=== PATIENT | female | born 1945 | race Caucasian/White ===

== ENCOUNTER 2017-02-18 10:33 | Day surgery (SDC) | payer BC ==
[~2017-02-18 10:33] MED LIST: Acetaminophen TAB* 325 MG PO PRN; Buffered Lidocaine 1% SYR 3ML* 3 ML/SYR SYRINGE INTRADERM ONE
[2017-02-18] MEDS ORDERED: Midazolam* 1 MG/ML 2 ML VIAL (2 MG) ONE (11:15)
[2017-02-18] MEDS ORDERED: fentaNYL* 50 MCG/ML 2 ML VIAL (100 MCG VIAL) ONE (11:15)
[2017-02-18] MEDS ORDERED: Cyclopentolate 1% OPTH.SOL* 2 ML BTL ONE (11:27)
[2017-02-18] MEDS ORDERED: Flurbiprofen 0.03% OPTH.SOL* 2.5 ML BTL ONE (11:27)
[2017-02-18] MEDS ORDERED: Tetracaine 0.5% OPTH.SOL 4 ML* 1 DROP BTL ONE (11:27)
[2017-02-18] MEDS ORDERED: Phenylephrine 2.5% OPTH.SOL* 2 ML BTL ONE (11:27)
[2017-02-18] MEDS ORDERED: Neomycin/Polymy/Dex OPHTH.OIN* 3.5 GM ONE (11:27)
[2017-02-18] MEDS ORDERED: Lidocaine 1% MPF* 2 ML VIAL ONE (11:27)
[2017-02-18] MEDS ORDERED: Tropicamide 1% OPTH.SOL* BTL ONE (11:27)
[2017-02-18 12:27] VITALS: BP 147/85
--- NOTE | 2017-02-18 15:42 | OP ---
DATE OF OPERATION/DATE OF DICTATION: 02/18/2017. DATE OF : 1945. SURGEON: Dr. Orlin Barragan. ACID TESTER: None. ANESTHESIA: Topical with intravenous sedation. PRE-OP DIAGNOSIS: Cataract, left eye. POST-OP DIAGNOSIS: Cataract, left eye. OPERATIVE PROCEDURE: Phacoemulsification and cataract extraction with posterior chamber intraocular lens implant, left eye. COMPLICATIONS: None. BLOOD LOSS: None. OPERATIVE FINDINGS: The patient was brought to the operating room and received a small amount of in travenous sedation. A drop of Tetracaine was placed in her left eye. She was prepped and draped in the usual sterile fashion for ophthalmic surgery and attention was directed to the left eye where a speculum was placed. A paracentesis was created at the 5 o'clock position and 0.1 cc of 1 percent preservative-free Lidocaine was injected into the anterior chamber followed by DisCoVisc. The eye w as digitally stabilized while a 2.75 mm keratome was used to create a triplanar clear corneal incisi on at the 3 o'clock position. A continuous curvilinear capsulorrhexis was created with a cystotome and Utrata forceps. BSS on a cannula was used to hydrodissect the lens from the capsule. Phacoemul sification was performed in a [id number] technique to create four fragments which were remov ed. Residual cortical material was removed with irrigation and aspiration. DisCoVisc was used to in flate the capsular bag and an AUOOTO 18.5 diopter lens was folded and inserted into the capsular bag . DisCoVisc was removed using irrigation and aspiration. BSS on a cannula was used to hydrate the corneal stroma and seal the wound. At the end of the case the pupil was round and the lens was cent ered. The eye was of normal pressure and the wound was water tight. The speculum was removed and to pical Maxitrol ointment was placed on the surface of the eye. The eye was closed, patched and shiel ded and the patient was sent to the recovery room in stable condition with post operative instructio ns and follow-up appointment given. [id number]/[facility] #: [id number]
== END 2017-02-18 12:20 | disposition home or self-care (01) ==
LOC: OREAST 10:33
PROVIDERS: ATTEND Ophthalmology
DX: H25.12 Age-related nuclear cataract, left eye (principal); I10 Essential (primary) hypertension; I25.10 Atherosclerotic heart disease of native coronary artery without angina pectoris; Z87.891 Personal history of nicotine dependence
CPT/HCPCS: A9270-GY; J2250; J3010; V2632

== ENCOUNTER 2017-02-25 07:49 | Day surgery (SDC) | payer BC ==
[~2017-02-25 07:49] MED LIST changes: -Buffered Lidocaine 1% SYR 3ML* 3 ML/SYR SYRINGE INTRADERM ONE; +Buffered Lidocaine 1% SYRIN* 5 ML/SYR SYRINGE INTRADERM ONE
[2017-02-25] MEDS ORDERED: Midazolam* 1 MG/ML 5 ML VIAL (5 MG) ONE (08:55)
[2017-02-25] MEDS ORDERED: fentaNYL* 50 MCG/ML 2 ML VIAL (100 MCG VIAL) ONE (08:55)
[2017-02-25 10:23] VITALS: BP 146/86
--- NOTE | 2017-02-25 10:33 | OP ---
DATE OF OPERATION/DATE OF DICTATION: 02/25/2017 - [facility] DATE OF : 1945. SURGEON: Dr. Orlin Barragan. SANDWICH ARTIST: None. ANESTHESIA: Topical with intravenous sedation. PRE-OP DIAGNOSIS: Cataract, right eye. POST-OP DIAGNOSIS: Cataract, right eye. OPERATIVE PROCEDURE: Phacoemulsification and cataract extraction with posterior chamber intraocular lens implant, right eye. COMPLICATIONS: None. BLOOD LOSS: None. DESCRIPTION OF PROCEDURE: The patient was brought to the operating room and received a small amount of intra-venous sedation. A drop of Tetracaine was placed in her right eye. She was prepped and draped in the usual sterile fashion for ophthalmic surgery and attention was directed to the right eye where a speculum was placed. A paracentesis was created at the 11 o'clock position and 0.1 cc of 1 percent preservative-free Lidocaine was injected into the anterior chamber followed by DisCoVisc. The eye was digitally stabilized while a 2.75 mm keratome was used to create a triplanar clear corneal incision at the 9 o'clock position. A continuous curvilinear capsulorrhexis was created with a cystotome and Utrata forceps. BSS on a cannula was used to hydrodissect the lens from the capsule. Phacoemulsification was performed in a divide-and- conquer technique to create four fragments which were removed. Residual cortical material was removed with irrigation and aspiration. DisCoVisc was used to inflate the capsular bag and an AUOOTO 18.5 diopter lens was folded and inserted into the capsular bag. DisCoVisc was removed using irrigation and aspiration. BSS on a cannula was used to hydrate the corneal stroma and seal the wound. At the end of the case the pupil was round and the lens was centered. The eye was of normal pressure and the wound was water tight. The speculum was removed and topical Maxitrol ointment was placed on the surface of the eye. The eye was closed, patched and shielded and the patient was sent to the recovery room in stable condition with post operative instructions and follow-up appointment given. [id number]/[facility] #: [id number] MTDD
[2017-02-25] MEDS ORDERED: Cyclopentolate 1% OPTH.SOL* 2 ML BTL ONE (13:22)
[2017-02-25] MEDS ORDERED: Lidocaine 1% MPF* 2 ML VIAL ONE (13:22)
[2017-02-25] MEDS ORDERED: Flurbiprofen 0.03% OPTH.SOL* 2.5 ML BTL ONE (13:22)
[2017-02-25] MEDS ORDERED: Tetracaine 0.5% OPTH.SOL 4 ML* 1 DROP BTL ONE (13:22)
[2017-02-25] MEDS ORDERED: Phenylephrine 2.5% OPTH.SOL* 2 ML BTL ONE (13:22)
[2017-02-25] MEDS ORDERED: Tropicamide 1% OPTH.SOL* BTL ONE (13:22)
[2017-02-25] MEDS ORDERED: Neomycin/Polymy/Dex OPHTH.OIN* 3.5 GM ONE (13:22)
== END 2017-02-25 10:12 | disposition home or self-care (01) ==
LOC: OREAST 07:49
PROVIDERS: ATTEND Ophthalmology
DX: H25.11 Age-related nuclear cataract, right eye (principal); I10 Essential (primary) hypertension
CPT/HCPCS: A9270-GY; J2250; J3010; V2632

== ENCOUNTER 2017-06-02 07:36 | Inpatient (IN) | payer BC, MEDICARE ==
[~2017-06-02 07:36] MED LIST changes: -Acetaminophen TAB* 325 MG PO PRN; +Buffered Lidocaine 0.9% SYRIN* 5 ML/SYR SYRINGE INTRADERM ONE; -Buffered Lidocaine 1% SYRIN* 5 ML/SYR SYRINGE INTRADERM ONE; +Dexamethasone IV* 4 MG/ML 1 ML (4 MG) IV SLOW PU ONE; +Famotidine IV* 10 MG/ML 2 ML (20 mg) IV ONE
[2017-06-02] MEDS ORDERED: ceFAZolin 2 GM PREMIX (*) 50 ML IVPB ONE (07:58)
[2017-06-02] MEDS ORDERED: Buffered Lidocaine 0.9% SYRIN* 5 ML/SYR SYRINGE ONE (07:58)
[2017-06-02] MEDS ORDERED: Famotidine IV* 10 MG/ML 2 ML (20 mg) ONE (07:58)
[2017-06-02] MEDS ORDERED: Dexamethasone IV* 4 MG/ML 1 ML (4 MG) ONE ×2 (07:58→08:33)
[2017-06-02] MEDS ORDERED: Ondansetron INJ* 2 MG/ML VIAL ONE (08:33)
[2017-06-02] MEDS ORDERED: Lidocaine 2% PF * 5 ML VIAL ONE (08:33)
[2017-06-02] MEDS ORDERED: Propofol* 10 MG/ML 20 ML BTL IV PUSH ONE (08:33)
[2017-06-02] MEDS ORDERED: Ketorolac INJ* 30 MG/ML 1 ML VIAL ONE (08:33)
[2017-06-02] MEDS ORDERED: fentaNYL* 50 MCG/ML 2 ML VIAL (100 MCG VIAL) ONE ×2 (08:33→11:05)
[2017-06-02] MEDS ORDERED: Midazolam* 1 MG/ML 5 ML VIAL (5 MG) ONE (08:34)
[2017-06-02] MEDS ORDERED: KETAMINE HCL* 50 MG/ML 10 ML VIAL ONE (08:34)
[2017-06-02] MEDS ORDERED: Bupivacaine 0.5% SDV PF* 30 ML VIAL ONE (09:04)
[2017-06-02] MEDS ORDERED: Lidocaine 2% PF* 10 ML AMP ONE ×2 (09:04→12:15)
[2017-06-02] MEDS ORDERED: Cisatracurium* 2 MG/ML MDV 5 ML ONE (09:22)
[2017-06-02] MEDS ORDERED: DiMENhydriNATE IV* 50 MG/ML VIAL IV PUSH PRN (09:59)
[2017-06-02] MEDS ORDERED: HYDROmorphone* 1 MG/ML 1 ML SYR IV PRN (09:59)
[2017-06-02] MEDS ORDERED: Morphine INJ* 2 MG/ML 1 ML SYRINGE IV PRN (10:51)
[2017-06-02] MEDS ORDERED: Acetaminophen TAB* 325 MG PO PRN (10:51)
[2017-06-02] MEDS ORDERED: oxyCODONE TAB* 5 MG TAB PO PRN (10:51)
[2017-06-02] MEDS ORDERED: Temazepam CAP* 15 MG PO PRN (10:57)
[2017-06-02] MEDS ORDERED: diPHENhydraMINE IV* 50 MG/ML 1 ml VIAL (BENADRYL) IV PRN (10:57)
[2017-06-02] MEDS ORDERED: ALPRAZolam TAB* 0.5 MG PO PRN (10:59)
[2017-06-02] MEDS: fentaNYL* 50 MCG/ML 2 ML VIAL (100 MCG VIAL) IV PRN ×4 (11:05→12:01)
[2017-06-02] MEDS ORDERED: HYDROmorphone* 1 MG/ML 1 ML SYR ONE (11:31)
[2017-06-02] MEDS ORDERED: oxyCODONE/Acetamin 5/325 MG* TAB ONE (12:09)
[2017-06-02] MEDS: oxyCODONE/Acetamin 5/325 MG* TAB PO PRN ×3 (12:10→20:36)
[2017-06-02 12:40] LABS: Hematocrit 42 % (35-47); Hemoglobin 13.8 g/dl (12.0-16.0)
[2017-06-02] MEDS: Enoxaparin(*) 30 MG/0.3 ML SYR SUBCUT SCH (16:32)
[2017-06-02] MEDS: ceFAZolin 1 GM VIAL(*) 1 GM in NS 0.9% 50 ML* 50 ML IVPB SCH (17:17)
[2017-06-02] MEDS: Docusate CAP* 100 MG PO SCH (20:36)
[2017-06-03] MEDS: oxyCODONE/Acetamin 5/325 MG* TAB PO PRN ×5 (01:28→23:31)
[2017-06-03] MEDS: ceFAZolin 1 GM VIAL(*) 1 GM in NS 0.9% 50 ML* 50 ML IVPB SCH ×2 (01:28→10:00)
--- NOTE | 2017-06-03 05:06 | OP ---
DATE OF OPERATION: 06/02/17 - ROOM #332 DATE OF : [birth year] SURGEON: Dagoberto Mcgregor MD BOAT GARNISHER: Linda Li PA-C ANESTHESIOLOGIST: Chago Bernardo MD ANESTHESIA: General PRE-OP DIAGNOSIS: Chronic Achilles tendinosis. POST-OP DIAGNOSIS: Chronic Achilles tendinosis. OPERATIVE PROCEDURE: Right Achilles advancement with posterior calcanectomy. DESCRIPTION OF PROCEDURE: The patient was taken to the operating room, prone positioning used. We made a 12-cm longitudinal incision medial to the Achilles tendon. Full-thickness flap was raised off of the tendon and circum-ferentially at the insertion point. We reflected the tendon proximally. There was a large central bone body within the distal tendon, which was debrided and then we performed a posterior calcanectomy with a microsagittal saw. Proximally, a V-Y lengthening was performed with approximately 6-cm limbs, gaining about 2 cm of length. Medial and lateral closure of the V was performed with 2-0 Vicryl sutures. The Achilles was then advanced down to the bed of the calcaneus using through bone sutures of #1 Vicryl. The sutures were tied over the plantar heel, paired sutures were used. We then closed the subcutaneous tissue with 2-0 Vicryl, jeffy for the skin, and a compression dressing plaster splint applied. [id number]/[facility] #: [id number] MTDD
[2017-06-03 06:42] LABS: Mean Platelet Volume 9 um3 (7.4-10.4)
[2017-06-03 06:55] LABS: BUN/Creatinine Ratio 19.8 (8-20); EGFR African American 69.3 (>60); EGFR Non-African American 53.9 (>60); Potassium 4.1 mmol/L (3.5-5.0)
--- NOTE | 2017-06-03 09:26 | PN ---
Progress Note - Progress Note Date of Service: 06/03/17 SOAP: Subjective: []Patient seen at bedside. Admits to putting weight on her splint overnight trying to get to the commode urgently. She understands her NWB status and will get help to use BR. Her pain is managed, she requests rehab here at [facility]. Denies SOB, CP or dizziness. Objective: [] Vital Signs Temp 97.9 F 06/03/17 07:22 Pulse 66 06/03/17 07:25 Resp 16 06/03/17 07:52 BP 107/53 06/03/17 07:25 Pulse Ox 96 06/03/17 07:22 Intake & Output 06/02/17 06/03/17 06/03/17 18:59 06:59 18:59 Intake Total 1350 1913 Output Total 200 1475 300 Balance 1150 438 -300 Weight 261 lb 3.2 oz Intake: IV Fluids 1350 1113 LR 1300 1113 NS 50ML, Cefazolin 2G 50 IVPB 100 ABX - CEFAZOLIN 100 Oral 700 Output: Urine 200 1475 300 Other: # Bowel Movements 0 Laboratory Results - last 24 hr 06/02/17 06/03/17 06/03/17 12:28 05:35 05:35 Hgb 13.8 Hct 42 Plt Count 222 MPV 9 Sodium 137 Potassium 4.1 Chloride 104 Carbon Dioxide 29 Anion Gap 4 BUN 20 Creatinine 1.01 H Est GFR ( Amer) 69.3 Est GFR (Non-Af Amer) 53.9 BUN/Creatinine Ratio 19.8 Glucose 116 H Calcium 9.0 Right ankle spint is dry and intact toes are pink and warm, full sensation with motion Assessment: []s/p Right ankle achillies advancement and calcanectomy, for chronic achillies calcific tendonitis, POD #1 Plan: []PT/OT NWB right LE Lovenox BID [facility] consult
[2017-06-03] MEDS: Gabapentin CAP(*) 300 MG PO SCH (10:03)
[2017-06-03] MEDS: Cholecalciferol TAB* 1000 UNITS PO SCH (10:05)
[2017-06-03] MEDS: Omeprazole CAP* 20 MG PO SCH (10:05)
[2017-06-03] MEDS: Docusate CAP* 100 MG PO SCH ×2 (10:06→20:29)
[2017-06-03] MEDS: Oxybutynin XL TAB* 5 MG PO SCH (10:06)
[2017-06-03] MEDS: Citalopram TAB* 20 MG PO SCH (10:06)
[2017-06-03] MEDS: Lisinopril TAB* 10 MG PO SCH (10:07)
[2017-06-03] MEDS: Lactobacillus Acidophilu (GG)* 1 CAP CAP PO SCH (10:07)
[2017-06-03] MEDS: Enoxaparin(*) 30 MG/0.3 ML SYR SUBCUT SCH (14:53)
[2017-06-03] MEDS: Calcium Carbonate CHEW TAB* 500 MG (TUMS) PO PRN (19:09)
[2017-06-04] MEDS: Calcium Carbonate CHEW TAB* 500 MG (TUMS) PO PRN ×2 (00:46→14:17)
[2017-06-04] MEDS ORDERED: HYDROmorphone* 1 MG/ML 1 ML SYR IV SLOW PU ONE (02:00)
--- NOTE | 2017-06-04 02:00 | PN ---
Progress Note - Progress Note Date of Service: 06/04/17 Note: Called to see patient because of chest pain. She says it started in the back of her neck on the right side. Then migrated down to her right chest to her abdomen. Pain is reproducible on palpation. No SOB. Got percocet without relief. VSS Chest CTA, CV S1S2 isamar RRR, Abd+BS soft NT/ ND EKG NSR no acute st- t wave changes. Unlikely cardiac or PE. Dilaudid 0.5 IV x 1. Cycle trops. Reassured patient
[2017-06-04] MEDS ORDERED: HYDROmorphone* 1 MG/ML 1 ML SYR ONE (02:03)
[2017-06-04] MEDS: Cholecalciferol TAB* 1000 UNITS PO SCH (09:18)
[2017-06-04] MEDS: Gabapentin CAP(*) 300 MG PO SCH (09:18)
[2017-06-04] MEDS: Citalopram TAB* 20 MG PO SCH (09:19)
[2017-06-04] MEDS: Omeprazole CAP* 20 MG PO SCH (09:19)
[2017-06-04] MEDS: Docusate CAP* 100 MG PO SCH ×2 (09:19→21:45)
[2017-06-04] MEDS: Lactobacillus Acidophilu (GG)* 1 CAP CAP PO SCH (09:19)
[2017-06-04] MEDS: Oxybutynin XL TAB* 5 MG PO SCH (09:19)
[2017-06-04] MEDS: Lisinopril TAB* 10 MG PO SCH (09:19)
--- NOTE | 2017-06-04 09:38 | PN ---
Progress Note - Progress Note Date of Service: 06/04/17 SOAP: Subjective: []Patient seen at bedside, sleepy but arouses to voice. She had an episode of posterior right sided neck pain that radiated to her chest. Dr. Sawyer evaluated last night, EKG/labs normal. The patient thinks it was indigestion as she did not have her Nexium medication yesterday. Her pain is currently resolved. Ankle pain is also tolerable. She was denied at [facility]. Objective: [] Vital Signs Temp 99.2 F 06/04/17 07:17 Pulse 85 06/04/17 07:17 Resp 18 06/04/17 09:18 BP 144/62 06/04/17 07:17 Pulse Ox 95 06/04/17 08:00 Intake & Output 06/03/17 06/04/17 06/04/17 18:59 06:59 18:59 Intake Total 930 1442 683 Output Total 1175 700 400 Balance -245 742 283 Intake: IV Fluids 302 683 LR 302 683 Oral 930 1140 Output: Urine 1175 700 400 Other: # Bowel Movements 0 Laboratory Results - last 24 hr 06/04/17 06/04/17 02:24 05:42 Troponin I 0.01 0.02 Right ankle splint remains clean and dry moves toes well full sensation and circulation Assessment: []s/p achillies advancement/ calcanectomy POD #2 Plan: []PT/OT NWB RLE Await SNF bed availability
[2017-06-04] MEDS: oxyCODONE/Acetamin 5/325 MG* TAB PO PRN (13:20)
[2017-06-04] MEDS: Enoxaparin(*) 30 MG/0.3 ML SYR SUBCUT SCH (15:15)
[2017-06-05] MEDS: Calcium Carbonate CHEW TAB* 500 MG (TUMS) PO PRN (06:22)
--- NOTE | 2017-06-05 08:03 | PN ---
PROGRESS NOTE: DATE OF SERVICE: 06/05/17 - ROOM #332 HISTORY: Radha is now 3 days post right Achilles advancement. The splint is clean and dry and intact. She has had some issues with her immobility including incontinence in the bed and recently she was evaluated for some upper gastric pain which did not appear to be cardiac related. She states that she has been missing her Nexium. Radha is in the bed and comfortable, although somewhat anxious about her immobility and the incontinence in the bed. I assured her that this will get better as she gets stronger and is able to use the walker more independently. It sounds like a good plan that she is going to [facility] for rehab. I think she needs to be supervised for at least couple of weeks while she becomes more independent. She does not really have any significant help at home. She needs to be nonweight-bearing for 6 weeks. We will follow her in my office at [facility] which is close to [facility]. [id number]/[facility] #: [id number] MTDD
[2017-06-05] MEDS: Oxybutynin XL TAB* 5 MG PO SCH (09:11)
[2017-06-05] MEDS: Citalopram TAB* 20 MG PO SCH (09:11)
[2017-06-05] MEDS: Lisinopril TAB* 10 MG PO SCH (09:11)
[2017-06-05] MEDS: Docusate CAP* 100 MG PO SCH ×2 (09:11→20:03)
[2017-06-05] MEDS: Cholecalciferol TAB* 1000 UNITS PO SCH (09:12)
[2017-06-05] MEDS: Lactobacillus Acidophilu (GG)* 1 CAP CAP PO SCH (09:12)
[2017-06-05] MEDS: Gabapentin CAP(*) 300 MG PO SCH (09:12)
[2017-06-05] MEDS: Omeprazole CAP* 20 MG PO SCH (09:12)
[2017-06-05] MEDS: oxyCODONE/Acetamin 5/325 MG* TAB PO PRN ×2 (11:01→20:02)
[2017-06-05] MEDS: Enoxaparin(*) 30 MG/0.3 ML SYR SUBCUT SCH (15:04)
--- NOTE | 2017-06-06 08:52 | PN ---
Progress Note - Progress Note Date of Service: 06/06/17 SOAP: Subjective: 72 y/o female s/p achillies advancement/ calcanectomy POD #3. Patient is unsure about returning to home, has 4 steps to get into home/ out of home and would like ambulance to transport her to office appts due to immobility. VSS, afebrile overnight. Objective: General- Well appearing, resting in chair, NAD, comfortable MSK- surgical splint in place, no drainage. + movement of 1-3 toes L side, non -tender, cap refill <2, warm/ pink. no pain L knee, full ROM. Vital Signs Temp 98.1 F 06/06/17 03:25 Pulse 76 06/06/17 03:25 Resp 20 06/06/17 03:25 BP 143/51 06/06/17 03:25 Pulse Ox 90 06/06/17 03:25 Intake & Output 06/05/17 06/06/17 06/06/17 18:59 06:59 18:59 Intake Total 1600 500 0 Output Total 250 300 400 Balance 1350 200 -400 Intake: Oral 1600 500 0 Output: Urine 250 300 400 Other: Estimated Void Large Large # Voids 2 1 Assessment: 72 y/o female s/p achillies advancement/ calcanectomy POD #3. Plan: - D/C to rehab today to continue PT prior to d/c home - Follow up with Dr Carpenter, appt made - Continue current pain regimen - U/A today Active Medications Generic Name Dose Route Start Last Admin Trade Name Freq PRN Reason Stop Dose Admin Acetaminophen 650 mg 06/02/17 10:51 Tylenol Tab* PO Q4H PRN PAIN OR TEMPERATURE Alprazolam 0.5 mg 06/02/17 10:59 06/04/17 00:16 Xanax Tab* PO 0.5 mg BID PRN Administration ANXIETY Calcium Carbonate 1,000 mg 06/03/17 18:42 06/05/17 06:22 Tums* PO 1,000 mg QID PRN Administration INDIGESTION Cholecalciferol 5,000 units 06/03/17 09:00 06/05/17 09:12 Vitamin D Tab* PO 5,000 units QAM JIM Administration Citalopram Hydrobromide 20 mg 06/03/17 09:00 06/05/17 09:11 Celexa Tab* PO 20 mg QAM JIM Administration Diphenhydramine HCl 25 mg 06/02/17 10:57 Benadryl Iv* IV Q6H PRN itching Docusate Sodium 100 mg 06/02/17 21:00 06/05/17 20:03 Colace Cap* PO 100 mg BID JIM Administration Enoxaparin Sodium 30 mg 06/02/17 15:00 06/05/17 15:04 Lovenox(*) SUBCUT 30 mg Q24H JIM Administration Gabapentin 900 mg 06/03/17 09:00 06/05/17 09:12 Neurontin Cap(*) PO 900 mg QAM JIM Administration Lactated Ringer's 1,000 mls @ 75 mls/hr 06/02/17 11:00 06/04/17 07:46 Lactated Ringers 1000 Ml Bag* IV 75 mls/hr PER RATE JIM Administration Lactobacillus Rhamnosus 1 cap 06/03/17 09:00 06/05/17 09:12 Culturelle* PO 1 cap QAM JIM Administration Lisinopril 10 mg 06/03/17 09:00 06/05/17 09:11 Prinivil Tab* PO 10 mg QAM JIM Administration Morphine Sulfate 2 mg 06/02/17 10:51 Morphine Inj (Syringe)* IV Q2H PRN PAIN Omeprazole 20 mg 06/03/17 09:00 06/05/17 09:12 Prilosec Cap* PO 20 mg QAM JIM Administration Protocol Oxybutynin Chloride 15 mg 06/03/17 09:00 06/05/17 09:11 Ditropan Xl Tab* PO 15 mg QAM JIM Administration Oxycodone HCl 10 mg 06/02/17 10:51 06/03/17 12:19 Roxycodone Tab* PO 10 mg Q4H PRN Administration PAIN Oxycodone/Acetaminophen 1 tab 06/02/17 10:51 06/05/17 20:02 Percocet 5/325 Tab* PO 1 tab Q4H PRN Administration PAIN Oxycodone/Acetaminophen 2 tab 06/02/17 10:51 06/04/17 13:20 Percocet 5/325 Tab* PO 2 tab Q4H PRN Administration PAIN Temazepam 15 mg 06/02/17 10:57 Restoril Cap* PO BEDTIME PRN INSOMNIA
[2017-06-06] MEDS: Lactobacillus Acidophilu (GG)* 1 CAP CAP PO SCH (10:30)
[2017-06-06] MEDS: oxyCODONE/Acetamin 5/325 MG* TAB PO PRN (10:30)
[2017-06-06] MEDS: Docusate CAP* 100 MG PO SCH (10:30)
[2017-06-06] MEDS: Oxybutynin XL TAB* 5 MG PO SCH (10:30)
[2017-06-06] MEDS: Omeprazole CAP* 20 MG PO SCH (10:31)
[2017-06-06] MEDS: Cholecalciferol TAB* 1000 UNITS PO SCH (10:31)
[2017-06-06] MEDS: Gabapentin CAP(*) 300 MG PO SCH (10:31)
[2017-06-06] MEDS: Citalopram TAB* 20 MG PO SCH (10:31)
[2017-06-06] MEDS: Lisinopril TAB* 10 MG PO SCH (10:31)
--- NOTE | 2017-06-06 10:37 | DS ---
DISCHARGE SUMMARY: DATE OF ADMISSION: 06/02/17. DATE OF DISCHARGE: 06/06/17. ATTENDING PHYSICIAN: Dr. Mcgregor * (DICTATED BY ART AZEVEDO) CHIEF COMPLAINT: 1. Chronic Achilles tendinosis. 2. GERD. 3. Hypertension. 4. Emphysema. 5. History of gastrointestinal bleed. 6. Depression. 7. Anxiety. DISCHARGE DIAGNOSES: 1. Status post right Achilles advancement with posterior calcanectomy. 2. Gastroesophageal reflux disease. 3. Hypertension. 4. Emphysema. 5. History of gastrointestinal bleed. 6. Depression. 7. Anxiety. PROCEDURE: Right Achilles advancement with posterior calcanectomy, 06/02/17. CONSULTATIONS: 1. Physical therapy. 2. Occupational therapy. 3. Medicine. BRIEF HISTORY: The patient is a pleasant 73-year-old female with a longstanding history of right ankle pain due to chronic Achilles tendinosis, who has elected to undergo a right Achilles advancement with posterior calcanectomy by Dr. Mcgregor on 06/02/17. HOSPITAL COURSE: Ms. Hardwick was admitted to the [facility] on where she underwent a right Achilles advancement posterior calcanectomy by Dr. Mcgregor with general anesthesia. Postoperatively, she recovered on the surgical short stay unit. She was advanced to a regular diet without difficulty and her pain was controlled with p.o. Percocet. Her labs and vital signs remained stable throughout her stay. On postoperative day#2, the patient noted having radiating chest pain which was evaluated by the hospitalist service. She had a normal EKG and serial troponins were negative and the pain was felt to be gastric in nature due to missing a dose of Nexium. She worked with physical therapy and occupational therapy. Her DVT prophylaxis was managed in-house with Lovenox and will be managed at an outpatient with aspirin 325 mg p.o. daily. By postoperative day#4, she was orthopedically and medically stable for discharge to a rehabilitation facility. PHYSICAL EXAMINATION: General: The patient is calm, cooperative, and in no acute distress. Alert and oriented, resting in a chair comfortably. Vital signs: Temperature of 98.1, pulse of 76, respirations 20, blood pressure 143/51 , pulse ox 90 on room air. Examination of the right lower extremity shows that the surgical splint was in place without drainage, positive movement of all toes , both left and right side, nontender. Cap refill less than 2 on right lower extremity with toes being warm and pink. No pain in right or left knee with full range of motion. Sensation to light touch was intact bilaterally. DIAGNOSTIC STUDIES/LAB DATA: None on the date of discharge. DISCHARGE MEDICATIONS: 1. Xanax 0.5 mg p.o. b.i.d. p.r.n. for anxiety. 2. Tylenol 650 mg p.o. q. 4 hours p.r.n. for pain or fever. Not to exceed 4000 mg daily. 3. Tums 100 mg p.o. q.i.d. p.r.n. for indigestion. 4. Vitamin D3 supplementation 5000 international units p.o. q.a.m. 5. Lexapro 10 mg p.o. q.a.m. 6. Colace 100 mg p.o. b.i.d. 7. Gabapentin 900 mg p.o. q.a.m. 8. Lactobacillus probiotic capsule one tablet p.o. q.a.m. 9. Lisinopril 10 mg one tablet p.o. q.a.m. 10. Nexium 20 mg p.o. q.a.m. 11. Oxybutynin 15 mg p.o. q.a.m. 12. Percocet 5/325 one to two tablets every four to six hours as needed for pain. 13. Aspirin 325 mg one tablet daily. 14. Daily multivitamin 1 tablet p.o. q.a.m. CONDITION ON DISCHARGE: Stable. DISCHARGE INSTRUCTIONS: Ms. Hardwick is a very pleasant 72-year-old female, postoperative day #4, status post right Achilles advancement with calcanectomy, which was uncomplicated. She is orthopedically and medically stable for discharge to go a rehabilitation facility. Her vital signs are stable. She was restarted on her home medications. She will take aspirin 325 mg p.o. daily for DVT prophylaxis. She will follow up with Dr. Mcgregor's office for suture removal and splint change and has appointment standing. She will have rehabilitation at her discharge facility. She will continue to take Percocet for pain control and Colace up to 3 times a day for constipation. She was instructed to go immediately to ER should she develop chest pain or shortness of breath and to call the office with any questions or concerns that she may have. ART AZEVEDO [id number]/[facility] #: [id number] SARKIS
[2017-06-06 11:56] VITALS: BP 144/70
[2017-06-06 12:04] LABS: Urine Bilirubin Negative (Negative); Urine Glucose Negative (Negative); Urine Nitrite Negative (Negative)
== END 2017-06-06 11:40 | DRG 314 ==
LOC: AA 07:36 → SSU 12:59
PROVIDERS: ADMIT Orthopaedic Surgery; ATTEND Orthopaedic Surgery
PROC: 0LSQ0ZZ Reposition Right Knee Tendon, Open Approach (ICD-10-PCS; 2017-06-02)
PROC: 0QBL0ZZ Excision of Right Tarsal, Open Approach (ICD-10-PCS; principal; 2017-06-02 09:15)
DX: M76.61 Achilles tendinitis, right leg (principal); I10 Essential (primary) hypertension; K21.9 Gastro-esophageal reflux disease without esophagitis; F32.9 Major depressive disorder, single episode, unspecified; F41.9 Anxiety disorder, unspecified; J43.9 Emphysema, unspecified; R10.9 Unspecified abdominal pain; E78.2 Mixed hyperlipidemia; M19.90 Unspecified osteoarthritis, unspecified site; K22.70 Barrett's esophagus without dysplasia; K58.9 Irritable bowel syndrome, unspecified; Z96.643 Presence of artificial hip joint, bilateral; F34.1 Dysthymic disorder; R32 Unspecified urinary incontinence; T47.1X5A Adverse effect of other antacids and anti-gastric-secretion drugs, initial encounter; Z79.82 Long term (current) use of aspirin; Z88.6 Allergy status to analgesic agent; Z88.5 Allergy status to narcotic agent; Z88.8 Allergy status to other drugs, medicaments and biological substances; Z90.49 Acquired absence of other specified parts of digestive tract; Z98.42 Cataract extraction status, left eye; Z98.41 Cataract extraction status, right eye; Z82.49 Family history of ischemic heart disease and other diseases of the circulatory system; Z80.3 Family history of malignant neoplasm of breast; Z83.3 Family history of diabetes mellitus
CPT/HCPCS: 36415; 80048; 81003; 84484; 85014; 85018; 85049; 88304; 88311; 93005; 94760; A9270-GY; C1776; J0690; J1100; J1170; J1650; J1885; J2001; J2250; J2405; J2704; J3010

== ENCOUNTER 2017-07-18 18:25 | Emergency (ER) | payer BC, MEDICARE ==
--- NOTE | 2017-07-18 20:12 | RAD ---
INDICATION: RIGHT lower extremity pain and edema. Immobility postop. COMPARISON: No relevant prior exams available on the [facility] PACS for comparison. TECHNIQUE: Taylor scale, color Doppler, and spectral analysis of the deep veins of the RIGHT lower extremity. Vessel compression, phasicity, and augmentation assessed. REPORT: The RIGHT common femoral, great saphenous, profunda femoral, femoral, popliteal, and posterior tibial veins are patent. Assessment of the peroneal veins is limited as the patient would not allow compression assessment of the peroneal veins. The peroneal veins appear patent based on color flow and spectral waveforms with preserved augmentation. RIGHT popliteal fossa cyst measuring up to 3.6 x 1.7 x 5.3 cm. Patency of the LEFT common femoral vein documented. IMPRESSION: No evidence for RIGHT lower extremity deep venous thrombosis.
[2017-07-18 20:48] LABS: Hematocrit 40 % (35-47); Hemoglobin 13.3 g/dl (12.0-16.0); Mean Corpuscular HGB Conc 34 g/dl (31-36); Mean Corpuscular Hemoglobin 29 pg (27-31); Mean Corpuscular Volume 86 fL (80-97); Mean Platelet Volume 9 um3 (7.4-10.4); Red Blood Count 4.62 10^6/ul (4.0-5.4); Red Cell Distribution Width 15 % (10.5-15); White Blood Count 7.6 10^3/ul (3.5-10.8)
[2017-07-18 21:03] LABS: Albumin 4.1 g/dL (3.2-5.2); BUN/Creatinine Ratio 21.8 (8-20); Calcium 9.7 mg/dL (8.6-10.3); EGFR African American 69.3 (>60); EGFR Non-African American 53.9 (>60); Globulin 3.5 g/dL (2-4); Potassium 3.6 mmol/L (3.5-5.0); Total Bilirubin 0.8 mg/dL (0.2-1.0); Total Protein 7.6 g/dL (6.4-8.9)
[2017-07-18 22:08] VITALS: BP 138/98
--- NOTE | 2017-07-19 05:07 | ED ---
Larry Dietrich Rebecca, scribed for Saadia Renee MD on 07/18/17 at 1921 . Lower Extremity - HPI Summary HPI Summary: Pt is a 72 y/o F who presents to ED c/o RLE swelling and pain. Sx began two days ago after having a cast removed. Pt had surgery on her Achilles Tendon on with Dr. Mcgregor with the cast being removed two days ago. Reports that the swelling is predominantly in the calf and foot, without the thigh affected as much. Pain is currently moderate, ranked 5/10. Sx aggravated and alleviated by nothing. Additionally c/o posterior neck pain. Denies SOB, MIRANDA, blurred vision, diplopia, vomiting, diarrhea, dysuria, hematuria, blood in stool and recent rashes or ecchymosis. No recent extended travel. - History of Current Complaint Chief Complaint: EDExtremityLower Stated Complaint: POST OP/RT LEG SWOLLEN Time Seen by Provider: 07/18/17 19:10 Hx Obtained From: Patient Onset of Pain: Days - 2 days Onset/Duration: Still Present Severity Currently: Moderate Pain Intensity: 5 Pain Scale Used: 0-10 Numeric Location: Is Discrete @ - RLE - predominantly calf and foot Associated Signs And Symptoms: Positive: Swelling Aggravating Factor(s): Nothing Alleviating Factor(s): Nothing - Allergies/Home Medications Allergies/Adverse Reactions: Allergies Allergy/AdvReac Type Severity Reaction Status Date / Time Statins Allergy Severe BODY FEELS Verified 06/02/17 08:07 LIKE ITS IN A VISE Metoclopramide [From Reglan] Allergy Unknown Verified 06/02/17 08:07 Reaction Details NSAIDs Allergy CAN'T TAKE Verified 06/02/17 08:07 DUE TO GASTRIC SURGERY Codeine AdvReac Severe Hallucinati Verified 06/02/17 08:07 ons Meperidine [From Demerol HCl] AdvReac Severe Hallucinati Verified 06/02/17 08:07 ons Morphine AdvReac Severe Hallucinati Verified 06/02/17 08:07 ons Nitroglycerin AdvReac Intermediate SYNCOPAL Verified 06/02/17 08:07 PMH/Surg Hx/FS Hx/Imm Hx Endocrine/Hematology History: Denies: Hx Diabetes Cardiovascular History: Reports: Hx Coronary Artery Disease, Hx Hypercholesterolemia, Hx Hypertension, Other Cardiovascular Problems/Disorders - ATHEROSCLEROSIS DX 2013 Denies: Hx Pacemaker/ICD GI History: Reports: Hx Gastroesophageal Reflux Disease - controlled with medication, Hx Irritable Bowel - listed in H&P, Other GI Disorders - Hx ischemic colitis, (in chart) History: Reports: Other Problems/Disorders - stress incontinence/ wears pad Denies: Hx Renal Disease Musculoskeletal History: Reports: Hx Arthritis - possible in knees, Other Musculoskeletal History - right torn achilles tendon Sensory History: Reports: Hx Cataracts - February 2015, Hx Contacts or Glasses - reading Denies: Hx Hearing Aid Opthamlomology History: Reports: Hx Cataracts - February 2015, Hx Contacts or Glasses - reading Neurological History: Denies: Hx Headaches Psychiatric History: Reports: Hx Anxiety - controlled with medication, Hx Depression - controlled with medication Denies: Hx Panic Disorder - Cancer History Hx Chemotherapy: No Hx Radiation Therapy: No - Surgical History Surgery Procedure, Year, and Place: CHOLECYSTECTOMY 1987, BILATERAL HIP REPLACEMENTS, 2005, 2009. EXPLORATORY ABD 2003. CATARACT 2016. 1987 - GASTRIC BYPASS, PREVOUSLY - LAP BAND - THEN REVERSAL . 1996 - ABDOMINOPLASTY & PANNICULECTOMY; 1997 - COSMETIC -THIGHS ( REMOVAL OF SKIN) : 2002 OPEN WOUND - ABD AREA FROM PREV SURG -. 2010 LT KNEE. 2004 - CARDIAC CATH - NO STENTS. gastric bypass revision/reversal 2014 Hx Anesthesia Reactions: No Infectious Disease History: No Infectious Disease History: Denies: Traveled Outside the [place] in Last 30 Days - Family History Known Family History: Positive: Cardiac Disease - Social History Alcohol Use: Rare Alcohol Amount: 1-2 drinks, one-two x a year Substance Use Type: Reports: None Substance Use Comment - Amount & Last Used: 1-2 x a day Hx Tobacco Use: No Smoking Status (MU): Former Smoker Amount Used/How Often: smoked for approx 10 yrs, 1 ppd Review of Systems Negative: Blurred Vision, Diplopia Negative: Shortness Of Breath Negative: Vomiting, Diarrhea Positive: other - NEGATIVE: blood in stool. Negative: dysuria, hematuria Positive: Other - Posterior neck pain Positive: Other - RLE pain and swelling. Negative: Rash, Bruising Negative: Headache Positive: Other - NEGATIVE: SIs All Other Systems Reviewed And Are Negative: Yes Physical Exam - Summary Physical Exam Summary: Appearance: Alert, conversive, nontoxic appearing Skin: Warm, dry, no mottling, no rashes, no contusions HEENT: EOMI, PERRL, moist mucous membranes Neck: No masses on the neck, supple Respiratory: Clear to auscultation, breath sounds present, no rales, no rhonchi , no wheezes Cardiovascular: RRR, pulses are symmetrical in both lower and upper extremities Abdomen: Soft, non-tender Bowel Sounds: Present Musculoskeletal: Right calf is slightly swollen and tender, no CVA tenderness, no obvious deformity, moving all extremities in a grossly normal manner Neurological: A&Ox3, CN II-XII Intact, moving all extremities symmetrically Psychiatric: Normal affect and mood Triage Information Reviewed: Yes Vital Signs On Initial Exam: Initial Vitals Temp Pulse Resp BP Pulse Ox 98.1 F 82 20 144/109 94 07/18/17 18:36 07/18/17 18:36 07/18/17 18:36 07/18/17 18:36 07/18/17 18:36 Vital Signs Reviewed: Yes Diagnostics - Vital Signs Vital Signs Temp Pulse Resp BP Pulse Ox 07/18/17 18:36 98.1 F 82 20 144/109 94 - Laboratory Lab Results: Lab Results 07/18/17 07/18/17 07/18/17 Range/Units 20:15 20:15 20:15 WBC 7.6 (3.5-10.8) 10^3/ul RBC 4.62 (4.0-5.4) 10^6/ul Hgb 13.3 (12.0-16.0) g/dl Hct 40 (35-47) % MCV 86 (80-97) fL MCH 29 (27-31) pg MCHC 34 (31-36) g/dl RDW 15 (10.5-15) % Plt Count 254 (150-450) 10^3/ul MPV 9 (7.4-10.4) um3 Neut % (Auto) 65.4 (38-83) % Lymph % (Auto) 24.4 L (25-47) % Mcleod % (Auto) 7.3 (1-9) % Eos % (Auto) 2.1 (0-6) % Baso % (Auto) 0.8 (0-2) % Absolute Neuts (auto) 5.0 (1.5-7.7) 10^3/ul Absolute Lymphs (auto) 1.9 (1.0-4.8) 10^3/ul Absolute Monos (auto) 0.6 (0-0.8) 10^3/ul Absolute Eos (auto) 0.2 (0-0.6) 10^3/ul Absolute Basos (auto) 0.1 (0-0.2) 10^3/ul Absolute Nucleated RBC 0.01 10^3/ul Nucleated RBC % 0.1 INR (Anticoag Therapy) 0.90 (0.89-1.11) APTT 32.6 (26.0-36.3) seconds Sodium 138 (133-145) mmol/L Potassium 3.6 (3.5-5.0) mmol/L Chloride 103 (101-111) mmol/L Carbon Dioxide 28 (22-32) mmol/L Anion Gap 7 (2-11) mmol/L BUN 22 (6-24) mg/dL Creatinine 1.01 H (0.51-0.95) mg/dL Est GFR ( Amer) 69.3 (>60) Est GFR (Non-Af Amer) 53.9 (>60) BUN/Creatinine Ratio 21.8 H (8-20) Glucose 88 (70-100) mg/dL Calcium 9.7 (8.6-10.3) mg/dL Total Bilirubin 0.80 (0.2-1.0) mg/dL AST 14 (13-39) U/L ALT 16 (7-52) U/L Alkaline Phosphatase 66 (34-104) U/L Total Protein 7.6 (6.4-8.9) g/dL Albumin 4.1 (3.2-5.2) g/dL Globulin 3.5 (2-4) g/dL Albumin/Globulin Ratio 1.2 (1-3) Result Diagrams: 07/18/17 20:15 07/18/17 20:15 Lab Statement: Any lab studies that have been ordered have been reviewed, and results considered in the medical decision making process. - Ultrasound No standard instances Ultrasound Interpretation: No Acute Changes - Venous Doppler Study: No evidence for RIGHT lower extremity deep venous thrombosis. ED physician reviewed radiology report and agrees. Ultrasound Interpretation Completed By: Radiologist Re-Evaluation - Re-Evaluation First Eval Re-Evaluation Time: 21:04 Comment: Discussed US results with the pt and inspected the incision which is clean and does not appear infected. Lower Extremity Course/Dx - Course Assessment/Plan: Pt is a 72 y/o F who presents to ED c/o RLE swelling and pain for two days after having a cast removed. Pt had surgery on her Achilles Tendon on 06/[address] Mcgregor with the cast being removed two days ago. Reports that the swelling is predominantly in the calf and foot, without the thigh affected as much. Pain is currently moderate, ranked 5/10. Additionally c/o posterior neck pain. Denies SOB, MIRANDA, blurred vision, diplopia, vomiting, diarrhea, dysuria , hematuria, blood in stool and recent rashes or ecchymosis. No recent extended travel. Venous doppler study negative for DVT. Pt will be D/C to home with Dx of leg pain and advised to keep her scheduled follow up with her PCP. She understands and agrees. Allergies noted. Elevated BP noted. - Diagnoses Differential Diagnosis/HQI/PQRI: Positive: Cellulitis, DVT, Strain Provider Diagnoses: Leg pain Discharge - Discharge Plan Condition: Stable Disposition: HOME Patient Education Materials: Leg Pain (ED) Referrals: Dallas Cornelius MD [Primary Care Provider] - 1 Week Additional Instructions: Please follow up with your doctor. keep your follow up appt in 6 days. if you have persistent pain and swelling, you will need a repeat ultrasound in 1 week to reasses for a blood clot in your leg. today's ultrasound did not show a blood clot in your leg. take tylenol for pain. The documentation as recorded by the Larry colon Rebecca accurately reflects the service I personally performed and the decisions made by , Saadia Renee MD.
== END 2017-07-18 22:06 | disposition home or self-care (01) ==
LOC: ED 18:25
DX: M79.604 Pain in right leg (principal); M79.89 Other specified soft tissue disorders; Z88.8 Allergy status to other drugs, medicaments and biological substances; Z88.5 Allergy status to narcotic agent; I25.10 Atherosclerotic heart disease of native coronary artery without angina pectoris; I10 Essential (primary) hypertension; K21.9 Gastro-esophageal reflux disease without esophagitis; Z87.891 Personal history of nicotine dependence
CPT/HCPCS: 36415; 80053; 85025; 85610; 85730; 99282

== ENCOUNTER 2018-03-08 08:38 | Observation (INO) | payer BC, MEDICARE ==
[2018-03-08] MEDS ORDERED: NS 0.9% 1000 ML* 1,000 ML IV ONE (09:17)
[2018-03-08 10:07] LABS: Hematocrit 42 % (35-47); Hemoglobin 13.7 g/dl (12.0-16.0); Mean Corpuscular HGB Conc 33 g/dl (31-36); Mean Corpuscular Hemoglobin 29 pg (27-31); Mean Corpuscular Volume 87 fL (80-97); Mean Platelet Volume 9.3 um3 (7.4-10.4); Platelet Count 296 10^3/ul (150-450); Red Blood Count 4.79 10^6/ul (4.0-5.4); Red Cell Distribution Width 15 % (10.5-15)
[2018-03-08 10:16] LABS: INR 0.94 (0.77-1.02)
[2018-03-08 10:20] LABS: ABS Basophils 0.1 10^3/ul (0-0.2); ABS Eosinophils 0.1 10^3/ul (0-0.6); ABS Lymphocytes 1.5 10^3/ul (1.0-4.8); ABS Neutrophils 14.1 10^3/ul (1.5-7.7); ABS Nucleated RBC 0 10^3/ul; Eosinophil % 0.7 % (0-6); Lymphocyte % 8.8 % (25-47); Nucleated Red Blood Cells % 0.1
[2018-03-08 10:27] LABS: EGFR Non-African American 43.7 (>60)
[2018-03-08 10:30] LABS: Urine Appearance Clear; Urine Blood Negative (Negative); Urine Color Yellow; Urine Ketones Negative (Negative); Urine Protein Negative (Negative); Urine Specific Gravity 1.018 (1.010-1.030); Urine Urobilinogen Negative (Negative)
--- NOTE | 2018-03-08 12:05 | RAD ---
INDICATION: LEFT lower quadrant pain. Blood in stools. Previous bariatric surgery, cholecystectomy. COMPARISON: July 18, 2014 CT. TECHNIQUE: Multidetector CT images were obtained from the lung bases to the ischial tuberosities. Evaluation of the viscera is limited without IV contrast. Multiplanar reformation. REPORT: 0.9 cm nodule at the posterior basal segment of the LEFT lower lobe is unchanged from the 2014 exam without concern. Post cholecystectomy. No CT abnormality of the unenhanced liver. Negative for biliary dilatation. Mildly atrophic pancreas without suspicious finding. Unremarkable spleen. Small hiatal hernia with interval decrease in size. Surgical clips at the stomach corresponding with surgical history. Artifact from the bilateral hip prostheses significantly limits image quality at the pelvis. Negative for visualized CT abnormality of the small bowel or appendix. Mild perienteric inflammatory change at the level of the distal descending and proximal sigmoid colon. A few colonic diverticula are visualized however no specific inflamed diverticulum is visualized. The colon appears featureless from the distal transverse colon through the rectum. Only trace pelvic free fluid. Negative for free air or hernias. Normal adrenal glands. Small exophytic cortical cyst mid pole RIGHT kidney. 1.7 cm cortical cyst upper pole RIGHT kidney. Negative for suspicious focal renal lesions, nephrolithiasis, or hydronephrosis. No abnormality along the course of the visualized nondilated ureters or at the distal ureters and urinary bladder are obscured due to artifact from the bilateral hip joint orthopedic hardware. Unremarkable RIGHT adnexal region. 1.3 cm water density cyst of the atrophic LEFT ovary is decreased in size from the prior exam without concern. Negative for lymphadenopathy. Atherosclerotic calcification of normal diameter abdominal aorta and iliac arteries. Physiologic distention of the IVC. Polyarticular degenerative arthropathy. No fracture or suspicious focal osseous lesions evident. IMPRESSION: 1. Mild pericolonic inflammatory change at the distal descending and proximal sigmoid segment as well as featureless morphology of the colon most suspicious for potential ulcerative colitis. In the acute setting the differential would include infectious colitis as well as potential ischemic colitis. 2. Only trace free fluid at the pelvis. No perienteric abscess or free air evident. 3. Negative for obstructive uropathy. 4. Negative for lymphadenopathy.
[2018-03-08] MEDS ORDERED: Ciprofloxacin 400MG IVPREMIX(* 400 MG/200 ML BAG IVPB ONE (12:24)
[2018-03-08] MEDS ORDERED: metroNIDAZOLE IV 500 MG/100ML* 500 MG/100 ML BAG IVPB ONE (12:24)
[2018-03-08] MEDS ORDERED: NS 0.9% 1000 ML* 1,000 ML IV SCH (12:30)
[2018-03-08] MEDS ORDERED: oxyCODONE/Acetamin 5/325 MG* TAB PO PRN (14:31)
[2018-03-08] MEDS ORDERED: Ondansetron INJ* 2 MG/ML VIAL IV PRN (14:31)
[2018-03-08 15:00] LABS: Hematocrit 38 % (35-47); Hemoglobin 12.5 g/dl (12.0-16.0)
--- NOTE | 2018-03-08 15:48 | ED ---
Merlene Dietrich Emily, scribed for Paras Mccain MD on 03/08/18 at 0953 . GI/ HPI - HPI Summary HPI Summary: This patient is a 72 year old F presenting to [facility] with a chief complaint of rectal bleeding that began yesterday night. The patient rates the pain 8/10 in severity. Symptoms aggravated by nothing. Symptoms alleviated by nothing. Patient reports lower abd pain. Patient denies lightheadedness. Pt reports she has a history of a GI bleed that occurred 4 years ago. She denies a history of diverticulitis. - History of Current Complaint Chief Complaint: EDGIBleed Time Seen by Provider: 03/08/18 09:39 Stated Complaint: RECTAL BLEEDING Hx Obtained From: Patient Onset/Duration: Started Hours Ago, Still Present Timing: Constant, Lasting Hours Severity: Severe Current Severity: Severe Pain Intensity: 8 Location of Pain: Other - Lower abd pain Additional Signs & Symptoms: Positive: Other: - Positive lower abd pain. Negative lightheadedness. Aggravating Factor(s): Nothing Alleviating Factor(s): Nothing - Allergy/Home Medications Allergies/Adverse Reactions: Allergies Allergy/AdvReac Type Severity Reaction Status Date / Time codeine Allergy Hallucinati Verified 03/08/18 08:46 ons meperidine [From Demerol] Allergy Hallucinati Verified 03/08/18 08:42 ons metoclopramide [From Reglan] Allergy Hallucinati Verified 03/08/18 08:46 ons morphine Allergy Hallucinati Verified 03/08/18 08:42 ons nitroglycerin Allergy See Comment Verified 03/08/18 08:46 NSAIDS (Non-Steroidal Allergy See Comment Verified 03/08/18 08:46 Anti-Inflamma statins Allergy See Comment Uncoded 03/08/18 08:42 Home Medications: Home Medications Allopurinol TAB* [Zyloprim 300 MG TAB*] 300 mg PO DAILY 03/08/18 [History Confirmed 03/08/18] Calcium Citrate 500 mg PO BID 03/08/18 [History Confirmed 03/08/18] L.acidoph,Paracasei, B.lactis [Probiotic] 1 cap PO DAILY 03/08/18 [History Confirmed 03/08/18] Methylcobalamine (NF) [B-12] 5,000 mcg SL DAILY 03/08/18 [History Confirmed 12/21] Oxybutynin XL TAB* [Ditropan XL TAB*] 15 mg PO DAILY 03/08/18 [History Confirmed 03/08/18] PMH/Surg Hx/FS Hx/Imm Hx Previously Healthy: No Endocrine/Hematology History: Denies: Hx Diabetes Cardiovascular History: Reports: Hx Coronary Artery Disease, Hx Hypercholesterolemia, Hx Hypertension, Other Cardiovascular Problems/Disorders - ATHEROSCLEROSIS DX 2013 Denies: Hx Pacemaker/ICD GI History: Reports: Hx Gastroesophageal Reflux Disease - controlled with medication, Hx Irritable Bowel - listed in H&P, Other GI Disorders - Hx ischemic colitis, (in chart) History: Reports: Other Problems/Disorders - stress incontinence/ wears pad Denies: Hx Renal Disease Musculoskeletal History: Reports: Hx Arthritis - possible in knees, Other Musculoskeletal History - right torn achilles tendon Sensory History: Reports: Hx Cataracts - February 2015, Hx Contacts or Glasses - reading Denies: Hx Hearing Aid Opthamlomology History: Reports: Hx Cataracts - February 2015, Hx Contacts or Glasses - reading Neurological History: Denies: Hx Headaches Psychiatric History: Reports: Hx Anxiety - controlled with medication, Hx Depression - controlled with medication Denies: Hx Panic Disorder - Cancer History Hx Chemotherapy: No Hx Radiation Therapy: No - Surgical History Surgery Procedure, Year, and Place: CHOLECYSTECTOMY 1987, BILATERAL HIP REPLACEMENTS, 2005, 2009. EXPLORATORY ABD 2003. CATARACT 2017. 1987 - GASTRIC BYPASS, PREVOUSLY - LAP BAND - THEN REVERSAL . 1996 - ABDOMINOPLASTY & PANNICULECTOMY; 1997 - COSMETIC -THIGHS ( REMOVAL OF SKIN) : 2002 OPEN WOUND - ABD AREA FROM PREV SURG -. 2010 LT KNEE. 2004 - CARDIAC CATH - NO STENTS. gastric bypass revision/reversal 2014 Hx Anesthesia Reactions: No Infectious Disease History: No Infectious Disease History: Denies: Traveled Outside the [place] in Last 30 Days - Family History Known Family History: Positive: Cardiac Disease - Social History Occupation: Retired Lives: With Family Alcohol Use: Rare Alcohol Amount: 1-2 drinks, one-two x a year Hx Substance Use: No Substance Use Type: Reports: None Hx Tobacco Use: No Smoking Status (MU): Former Smoker Amount Used/How Often: smoked for approx 10 yrs, 1 ppd Review of Systems Positive: Abdominal Pain, Other - Positive rectal bleeding Neurological: Other - Negative lightheadedness All Other Systems Reviewed And Are Negative: Yes Physical Exam - Summary Physical Exam Summary: General: well-appearing, no pain distress Skin: warm, color reflects adequate perfusion, dry Head: normal Eyes: EOMI, ALLYSSA ENT: normal Neck: supple, nontender Respiratory: CTA, breath sounds present Cardiovascular: RRR Abdomen: soft, Generalized abd bloating. Mild tympani to percussion. Tender to palpation LLQ. Bowel: present Musculoskeletal: normal, strength/ROM intact Neurological: sensory/motor intact, A&O x3 Psychological: affect/mood appropriate Triage Information Reviewed: Yes Vital Signs On Initial Exam: Initial Vitals Temp Pulse Resp BP Pulse Ox 99.1 F 91 16 120/68 95 03/08/18 08:42 03/08/18 08:42 03/08/18 08:42 03/08/18 08:42 03/08/18 08:42 Vital Signs Reviewed: Yes Diagnostics - Vital Signs Vital Signs Temp Pulse Resp BP Pulse Ox 03/08/18 09:20 92 03/08/18 09:10 83 109/50 97 03/08/18 08:42 99.1 F 91 16 120/68 95 - Laboratory Lab Results: Lab Results 03/08/18 03/08/18 03/08/18 Range/Units 09:32 09:32 09:32 WBC 17.0 H (3.5-10.8) 10^3/ul RBC 4.79 (4.0-5.4) 10^6/ul Hgb 13.7 (12.0-16.0) g/dl Hct 42 (35-47) % MCV 87 (80-97) fL MCH 29 (27-31) pg MCHC 33 (31-36) g/dl RDW 15 (10.5-15) % Plt Count 296 (150-450) 10^3/ul MPV 9.3 (7.4-10.4) um3 Neut % (Auto) 84.0 H (38-83) % Lymph % (Auto) 8.8 L (25-47) % Gates % (Auto) 6.0 (0-7) % Eos % (Auto) 0.7 (0-6) % Baso % (Auto) 0.5 (0-2) % Absolute Neuts (auto) 14.1 H (1.5-7.7) 10^3/ul Absolute Lymphs (auto) 1.5 (1.0-4.8) 10^3/ul Absolute Monos (auto) 1.0 H (0-0.8) 10^3/ul Absolute Eos (auto) 0.1 (0-0.6) 10^3/ul Absolute Basos (auto) 0.1 (0-0.2) 10^3/ul Absolute Nucleated RBC 0 10^3/ul Nucleated RBC % 0.1 ESR 33 (0-40) mm/Hr INR (Anticoag Therapy) 0.94 (0.77-1.02) APTT 29.1 (26.0-36.3) seconds Sodium 137 L (139-145) mmol/L Potassium 3.8 (3.5-5.0) mmol/L Chloride 100 L (101-111) mmol/L Carbon Dioxide 27 (22-32) mmol/L Anion Gap 10 (2-11) mmol/L BUN 27 H (6-24) mg/dL Creatinine 1.21 H (0.51-0.95) mg/dL Est GFR ( Amer) 56.3 (>60) Est GFR (Non-Af Amer) 43.7 (>60) BUN/Creatinine Ratio 22.3 H (8-20) Glucose 113 H (70-100) mg/dL Lactic Acid (0.5-2.0) mmol/L Calcium 10.2 (8.6-10.3) mg/dL Total Bilirubin 0.80 (0.2-1.0) mg/dL AST 14 (13-39) U/L ALT 13 (7-52) U/L Alkaline Phosphatase 65 (34-104) U/L C-Reactive Protein 32.47 H (< 5.00) mg/L Total Protein 7.6 (6.4-8.9) g/dL Albumin 4.1 (3.2-5.2) g/dL Globulin 3.5 (2-4) g/dL Albumin/Globulin Ratio 1.2 (1-3) Lipase < 10 L (11.0-82.0) U/L Urine Color Urine Appearance Urine pH (5-9) Ur Specific Garrison (1.010-1.030) Urine Protein (Negative) Urine Ketones (Negative) Urine Blood (Negative) Urine Nitrate (Negative) Urine Bilirubin (Negative) Urine Urobilinogen (Negative) Ur Leukocyte Esterase (Negative) Urine Glucose (Negative) Blood Type Antibody Screen 03/08/18 03/08/18 03/08/18 Range/Units 09:32 09:32 10:19 WBC (3.5-10.8) 10^3/ul RBC (4.0-5.4) 10^6/ul Hgb (12.0-16.0) g/dl Hct (35-47) % MCV (80-97) fL MCH (27-31) pg MCHC (31-36) g/dl RDW (10.5-15) % Plt Count (150-450) 10^3/ul MPV (7.4-10.4) um3 Neut % (Auto) (38-83) % Lymph % (Auto) (25-47) % Gates % (Auto) (0-7) % Eos % (Auto) (0-6) % Baso % (Auto) (0-2) % Absolute Neuts (auto) (1.5-7.7) 10^3/ul Absolute Lymphs (auto) (1.0-4.8) 10^3/ul Absolute Monos (auto) (0-0.8) 10^3/ul Absolute Eos (auto) (0-0.6) 10^3/ul Absolute Basos (auto) (0-0.2) 10^3/ul Absolute Nucleated RBC 10^3/ul Nucleated RBC % ESR (0-40) mm/Hr INR (Anticoag Therapy) (0.77-1.02) APTT (26.0-36.3) seconds Sodium (139-145) mmol/L Potassium (3.5-5.0) mmol/L Chloride (101-111) mmol/L Carbon Dioxide (22-32) mmol/L Anion Gap (2-11) mmol/L BUN (6-24) mg/dL Creatinine (0.51-0.95) mg/dL Est GFR ( Amer) (>60) Est GFR (Non-Af Amer) (>60) BUN/Creatinine Ratio (8-20) Glucose (70-100) mg/dL Lactic Acid 1.3 (0.5-2.0) mmol/L Calcium (8.6-10.3) mg/dL Total Bilirubin (0.2-1.0) mg/dL AST (13-39) U/L ALT (7-52) U/L Alkaline Phosphatase (34-104) U/L C-Reactive Protein (< 5.00) mg/L Total Protein (6.4-8.9) g/dL Albumin (3.2-5.2) g/dL Globulin (2-4) g/dL Albumin/Globulin Ratio (1-3) Lipase (11.0-82.0) U/L Urine Color Yellow Urine Appearance Clear Urine pH 5.0 (5-9) Ur Specific Garrison 1.018 (1.010-1.030) Urine Protein Negative (Negative) Urine Ketones Negative (Negative) Urine Blood Negative (Negative) Urine Nitrate Negative (Negative) Urine Bilirubin Negative (Negative) Urine Urobilinogen Negative (Negative) Ur Leukocyte Esterase Negative (Negative) Urine Glucose Negative (Negative) Blood Type O Positive Antibody Screen Negative Result Diagrams: 03/08/18 14:50 03/08/18 09:32 Lab Statement: Any lab studies that have been ordered have been reviewed, and results considered in the medical decision making process. - CT CT Abdomen and Pelvis CT Interpretation Completed By: Radiologist GIGU Course/Dx - Course Course Of Treatment: ADMIT HOSPITALIST. CRITICAL CARE TIME LESS THAN 30 MINUTES. - Diagnoses Provider Diagnoses: Abdominal pain, Colitis, GI bleed - Physician Notifications Discussed Care Of Patient With: Emilee Rivas Time Discussed With Above Provider: 11:50 Instructed by Provider To: Other - Consult with Dr. Rivas (hospitalist) at 1201. She communicated that there is no GI front line leader, so patient may need to be transferred if there is a GI bleed. Consult with Dr. Rivas (hospitalist) at 1223. She agreed to admit pt for further evaluaiton. Discharge - Sign-Out/Discharge Documenting (check all that apply): Discharge/Admit/Transfer - [place] [facility] [place] Plan Condition: Stable Disposition: ADMITTED TO [facility] - Billing Disposition and Condition Condition: STABLE [place] [place] The documentation as recorded by the Merlene colon Emily accurately reflects the service I personally performed and the decisions made by , Paras Mccain MD.
--- NOTE | 2018-03-08 18:17 | HP ---
CC: Dallas Cornelius MD * HISTORY AND PHYSICAL: DATE OF ADMISSION: 03/08/18 TIME OF EVALUATION: 1400 PRIMARY CARE PHYSICIAN: Dallas Cornelius MD. CHIEF COMPLAINT: Abdominal pain and bright red blood per rectum. HISTORY OF PRESENT ILLNESS: This is a 72-year-old female with a past medical history of a GI bleed in 2013, who presents to the emergency room with acute onset of abdominal pain and diarrhea. The patient states she was in her usual state of health and about half an hour after she ate dinner at [employer], she began with abdominal pain, cramping, bloody stools with bright red blood, nausea, and dry retching. The patient states she was up all night in the bathroom with dry heaving and diarrhea and came to the emergency room for concern with no improvement and persistent bloody bowel movements. She states her abdominal discomfort and cramping have improved somewhat. Her dry heaving has improved. She is still having bright red blood per rectum. She denies any aspirin or NSAIDs use. She denies lightheadedness. No dizziness. No falls. No chest pain or shortness of breath. No urinary symptoms. Her did not get sick and she states they had similar food. She states she had a colonoscopy 2 months ago that was normal. She denies any changes in her weight. Otherwise, review of systems is negative. In the emergency room, the patient had labs and imaging. She was given a liter of normal saline, Cipro and Flagyl and referred to the hospitalist service for further evaluation. PAST MEDICAL HISTORY: 1. 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 2. Upper GI bleed with no source identified. 3. History of gastric stapling in the past. 4. Morbid obesity. 5. GERD. 6. Hypertension. 7. Hyperlipidemia. 8. History of bilateral hip replacements. 9. Arthritis. 10. History of gastric stenosis in the past, status post dilatation in the past. 11. History of gastric stapling in the past. 12. History of neuropathy. 13. Gout. MEDICATIONS: 1. Probiotic 1 cap daily. 2. Calcium citrate 500 mg p.o. b.i.d. 3. Allopurinol 200 mg p.o. daily. 4. Methylcobalamin 5000 mcg sublingual daily. 5. Oxybutynin 50 mg p.o. daily. 6. Mirabegron 50 mg p.o. daily. 7. Lisinopril 10 mg p.o. daily. 8. Gabapentin 300 mg p.o. t.i.d. 9. Nexium 20 mg p.o. in the morning. 10. Lexapro 10 mg q.a.m. ALLERGIES: CODEINE, DEMEROL, REGLAN, MORPHINE, NITRO, NSAIDS, and STATINS. FAMILY HISTORY: No history of GI disorders. SOCIAL HISTORY: The patient lives at home with her , Julian Hardwick, who is the healthcare proxy. She does admit to smoking marijuana for almost 40 years daily twice a day. No alcohol use, no illicit drug use. CODE STATUS: Full code. REVIEW OF SYSTEMS: A 14-point review of systems as mentioned in the HPI, otherwise negative. PHYSICAL EXAMINATION GENERAL: No acute distress, resting comfortably. VITAL SIGNS: Temperature 99.1, pulse rate 83, respiratory rate 20, oxygen saturation 95% on room air, blood pressure 117/58. HEENT: Head: Normocephalic. Pupils are equal and reactive, anicteric. Oropharynx: Mucous membranes are moist. NECK: Supple. No lymphadenopathy. RESPIRATORY: Diminished breath sounds. No wheezing, rhonchi, or rales. CARDIAC: Regular rate and rhythm. Soft systolic murmur heard throughout. ABDOMEN: Hyperactive bowel sounds. Nondistended. Diffusely tender. No rebound or guarding. EXTREMITIES: No clubbing, cyanosis, or edema. +1 DPs. NEUROLOGICAL: Alert and oriented x3. No focal neurologic deficits. LABORATORY DATA: White count 17, hemoglobin 13.7, hematocrit 42, platelets 296 ,000. INR is 0.94. Sodium 137, potassium 3.8, chloride 100, bicarb 27, BUN 27 , creatinine 1.21, glucose 113, CRP is 32. Urine is unremarkable. RADIOGRAPHIC DATA: Abdomen and pelvis CT shows mild pericolonic inflammatory change at the distal descending and proximal sigmoid segment as well as featureless morphology of the colon most suspicious for potential ulcerative colitis. In the acute setting, the differential included infectious colitis as well as potential ischemic colitis. Negative for obstructive uropathy. Negative for lymphedema. ASSESSMENT: This is a 72-year-old female with the past medical history of complications related to her gastric stapling, who presents to the emergency room with acute onset of nausea, vomiting, diarrhea, and bloody stools. 1. Nausea, vomiting, bloody stools, and abdominal pain. Assessment: The patient's history and physical are most consistent with infectious gastroenteritis, less likely ischemic colitis or ulcerative colitis. She does have a white count in the setting of acute onset after going out to dinner, eating at a buffet. Plan: We will admit her as an inpatient, continue her on IV fluids and antibiotics and repeat her blood work in the morning. Continue her on Flagyl and Cipro. 2. Acute on chronic kidney injury. Suspect this is hypovolemia and prerenal azotemia from her nausea, vomiting and diarrhea. Plan: We will continue her fluids, renally dose her meds and hold her lisinopril for now. 3. GI bleeding. Assessment: Likely related to infectious gastroenteritis and not a separate entity, could be a diverticular bleed as well. Plan: We will repeat an H and H now. She is asymptomatic currently and will follow up on a repeat H and H. CHRONIC MEDICAL PROBLEMS: 1. Gout. Continue allopurinol. 2. Urinary symptoms. Continue her Myrbetriq and her oxybutynin. 3. Neuropathy. Continue her gabapentin. 4. Depression: Continue her Lexapro. 5. Gastroesophageal reflux disease. Continue omeprazole and place her on Nexium. 6. FEN: Place the patient on clear liquid diet, advance as tolerated. 7. DVT prophylaxis: The patient with GI bleed. We will place her on SCDs. 8. Code status: Full code. TIME SPENT: Greater than 50 minutes was spent doing the history and physical, more than half the time spent in direct patient contact. [id number]/[facility] [place] #: [id number] SARKIS
[2018-03-08] MEDS: Calcium Citrate TAB* 200 MG PO SCH (20:43)
[2018-03-08] MEDS: Gabapentin CAP(*) 300 MG PO SCH (20:43)
[2018-03-08] MEDS ORDERED: Ondansetron 40 MG VIAL* 2 MG/ML 20 ML VIAL IV PRN (21:00)
[2018-03-08] MEDS: metroNIDAZOLE IV 500 MG/100ML* 500 MG/100 ML BAG IVPB SCH (22:19)
[2018-03-08] MEDS: Al Hydrox/Mg Hydrox/Simet LIQ* 30 ML UDC PO PRN (22:19)
[2018-03-09] MEDS: Ciprofloxacin 400MG IVPREMIX(* 400 MG/200 ML BAG IVPB SCH ×2 (00:56→13:00)
--- NOTE | 2018-03-09 04:47 | PN ---
Hospitalist Progress Note Date of Service: 03/09/18 Informed by RN that sats have been dropping while pt is asleep but goes up to > 90% with 2L O2 NC. Advise to keep O2 while asleep and to perform nocturnal O2 sat monitoring for suspicion of HIRAM. Consider formal sleep study as outpt. Defer with rounding team in AM.
[2018-03-09] MEDS: Omeprazole CAP* 20 MG PO SCH (06:11)
[2018-03-09] MEDS: metroNIDAZOLE IV 500 MG/100ML* 500 MG/100 ML BAG IVPB SCH ×2 (06:11→14:29)
[2018-03-09 08:32] LABS: ABS Basophils 0.1 10^3/ul (0-0.2); ABS Eosinophils 0.2 10^3/ul (0-0.6); ABS Lymphocytes 1.6 10^3/ul (1.0-4.8); ABS Monocytes 0.8 10^3/ul (0-0.8); ABS Neutrophils 10.5 10^3/ul (1.5-7.7); ABS Nucleated RBC 0 10^3/ul; Eosinophil % 1.2 % (0-6); Hematocrit 40 % (35-47); Lymphocyte % 12.4 % (25-47); Mean Corpuscular HGB Conc 33 g/dl (31-36); Mean Corpuscular Hemoglobin 29 pg (27-31); Mean Corpuscular Volume 89 fL (80-97); Mean Platelet Volume 8.7 um3 (7.4-10.4); Nucleated Red Blood Cells % 0; Platelet Count 238 10^3/ul (150-450); Red Blood Count 4.49 10^6/ul (4.0-5.4); Red Cell Distribution Width 16 % (10.5-15); White Blood Count 13.2 10^3/ul (3.5-10.8)
[2018-03-09 08:51] LABS: EGFR Non-African American 46.9 (>60)
[2018-03-09] MEDS: METHYLCOBALAMINE SL SCH (08:55)
[2018-03-09] MEDS: NF:Mirabegron (NF) 25 MG TAB PO SCH (08:55)
[2018-03-09] MEDS: Gabapentin CAP(*) 300 MG PO SCH ×3 (09:02→21:13)
[2018-03-09] MEDS: Calcium Citrate TAB* 200 MG PO SCH ×2 (09:02→21:14)
[2018-03-09] MEDS: Oxybutynin XL TAB* 5 MG PO SCH (09:02)
[2018-03-09] MEDS: CMC:Escitalopram (NF) 10 MG TAB PO SCH (09:03)
[2018-03-09] MEDS: Allopurinol TAB* 300 MG PO SCH (09:03)
[2018-03-09] MEDS: Al Hydrox/Mg Hydrox/Simet LIQ* 30 ML UDC PO PRN (10:09)
[2018-03-09] MEDS: Acetaminophen TAB* 325 MG PO PRN (13:53)
[2018-03-09] MEDS: metroNIDAZOLE TAB* 250 MG PO SCH ×2 (15:43→21:31)
--- NOTE | 2018-03-09 19:08 | PN ---
Subjective Date of Service: 03/09/18 Interval History: Pt without BM. abdominal cramps subsided. diet advanced. did start to get some cramping again hgb stable 13.0 walking halls. overall improved. Objective Active Medications: Acetaminophen (Tylenol Tab*) 650 mg PO Q4H PRN PRN Reason: FEVER/PAIN Last Admin: 03/09/18 13:53 Dose: 650 mg Al Hydrox/Mg Hydrox/Simethicone (Maalox Plus*) 30 ml PO Q6H PRN PRN Reason: INDIGESTION Last Admin: 03/09/18 10:09 Dose: 30 ml Allopurinol (Zyloprim Tab*) 300 mg PO DAILY [facility] Last Admin: 03/09/18 09:03 Dose: 300 mg Calcium Citrate (Citracal Tab*) 200 mg PO BID [facility] Last Admin: 03/09/18 09:02 Dose: 200 mg Ciprofloxacin (Cipro Tab*) 500 mg PO Q12H [facility] Escitalopram Oxalate (Lexapro (Nf)) 10 mg PO QAM [facility] Last Admin: 03/09/18 09:03 Dose: 10 mg Gabapentin (Neurontin Cap(*)) 300 mg PO TID [facility] Last Admin: 03/09/18 13:52 Dose: 300 mg Metronidazole (Flagyl Tab*) 500 mg PO TID [facility] Last Admin: 03/09/18 15:43 Dose: 500 mg Mirabegron (Myrbetriq (Nf)) 50 mg PO DAILY [facility] Last Admin: 03/09/18 08:55 Dose: Not Given Natural Dietary Supplement (B-12) 5,000 mcg SL DAILY [facility] Last Admin: 03/09/18 08:55 Dose: Not Given Omeprazole (Prilosec Cap*) 20 mg PO 0600 [facility] Last Admin: 03/09/18 06:11 Dose: 20 mg Ondansetron HCl (Zofran 40 Mg Vial*) 4 mg IV Q4H PRN PRN Reason: NAUSEA/VOMITING Last Admin: 03/08/18 20:37 Dose: 4 mg Oxybutynin Chloride (Ditropan Xl Tab*) 15 mg PO DAILY [facility] Last Admin: 03/09/18 09:02 Dose: 15 mg Oxycodone/Acetaminophen (Percocet 5/325 Tab*) 1 tab PO Q4H PRN PRN Reason: Pain Last Admin: 03/08/18 20:43 Dose: 1 tab Vital Signs - 8 hr 03/09/18 03/09/18 03/09/18 11:12 11:13 13:52 Temperature 97.9 F Pulse Rate 84 Respiratory 18 17 Rate Blood Pressure 81/61 108/63 (mmHg) O2 Sat by Pulse 90 Oximetry 03/09/18 03/09/18 15:50 15:52 Temperature 98.4 F Pulse Rate 92 Respiratory 20 18 Rate Blood Pressure 103/45 (mmHg) O2 Sat by Pulse 94 Oximetry Oxygen Devices in Use Now: None Appearance: NAD. Ears/Nose/Mouth/Throat: NL Teeth, Lips, Gums, Mucous Membranes Moist Neck: NL Appearance and Movements; NL JVP Respiratory: Symmetrical Chest Expansion and Respiratory Effort, Clear to Auscultation Cardiovascular: NL Sounds; No Murmurs; No JVD, RRR Abdominal: NL Sounds; No Tenderness; No Distention Extremities: No Edema Skin: No Rash or Ulcers, No Nodules or Sclerosis Neurological: Alert and Oriented x 3, NL Sensation Nutrition: Taking PO's Result Diagrams: 03/09/18 08:19 03/09/18 08:19 Additional Lab and Data: Laboratory Results - last 24 hr 03/09/18 03/09/18 08:19 08:19 WBC 13.2 H RBC 4.49 Hgb 13.0 Hct 40 MCV 89 MCH 29 MCHC 33 RDW 16 H Plt Count 238 MPV 8.7 Neut % (Auto) 79.3 Lymph % (Auto) 12.4 L Day % (Auto) 6.0 Eos % (Auto) 1.2 Baso % (Auto) 1.1 Absolute Neuts (auto) 10.5 H Absolute Lymphs (auto) 1.6 Absolute Monos (auto) 0.8 Absolute Eos (auto) 0.2 Absolute Basos (auto) 0.1 Absolute Nucleated RBC 0 Nucleated RBC % 0 Sodium 140 Potassium 4.5 Chloride 104 Carbon Dioxide 29 Anion Gap 7 BUN 14 Creatinine 1.14 H Est GFR ( Amer) 60.3 Est GFR (Non-Af Amer) 46.9 BUN/Creatinine Ratio 12.3 Glucose 119 H Calcium 9.6 Assess/Plan/Problems-Billing Assessment: 72 year old PMH morbid obesity, gout, GERD p/w Nausea, vomiting, bloody BMs almost immediately after eating out at a [employer] restaurant. Concerned for infectious colitis. - Patient Problems (1) GI bleed Current Visit: No Status: Acute Priority: High Onset Date: 07/18/14 Code (s): K92.2 - GASTROINTESTINAL HEMORRHAGE, UNSPECIFIED SNOMED Code(s): 15185404 Comment: no BMs since admission f/u shiga toxin, stool Cx and stool lactoferran. hgb stable. (2) Abdominal pain Current Visit: No Status: Acute Priority: High Onset Date: 07/18/14 Code (s): R10.9 - UNSPECIFIED ABDOMINAL PAIN SNOMED Code(s): 58845134 Comment: some cramping. advanced diet. f/u stool studies. not consistent with ischemic colitis. (3) Anxiety Current Visit: No Status: Chronic Code(s): F41.9 - ANXIETY DISORDER, UNSPECIFIED SNOMED Code(s): 66018637 (4) Depression Current Visit: No Status: Chronic Code(s): F32.9 - MAJOR DEPRESSIVE DISORDER , SINGLE EPISODE, UNSPECIFIED SNOMED Code(s): 17904394 Comment: continue lexapro. (5) GERD (gastroesophageal reflux disease) Current Visit: No Status: Chronic Code(s): K21.9 - GASTRO-ESOPHAGEAL REFLUX DISEASE WITHOUT ESOPHAGITIS SNOMED Code(s): 584672562 Comment: no no meds (6) Hypertension Current Visit: No Status: Chronic Code(s): I10 - ESSENTIAL (PRIMARY) HYPERTENSION SNOMED Code(s): 34600481 Comment: relative hypotension, holding lisinopril 10mg in setting of GIB.
--- NOTE | 2018-03-09 21:25 | PN ---
Hospitalist Progress Note Date of Service: 03/09/18 Called by GRACY sadler to inform me that pt is refusing to take her antibiotics because it will "kill off her gut bacteria." Reviewed meds and labs. Pt has colitis thought to be infectious and white count has improved although no definitive diagnosis at this time. Advised to inform pt to continue antibiotic regimen until more data precludes using them. However, pt's autonomy should also be respected and will defer if patient still refuses to take meds despite the risks of exacerbation of possible infectious colitis.
[2018-03-09] MEDS: Ciprofloxacin TAB* 500 MG PO SCH (23:24)
[2018-03-10] MEDS: Acetaminophen TAB* 325 MG PO PRN ×2 (04:19→11:29)
[2018-03-10] MEDS: Omeprazole CAP* 20 MG PO SCH (05:40)
[2018-03-10] MEDS: METHYLCOBALAMINE SL SCH (08:05)
[2018-03-10] MEDS: NF:Mirabegron (NF) 25 MG TAB PO SCH (08:06)
[2018-03-10] MEDS: Allopurinol TAB* 300 MG PO SCH (08:07)
[2018-03-10] MEDS: Gabapentin CAP(*) 300 MG PO SCH ×2 (08:07→14:30)
[2018-03-10] MEDS: Calcium Citrate TAB* 200 MG PO SCH (08:07)
[2018-03-10] MEDS: Oxybutynin XL TAB* 5 MG PO SCH (08:07)
[2018-03-10] MEDS: CMC:Escitalopram (NF) 10 MG TAB PO SCH (08:07)
[2018-03-10] MEDS: metroNIDAZOLE TAB* 250 MG PO SCH ×2 (08:07→14:31)
[2018-03-10] MEDS ORDERED: Docusate CAP* 100 MG PO SCH (09:00)
[2018-03-10 09:19] LABS: ABS Basophils 0.1 10^3/ul (0-0.2); ABS Eosinophils 0.2 10^3/ul (0-0.6); ABS Monocytes 0.7 10^3/ul (0-0.8); ABS Neutrophils 7.2 10^3/ul (1.5-7.7); ABS Nucleated RBC 0 10^3/ul; Hematocrit 38 % (35-47); Hemoglobin 12.4 g/dl (12.0-16.0); Lymphocyte % 19.8 % (25-47); Mean Corpuscular HGB Conc 33 g/dl (31-36); Mean Corpuscular Hemoglobin 29 pg (27-31); Mean Corpuscular Volume 88 fL (80-97); Mean Platelet Volume 9.2 um3 (7.4-10.4); Nucleated Red Blood Cells % 0.1; Platelet Count 245 10^3/ul (150-450); Red Blood Count 4.28 10^6/ul (4.0-5.4); Red Cell Distribution Width 16 % (10.5-15); White Blood Count 10.3 10^3/ul (3.5-10.8)
[2018-03-10 09:46] LABS: EGFR Non-African American 47.3 (>60)
[2018-03-10] MEDS: Ciprofloxacin TAB* 500 MG PO SCH (11:29)
[2018-03-10] MEDS ORDERED: Magnesium CITRATE* 300 ML BTL PO ONE (11:49)
[2018-03-10] MEDS ORDERED: Bisacodyl SUPP* 10 MG SUPP PR ONE (11:50)
[2018-03-10] MEDS ORDERED: Senna TAB PO PRN (11:51)
[2018-03-10 16:25] VITALS: BP 126/58
--- NOTE | 2018-03-11 13:18 | DS ---
DISCHARGE SUMMARY: DATE OF ADMISSION: 03/08/18 DATE OF DISCHARGE: 03/10/18 ADMITTING PROVIDER: Emilee Rivas MD PRIMARY CARE PROVIDER: Dallas Cornelius MD ATTENDING PHYSICIAN ON DISCHARGE: Ubaldo Shi MD CHIEF COMPLAINT: Abdominal pain, nausea, dry retching, bright red blood per rectum. PRINCIPAL DIAGNOSIS: Infectious colitis. HISTORY OF PRESENT ILLNESS: Radha Hardwick is a 72-year-old female with a past medical history of vertical gastric band stenosis, status post dilatation, upper GI bleed, gastric stapling, morbid obesity, GERD, hypertension, hyperlipidemia, gout. She was in her usual state of health when she went to a restaurant and had Russian food, a buffet and by the time she was walking out the door had abdominal pain, cramping, nausea. She would develop bloody stools with bright red blood, was up all night in the bathroom. Please see H and P of Dr. Emilee Rivas for full details. She denied any NSAID use. No lightheadedness. No chest pain or shortness of breath. She had had a colonoscopy 2 months prior to admission which was normal. In the emergency room , she was given normal saline, Cipro, Flagyl and referred to the hospitalist service for admission. She had a CT of abdomen and pelvis without contrast, which showed mild pericolonic inflammatory change at the distal descending and proximal sigmoid segment as well as featureless morphology of the colon, most suspicious for potential ulcerative colitis. In the acute setting, the differential would include infectious colitis as well as potential ischemic colitis. The patient was initially with white count of 17,000, hemoglobin of 13.7. She had no further bloody bowel movements while she was in the hospital. She would eventually have a bowel movement again on day of discharge, which was fecal occult negative. White count trended down to 10,000, hemoglobin stable in the 12 to 13 range. She was without any nausea or vomiting. She was initially on IV Cipro, Flagyl. Lost her IV access and was transitioned to p.o. antibiotics without complication. She had some abdominal cramping, which improved after bowel regimen, eventually resulted in bowel movement which was brown and semi-formed. The patient will be continued on Cipro, Flagyl p.o. and follow up on stool cultures as an outpatient with Dr. Cornelius. She notably did have evidence of desaturations at night and had overnight sleep oximetry study, which showed multiple desaturations. Did obtain referral to Dr. Phillip for further outpatient sleep study and likely will need CPAP initiation. Other lab work included lipase less than 10, lactic acid of 1.3, CRP of 32. DISCHARGE MEDICATIONS: Include: 1. Allopurinol 300 mg p.o. daily. 2. Lexapro 10 mg p.o. q.a.m. 3. Gabapentin 300 mg p.o. t.i.d. 4. Methylcobalamin 5000 mcg sublingual daily. 5. Myrbetriq 50 mg p.o. daily. 6. Oxybutynin 50 mg p.o. daily. 7. Calcium citrate 500 mg p.o. b.i.d. 8. Ciprofloxacin 500 mg p.o. q.12 hours for 10 days. 9. Docusate 100 mg p.o. b.i.d. 10. Nexium 20 mg p.o. q.a.m. 11. Probiotic 1 capsule p.o. daily. 12. Lisinopril 10 mg p.o. q.a.m. 13. Flagyl 500 mg p.o. t.i.d. for 10 days. ACTIVITY LEVEL: No restrictions. DIET: Heart healthy. FOLLOWUP: Please follow up with Dr. Dallas Cornelius within 3 to 5 days of discharge and Dr. Radha Phillip for outpatient CPAP initiation and titration and consideration for sleep study within 2 to 4 weeks of discharge. TIME SPENT: On discharge, 35 minutes. [id number]/[facility] #: [id number] [facility]
== END 2018-03-10 19:05 | disposition home or self-care (01) ==
LOC: ED 08:38 → INTOOBSV 14:31 → MED 14:31
PROVIDERS: ADMIT Pediatrics; ATTEND Internal Medicine
DX: A09 Infectious gastroenteritis and colitis, unspecified (principal); K62.5 Hemorrhage of anus and rectum; R10.9 Unspecified abdominal pain; R11.0 Nausea
CPT/HCPCS: 36415; 74176; 80048; 80053; 81003; 82270; 83605; 83630; 83690; 85014; 85018; 85025; 85610; 85652; 85730; 86140; 86850; 86900; 86901; 87045; 87046; 87899; 96365; 96366; 99284; A9270-GY; G0378; J0744; J3490

== ENCOUNTER → 2018-11-13 06:48 | Day surgery (SDC) | payer MEDICARE, OTHER ==
[~2018-11-13 06:48] MED LIST changes: -Buffered Lidocaine 0.9% SYRIN* 5 ML/SYR SYRINGE INTRADERM ONE; +Clopidogrel TAB* 300 MG ONE; -Dexamethasone IV* 4 MG/ML 1 ML (4 MG) IV SLOW PU ONE; -Famotidine IV* 10 MG/ML 2 ML (20 mg) IV ONE; +Heparin 2 UNITS/ML IVPREMIX* 2,000 ML IV ONE; +Heparin(*) 1000 UNIT/ML 10 ML VIAL CATH LAB IV ONE; +Iodixanol 320 (CONTRAST) 100 ML SDV ONE; +LORazepam TAB(*) 1 MG ONE; +Lidocaine 1% INJ* 10 MG/ML 30 ML SDV ONE; +Midazolam* 1 MG/ML 10 ML VIAL (10 MG) ONE; +Ondansetron INJ* 2 MG/ML VIAL ONE; +fentaNYL* 50 MCG/ML 2 ML VIAL (100 MCG VIAL) ONE; +nitroGLYCERIN DRIP* 25,000 MCG/250 ML BTL ONE
[2018-11-13 14:50] VITALS: BP 94/52
--- NOTE | 2018-11-13 15:05 | PN ---
Progress Note - Progress Note Date of Service: 11/13/18 SOAP: Subjective: Episdoe of nausea is now resovled following 4 mg IV Zofran. Patient denies any pain either at the right common femoral arteriotomy site or elsewhere. Objective: Selected Entries 11/13/18 11/13/18 11/13/18 13:05 13:20 13:35 Heart Rate 73 71 71 Respiratory 20 17 20 Rate Blood Pressure 102/71 108/55 132/65 (mmHg) Blood Pressure 82 73 78 Mean 11/13/18 11/13/18 13:50 14:05 Heart Rate 76 79 Respiratory 24 19 Rate Blood Pressure 123/74 94/52 (mmHg) Blood Pressure 92 61 Mean NAD, AAO x 3 Partially sitting up eating lunch No abdominal pelvic pain with compression Right common femoral arteriotomy site is soft and nontender to monitor. The dressing is clean, dry and intact. 2+ pulses are palpated the bilateral common femoral arteries. 1+ pulses palpated at the left popliteal artery and posterior tibial artery. Left dorsalis pedis pulse located by Doppler. The left foot is warm to touch. Motor function is grossly intact in the left lower extremity. Sensation to light touch in the left lower extremity and left foot is preserved. Assessment: 73-year-old woman status post pelvic and left lower extremity arteriography followed by catheter and wire revascularization and balloon angioplasty of the left superficial femoral artery. The right common femoral arteriotomy was successfully closed with a percutaneous Mynx closure device. Plan: 1. The patient received a 300 mg by mouth dose of Plavix and well continue to take Plavix 75 mg by mouth daily 3 months. The patient was advised to be vigilant for any signs of GI bleeding such as black tarry stools or new onset shortness of breath or dizziness. The patient experiences a the symptoms that she was advised to promptly call the interventional radiology clinic or her PCP ; or otherwise go to the emergency department. 2. Follow-up will include an interventional radiology clinic RN call Friday, November 16, 2018. 3. Routine 1 month follow-up will include [facility] and Interventional Radiology clinic visit.
== END | disposition home or self-care (01) ==
LOC: CHICATH 06:48
PROVIDERS: ATTEND Radiology Diagnostic Radiology
DX: I70.212 Atherosclerosis of native arteries of extremities with intermittent claudication, left leg (principal); Z68.41 Body mass index [BMI] 40.0-44.9, adult; G47.33 Obstructive sleep apnea (adult) (pediatric); R07.9 Chest pain, unspecified; E78.5 Hyperlipidemia, unspecified; R94.31 Abnormal electrocardiogram [ECG] [EKG]; I10 Essential (primary) hypertension; E78.00 Pure hypercholesterolemia, unspecified; K21.9 Gastro-esophageal reflux disease without esophagitis; I34.0 Nonrheumatic mitral (valve) insufficiency; Z87.891 Personal history of nicotine dependence
CPT/HCPCS: 76937; 85347; 99156; 99157; A9270-GY; C1725; C1760; C1769; C1887; C1894; J1644; J2250; J2405; J3010

== ENCOUNTER 2019-06-23 15:29 | Observation (INO) | payer MEDICARE, OTHER ==
--- OUTSIDE RECORDS SUMMARY | 2019-06-23 15:55 | XMS REPORT | Continuity of Care Document ---
:1945 External Reference #:[id number] Author Name Covert, Nisreen Care Team Providers Name Role Phone Dallas Cornelius MD Primary Care Physician Unavailable Payers Date Identification Numbers Payment Provider Subscriber Expires: 2018 Policy Number: [id number] [facility] Joshua Claudio PayID: [id number] [address] [address] [place] [address] Policy Number: [id number] Medicare Radha Hardwick PayID: [id number] [address] [place] [address] Effective: 2018 Policy Number: [id number] [facility] Radha Hardwick PayID: [id number] [address] [place] [address] Problems Active Problems Provider Date Electrocardiogram abnormal Ramesh Schwartz M.D. Onset: 07/01/2012 Benign essential hypertension Ramesh Schwartz M.D. Onset: 07/01/2012 Hyperlipidemia Ramesh Schwartz M.D. Onset: 07/01/2012 Chest pain Ramesh Schwartz M.D. Onset: 07/01/2012 Obstructive sleep apnea syndrome Kianna Ryan DNP, RN, Onset: 07/28/2018 [employer] Body mass index 40+ - severely obese Kianna Ryan DNP, RN, Onset: 2017 [employer] Hypersomnia Kianna Ryan DNP, RN, Onset: 07/28/2018 [employer] Varicose veins of lower extremity Aristeo Valles M.D. Onset: 12/02/2018 Intermittent claudication due to Aristeo Valles M.D. 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 Tobacco Use Start: Unknown End: Former Cigarette Smoker 10 years Unknown 1 Pack Daily Cigarette Use Quit - Age 30 Smoking Status Reviewed: 04/27/19 Former Cigarette Smoker 10 years 1 Pack Daily Smokeless Tobacco Never Used Smokeless Tobacco ETOH Use Denies alcohol use Tobacco Use Start: Unknown End: Patient is a former pt smoked 1 pack qd Unknown smoker for 10 years Recreational Drug Use Regularly uses Marijuana Exercise Type/Frequency Exercises sporadically Allergies, Adverse Reactions, Alerts Active Allergies Reaction Severity Comments Date Morphine hallucinations 02/06/2006 NSAIDs instructed to avoid/hx of 08/06/2016 ulcers Statins Severe joint stiffness Severe 10/28/2018 Medications Active Medications SIG Qnty Indications Ordering Provider Date Wrist Splint use nightly to 2units G56.03 Uziel Burnham, 04/23/2018 [facility] help with Hermelindo numbness and tingling in the right and left hand g560.03, carpal tunnel Multi For Her one tab daily Unknown Capsules Calcium Citrate 500mg Unknown 200mg Tablets Hyoscyamine Sulfate 1 tab by mouth 90tabs Asya Red NP ER every 12 hours as 0.375mg Tablets ER needed 12HR Vitamin B-12 (2500mg)once Unknown 3000mcg daily Tablets Sub Clopidogrel Bisulfate 1 by mouth every Unknown day 75mg Tablets Pantoprazole Sodium 1 by mouth every Unknown day 40mg Tablets DR Alprazolam one by mouth up Unknown 0.25mg to three times Tablets daily as needed for anxiety Oxybutynin Chloride 1 by mouth one Unknown ER time per day 15mg Tablets ER 24HR Allopurinol 1 by mouth every Unknown 300mg day Tablets Myrbetriq 1 by mouth every Unknown 50mg Tablets day ER 24HR D3 Maximum Strength take one Unknown capsule/tablet 5000Unit Capsules daily by mouth Lexapro 1 by mouth every Unknown 10mg Tablets day Probiotic 1 by mouth every Unknown Capsules day Gabapentin 1 by mouth three Unknown 300mg times a day Capsules Lisinopril 1 by mouth every Unknown 20mg Tablets day History Medications Gemfibrozil one po bid 180tabs E78.1 Ramesh STereza 04/27/2019 - 600mg eHrmelindo Schwartz 05/07/2019 Tablets Compression wear as directed 1Pair Dagoberto Mcgregor, 11/10/2017 - Stockings M.DTereza 07/27/2018 Misc Naproxen 1 by mouth twice 30tabs M10.041 Dagoberto Mcgregor, 09/25/2017 - 375mg a day M.DTereza 04/23/2018 Tablets Percocet take 1-2 tabs by 40tabs Dagoberto Mcgregor, 05/30/2017 - 5-325mg mouth q4-6 hours M.DTereza 07/06/2017 Tablets as needed pain Celexa one tablet qd po 30tabs Ramesh S. 02/05/2006 - 50mg Tablets Hermelindo Schwartz 05/22/2011 Zetia 1 PO qd 90tabs Ramesh S. 02/05/2006 - 10mg Tablets Hermelindo Schwartz 05/22/2011 Celebrex One Tablet bid 30caps Ramesh S. 02/05/2006 - 200mg PO Hermelindo Schwartz 05/22/2011 Capsules Nexium 1 PO bid- takes Retatanancy STereza 02/05/2006 - 40mg Capsules 20mg daily Hermelindo Schwartz 08/07/2016 Hair Skin Nails Unknown - Unknown Capsules Citracal +D3 take one Unknown - capsule/tablet Unknown [id number]-mg-Uni by mouth twice t Chewtabs daily Calcium 600 + Unknown - Minerals 04/23/2018 [id number] Tablets Nexium 1 by mouth every Unknown - 20mg Capsules day 11/28/2018 Acetaminophen Extra 2 tab by mouth Unknown - Strength prn 07/27/2018 500mg Tablets Methyl B-12 1 po daily Unknown - 500mg Unknown Subliqual Oxybutynin Chloride 1 by mouth every Unknown - ER day 07/15/2017 10mg Tablets ER 24HR Multi Vitamin Daily daily Unknown - Unknown Carafate 2 teaspoons (10 Unknown - 1GM/10ML ml) by mouth 08/05/2016 Suspension three times daily Gabapentin Three times Unknown - 100mg daily 07/28/2014 Capsules Gabapentin 1 po tid 90caps Unknown - 300mg 07/26/2014 Capsules Xanax 1/2 to 1 as 40tabs Unknown - 0.5mg Tablets needed up to Unknown 3x/d Gelnique as directed Unknown - 10% Gel 08/05/2016 Lisinopril 1 po qd 90tabs Unknown - 20mg 07/26/2014 Tablets Niaspan 1tab pm 30tabs Unknown - 500mg Tablets 07/26/2014 ER Mirtazapine 1 by mouth every 30tabs Unknown - 15mg night 08/05/2016 Tablets Vital Signs Date Vital Result Comment 04/28/2019 10:54am Height 61 inches 5'1" Weight 251.50 lb Heart Rate 90 /min left radial BP Systolic Sitting 130 mmHg ule lg cuff BP Diastolic Sitting 80 mmHg ule lg cuff BMI (Body Mass Index) 47.5 kg/m2 04/27/2019 1:12pm Height 61 inches 5'1" Weight 250.25 lb with shoes Heart Rate 88 /min left radial BP Systolic Sitting 130 mmHg ule, large cuff BP Diastolic Sitting 88 mmHg ule, large cuff BP Systolic Standing 138 mmHg ule, large cuff BP Diastolic Standing 88 mmHg ule, large cuff BMI (Body Mass Index) 47.3 kg/m2 Ejection Fraction 55-60% echo 05/24/2011 04/19/2019 3:15pm Height 61 inches 5'1" Weight 245.00 lb Heart Rate 90 /min BP Systolic Sitting 150 mmHg BP Diastolic Sitting 84 mmHg Respiratory Rate 16 /min Body Temperature 97.3 F BMI (Body Mass Index) 46.3 kg/m2 02/19/2019 3:39pm Height 61 inches 5'1" Heart Rate 104 /min BP Systolic 134 mmHg BP Diastolic 84 mmHg O2 % BldC Oximetry 96 % 12/02/2018 9:40am Height 61 inches 5'1" Heart Rate 94 /min BP Systolic Sitting 126 mmHg BP Diastolic Sitting 84 mmHg Respiratory Rate 16 /min 10/28/2018 10:52am Height 61 inches 5'1" Weight 253.00 lb Heart Rate 80 /min BP Systolic Sitting 122 mmHg BP Diastolic Sitting 84 mmHg Respiratory Rate 18 /min BMI (Body Mass Index) 47.8 kg/m2 10/14/2018 2:17pm Height 61 inches 5'1" Weight 240.00 lb Pt declined, reported wt Heart Rate 104 /min BP Systolic Sitting 134 mmHg Lue large cuff BP Diastolic Sitting 80 mmHg Lue large cuff Respiratory Rate 18 /min O2 % BldC Oximetry 95 % On Ra BMI (Body Mass Index) 45.3 kg/m2 07/28/2018 1:28pm Height 61 inches 5'1" Heart Rate 84 /min BP Systolic Sitting 144 mmHg Rue large cuff BP Diastolic Sitting 84 mmHg Rue large cuff Respiratory Rate 16 /min O2 % BldC Oximetry 95 % On Ra 05/13/2018 11:23am Height 61 inches 5'1" Weight 245.00 lb Heart Rate 86 /min BP Systolic 158 mmHg BP Diastolic 94 mmHg Respiratory Rate 18 /min Body Temperature 98.8 F BMI (Body Mass Index) 46.3 kg/m2 05/11/2018 2:53pm Height 61 inches 5'1" Heart Rate 100 /min BP Systolic 124 mmHg BP Diastolic 74 mmHg Respiratory Rate 14 /min Pain Level 0 04/23/2018 1:02pm Height 61 inches 5'1" Heart Rate 87 /min BP Systolic Sitting 125 mmHg BP Diastolic Sitting 77 mmHg Respiratory Rate 14 /min Pain Level 2 04/20/2018 10:47am Height 61 inches 5'1" Weight 240.00 lb Per pt, refused weight Heart Rate 96 /min BP Systolic Sitting 132 mmHg Lue large cuff BP Diastolic Sitting 82 mmHg Lue large cuff Respiratory Rate 16 /min O2 % BldC Oximetry 95 % On Ra BMI (Body Mass Index) 45.3 kg/m2 Neck Circumference in inches 16.25 03/19/2018 4:10pm Height 61 inches 5'1" Heart Rate 93 /min BP Systolic 118 mmHg BP Diastolic 84 mmHg O2 % BldC Oximetry 95 % 09/25/2017 10:21am Height 61 inches 5'1" Weight 249.00 lb BP Systolic 148 mmHg BP Diastolic 90 mmHg Respiratory Rate 18 /min Body Temperature 97.2 F Pain Level 6 BMI (Body Mass Index) 47.0 kg/m2 08/05/2017 10:16am Height 61 inches 5'1" Weight 249.00 lb Heart Rate 92 /min BP Systolic 132 mmHg BP Diastolic 82 mmHg Body Temperature 97.5 F Pain Level 0 BMI (Body Mass Index) 47.0 kg/m2 07/24/2017 9:58am Height 61 inches 5'1" Weight 249.00 lb BP Systolic 110 mmHg BP Diastolic 78 mmHg Body Temperature 97.0 F Pain Level 0 BMI (Body Mass Index) 47.0 kg/m2 07/15/2017 10:13am Height 61 inches 5'1" Weight 249.00 lb Respiratory Rate 16 /min Body Temperature 97.8 F Pain Level 4 BMI (Body Mass Index) 47.0 kg/m2 06/24/2017 11:31am Height 61 inches 5'1" Weight 249.00 lb BP Systolic 140 mmHg BP Diastolic 76 mmHg Respiratory Rate 20 /min Pain Level 7 BMI (Body Mass Index) 47.0 kg/m2 06/13/2017 10:21am Height 61 inches 5'1" Weight 249.00 lb Heart Rate 80 /min Respiratory Rate 17 /min Body Temperature 97.5 F Pain Level 5 BMI (Body Mass Index) 47.0 kg/m2 05/13/2017 11:50am Height 61 inches 5'1" Weight 249.00 lb Heart Rate 81 /min BP Systolic 157 mmHg BP Diastolic 82 mmHg Body Temperature 97.5 F BMI (Body Mass Index) 47.0 kg/m2 04/29/2017 11:11am Height 61 inches 5'1" Weight 249.00 lb BP Systolic 134 mmHg BP Diastolic 80 mmHg Respiratory Rate 20 /min Body Temperature 98.1 F Pain Level 7 BMI (Body Mass Index) 47.0 kg/m2 03/21/2017 1:08pm Height 61 inches 5'1" Weight 249.00 lb BP Systolic 115 mmHg BP Diastolic 79 mmHg Body Temperature 98.1 F Pain Level 0 BMI (Body Mass Index) 47.0 kg/m2 02/13/2017 11:13am Height 61 inches 5'1" Weight 249.00 lb Heart Rate 58 /min BP Systolic 125 mmHg BP Diastolic 80 mmHg Respiratory Rate 16 /min Body Temperature 98.0 F BMI (Body Mass Index) 47.0 kg/m2 12/27/2016 9:50am Height 61 inches 5'1" Weight 249.00 lb Heart Rate 100 /min BP Systolic 130 mmHg BP Diastolic 84 mmHg Respiratory Rate 24 /min Pain Level 0 BMI (Body Mass Index) 47.0 kg/m2 10/18/2016 12:07pm Height 61 inches 5'1" Weight 249.00 lb Pain Level 1 BMI (Body Mass Index) 47.0 kg/m2 09/06/2016 11:09am Height 61 inches 5'1" Weight 249.00 lb Respiratory Rate 17 /min Pain Level 8 BMI (Body Mass Index) 47.0 kg/m2 08/06/2016 1:12pm Height 60.50 inches 5'0.50" Weight 249.00 lb Heart Rate 97 /min BP Systolic Sitting 130 mmHg BP Diastolic Sitting 73 mmHg Pain Level 6 BMI (Body Mass Index) 47.8 kg/m2 08/16/2014 3:27pm Height 62 inches 5'2" Weight 222.00 lb Heart Rate 88 /min BP Systolic 177 mmHg BP Diastolic 98 mmHg BMI (Body Mass Index) 40.6 kg/m2 07/28/2014 1:36pm Height 62 inches 5'2" Weight 218.00 lb Heart Rate 90 /min BP Systolic 135 mmHg BP Diastolic 78 mmHg BMI (Body Mass Index) 39.9 kg/m2 07/01/2012 3:26pm Height 62 inches 5'2" Weight 228.00 lb Heart Rate 84 /min BP Systolic 124 mmHg BP Diastolic 82 mmHg BMI (Body Mass Index) 41.7 kg/m2 07/17/2011 1:01pm Height 62 inches 5'2" Weight 229.00 lb Heart Rate 80 /min BP Systolic 136 mmHg BP Diastolic 84 mmHg BMI (Body Mass Index) 41.9 kg/m2 05/22/2011 3:44pm Height 62 inches 5'2" Weight 223.00 lb Heart Rate 80 /min BP Systolic Sitting 124 mmHg L BP Diastolic Sitting 72 mmHg L BMI (Body Mass Index) 40.8 kg/m2 02/06/2006 2:14pm Height 62 inches 5'2" Weight 234.00 lb Heart Rate 78 /min BP Systolic Sitting 120 mmHg R BP Diastolic Sitting 60 mmHg R BP Systolic Standing 120 mmHg R BP Diastolic Standing 70 mmHg R BMI (Body Mass Index) 42.8 kg/m2 Results Test Date Facility Test Result H/L Range Note Laboratory test [facility] Cytology SEE RESULT 1 finding [address] Non-Intelligence Intern BELOW [place], [place] [id number] [phone] Laboratory test [facility] H Pylori C Negative Negative 2, 3 finding [address] [place] [address] Test [phone] Laboratory test [facility] Lipase 21 U/L Normal 11.0 -82.0 finding [address] [place] [address] [phone] Amylase 29 U/L Normal 29-103 Comp Metabolic 02/19/2019 [facility] Sodium 136 mmol/L Normal 135-[address] [place], [place] [id number] [phone] Potassium 4.8 mmol/L Normal 3.5-5.0 Chloride 100 mmol/L Low 101-111 Co2 Carbon Dioxide 27 mmol/L Normal 22-32 Anion Gap 9 mmol/L Normal 2-11 Glucose 107 mg/dL High 70-100 Blood Urea Nitrogen 26 mg/dL High 6-24 Creatinine 1.14 mg/dL High 0.51-0.95 BUN/Creatinine Ratio 22.8 High 8-20 Calcium 10.9 mg/dL High 8.6-10.3 Total Protein 7.9 g/dL Normal 6.4-8.9 Albumin 4.6 g/dL Normal 3.2-5.2 Globulin 3.3 g/dL Normal 2-4 Albumin/Globulin Ratio 1.4 Normal 1-3 Total Bilirubin 1.00 mg/dL Normal 0.2-1.0 Alkaline Phosphatase 72 U/L Normal 34-104 Alt 17 U/L Normal 7-52 Ast 17 U/L Normal 13-39 Egfr Non- 46.7 >60 Egfr 56.5 >60 4 CBC No Diff 02/19/2019 [facility] White Blood 9.6 10^3/uL Normal 3.5-10.[address] [place] [address] [phone] Red Blood Count 5.04 10^6/uL High 3.70-4.87 Hemoglobin 14.5 g/dL Normal 12.0-16.0 Hematocrit 45 % Normal 35-47 Mean Corpuscular Volume 88 fL Normal 80-97 Mean Corpuscular Hemoglobin 29 pg Normal 27-31 Mean Corpuscular HGB Conc 33 g/dL Normal 31-36 Red Cell Distribution Width 16 % High 10.5-15 Platelet Count 323 10^3/uL Normal 150-450 Mean Platelet Volume 9.5 fL Normal 7.4-10.4 Laboratory test 11/13/2018 [facility] Poc Activated 192 seconds [address] [place] [address] [phone] Laboratory test 11/13/2018 [facility] Poc Activated 140 seconds [address] [place] [address] [phone] Basic Metabolic 11/10/2018 [facility] Sodium 138 mmol/L Normal 135-[address] [place] [address] [phone] Potassium 4.3 mmol/L Normal 3.5-5.0 Chloride 103 mmol/L Normal 101-111 Co2 Carbon Dioxide 27 mmol/L Normal 22-32 Anion Gap 8 mmol/L Normal 2-11 Glucose 104 mg/dL High 70-100 Blood Urea Nitrogen 20 mg/dL Normal 6-24 Creatinine 1.18 mg/dL High 0.51-0.95 BUN/Creatinine Ratio 16.9 Normal 8-20 Calcium 10.2 mg/dL Normal 8.6-10.3 Egfr Non- 44.9 >60 Egfr 54.3 >60 7 Laboratory 04/23/2018 [facility] TSH (Thyroid 1.46 Normal 0.34 -5.60 [address] Stim Horm) mcIU/[place] [address] [phone] Vitamin B6 04/23/2018 [facility] Pyridoxal 5 g/L 5-[address] [place] 5[place] [address] [phone] Pyridoxic Acid 6 g/L 3-30 10 Hla B27 04/23/2018 [facility] Hla B27 Negative [address] [place] [address] [phone] Hla B27 Interp See Comment 12 Connective Tissue 04/23/2018 [facility] Anti-Nuclear 0.3 U [address] [place] [address] [phone] Cyclic Citrullinated Peptide <15.6 U 14 Interpretation See Comment 15 Laboratory test 04/23/2018 [facility] Rheumatoid < 10 IU/mL Normal <15 [address] [place] [address] [phone] C Reactive Protein 11.88 mg/L High <8.01 17 Erythrocyte Sed Rate 40 mm/Hr Normal 0-40 18 Vitamin B12 04/23/2018 [facility] Vitamin B12 > 1450 High 180- [address] pg/[place] [address] [phone] Folic Acid (Folate) 18.18 ng/mL >3.99 20 Laboratory test 09/25/2017 [facility] Erythrocyte Sed 25 mm/Hr Normal 0-[address] [place] [address] [phone] Miscellaneous Test See Comment 21 Inr/Protime 05/26/2017 [facility] Inr 0.91 Normal 0.89-1.[address] [place] [address] [phone] Basic Metabolic 05/26/2017 [facility] Sodium 137 mmol/L Normal 133-[address] [place] [address] [phone] Potassium 4.4 mmol/L Normal 3.5-5.0 Chloride 103 mmol/L Normal 101-111 Co2 Carbon Dioxide 26 mmol/L Normal 22-32 Anion Gap 8 mmol/L Normal 2-11 Glucose 104 mg/dL High 70-100 Blood Urea Nitrogen 17 mg/dL Normal 6-24 Creatinine 1.01 mg/dL High 0.51-0.95 BUN/Creatinine Ratio 16.8 Normal 8-20 Calcium 9.6 mg/dL Normal 8.6-10.3 Egfr Non- 53.9 Normal >60 Egfr 69.3 Normal >60 22 Laboratory test 05/26/2017 [facility] Partial 29.9 Normal 26.0 -36.[address] [place] [address] Time PTT [phone] 1 SEE RESULT BELOW Name: RADHA HARDWICK : [address]: Maricruz Valdes MD Acct: [id number] Unit: [id number] AGE: 73 Location: Re04/26/19 SEX: F Status: REG REF SPEC: [id number] ESTEFANI: 04/23/19-[address] [facility] DR: Maricruz Valdes MD REQ: [id number] RECD: 04/25/19-1258 STATUS: HOLLIE LEE DR: Aristeo Valles MD _ ORDERED: FNA-IMG GUID BX, CYTO ADEQ-1ST P FINAL DIAGNOSIS Thyroid, left, ultrasound guided fine needle aspiration: --Benign thyroid nodule, colloid/hyperplastic type ([place] Class II). The specimen demonstrates abundant watery colloid, an abundant amount of benign appearing follicular epithelium arranged in uniform sheets, medium sized follicles and only occasional small groups. No features of papillary carcinoma are seen. In this clinical setting the risk of malignancy is less than 3%. Clinical management of this thyroid nodule should be based on clinical and radiographic features as well as the above. THYROID LEFT - US GUIDED LEFT THYOID NODULE FIME NEEDLE ASPIRATION CLINICAL HISTORY 2.6 x 1.9 x 1.7 cm left thyroid nodule. IMMEDIATE INTERPRETATION Pass 1 2-adequate CONTINUED ON NEXT PAGE DEPARTMENT OF PATHOLOGY, [address] [place] [address] Andres Bañuelos M.D. Director [facility] # [id number] RUN DATE: 04/27/19 [facility] LAB LIVE PAGE 2 Patient: CIERARADHA [id number] (Continued) GROSS DESCRIPTION (Continued) GROSS DESCRIPTION Ultrasound guided, fine needle aspiration x 2 with 3 alcohol fixed slide(s) Signed by and Reported on: Lala Huff MD 04/27/19 0828 END OF REPORT DEPARTMENT OF PATHOLOGY, [address] [place] [address] Andres Bañuelos M.D. Director [facility] # [id number] 2 [id number] Result indicates the absence of current Helicobacter pylori infection. Test Performed by: [facility] [address] [place] [address] 4 Because ethnic data is not always readily available, this report includes an eGFR for both -Americans and non- Americans. The National Kidney Disease Education Program (NKDEP) does not endorse the use of the MDRD equation for patients that are not between the ages of 18 and 70, are , have extremes of body size, muscle mass, or nutritional status, or are non- or non-. According to the National Kidney Foundation, irrespective of diagnosis, the stage of the disease is based on the level of kidney function: Stage Description GFR(mL/min/1.73 m(2)) 1 Kidney damage with normal or decreased GFR 90 2 Kidney damage with mild decrease in GFR 60-89 3 Moderate decrease in GFR 30-59 4 Severe decrease in GFR 15-29 5 Kidney failure <15 (or dialysis) 5 Billposter: [id number] Reference Range: 74-125 seconds 6 Billposter: [id number] Reference Range: 74-125 seconds 7 Because ethnic data is not always readily available, this report includes an eGFR for both -Americans and non- Americans. The National Kidney Disease Education Program (NKDEP) does not endorse the use of the MDRD equation for patients that are not between the ages of 18 and 70, are , have extremes of body size, muscle mass, or nutritional status, or are non- or non-. According to the National Kidney Foundation, irrespective of diagnosis, the stage of the disease is based on the level of kidney function: Stage Description GFR(mL/min/1.73 m(2)) 1 Kidney damage with normal or decreased GFR 90 2 Kidney damage with mild decrease in GFR 60-89 3 Moderate decrease in GFR 30-59 4 Severe decrease in GFR 15-29 5 Kidney failure <15 (or dialysis) 8 PLEASE CHECK LABS THIS WEEK 9 ADDITIONAL INFORMATION This test was developed and its performance characteristics determined by [facility] in a manner consistent with CLIA requirements. This test has not been cleared or approved by the U.S. Food and Drug Administration. 10 ADDITIONAL INFORMATION This test was developed and its performance characteristics determined by [facility] in a manner consistent with CLIA requirements. This test has not been cleared or approved by the U.S. Food and Drug Administration. Test Performed by: [facility] [address] [place] [address] 11 REFERENCE VALUE Not Applicable 12 RESULT: HLA-B27 antigen was not detected. ADDITIONAL INFORMATION Method: Flow Cytometry Performing Laboratory CLIA# [id number] Test Performed by: [facility] - [address] [address] 13 REFERENCE VALUE <=1.0 (Negative) 14 REFERENCE VALUE <20.0 (Negative) 15 Tests for antibodies to dsDNA and NABILA antigens are not performed automatically unless the LUZ result is > or = 3.0 U. Studies performed at [facility] indicate that positive LUZ results <3.0 U are rarely accompanied by positive second order tests. Test Performed by: [facility] - [address] [address] 16 PLEASE CHECK LABS THIS WEEK 17 PLEASE CHECK LABS THIS WEEK 18 PLEASE CHECK LABS THIS WEEK 19 Normal Range 180 to 914 Indeterminate Range 145 to 180 Deficient Range <145 20 PLEASE CHECK LABS THIS WEEK 21 Test Result Flag Unit RefValue Uric Acid, Random, U 25 mg/dL Creatinine Concentration 131 mg/dL Uric Acid/Creatinine Ratio 0.19 mg/mg REFERENCE VALUE Interpret with other clinical data. Test Performed by: [facility] - [address] [address] 22 Because ethnic data is not always readily available, this report includes an eGFR for both -Americans and non- Americans. The National Kidney Disease Education Program (NKDEP) does not endorse the use of the MDRD equation for patients that are not between the ages of 18 and 70, are , have extremes of body size, muscle mass, or nutritional status, or are non- or non-. According to the National Kidney Foundation, irrespective of diagnosis, the stage of the disease is based on the level of kidney function: Stage Description GFR(mL/min/1.73 m(2)) 1 Kidney damage with normal or decreased GFR 90 2 Kidney damage with mild decrease in GFR 60-89 3 Moderate decrease in GFR 30-59 4 Severe decrease in GFR 15-29 5 Kidney failure <15 (or dialysis) Procedures Date Code Description Status 04/27/2019 21133 EKG Tracing & Interpretation Completed 11/13/2018 88202 Moderate Sedation Services; Same Phys Intl 15 Mins; PT Completed >= 5 Years 11/13/2018 96876 Ultrasound Guidance For Vascular Access Completed 11/13/2018 53397 [id number] Completed 11/13/2018 41329 Revascularization,Endovascular,Transluminal Angioplasty Completed 05/10/2018 58745 Sleep Study Unattended,HRT Rate,Oxygen Sat,Resp Completed Effort/Airflow 01/21/2018 [id number] Colonoscopy Completed 11/19/2017 [id number] Mammogram Completed 06/24/2017 74131 Short Leg Cast Completed 06/13/2017 13663 Walking Cast Completed 06/04/2017 43301 EKG, Interpretation Only Completed 06/02/2017 56312 Lengthening Or Shortening Tendon,Leg,Ankle Single Completed Tendon 06/02/2017 55021 Lengthening Or Shortening Tendon,Leg,Ankle Single Completed Tendon 03/25/2016 [id number] Mammogram Completed 08/16/2014 99084 Rad Exam; Foot Comp Completed 07/28/2014 19549 Rad Exam; Wrist, Comp, Min 3 Views Completed 07/19/2014 58315 EKG, Interpretation Only Completed 07/01/2012 28839 EKG Tracing & Interpretation Completed 07/04/2011 03602 Treadmill Interp/Report Only Completed 07/04/2011 93344 Stress Test Supervsn W/Out I/R Completed 06/11/2011 84809 Holter Monitoring 24 HR New Completed 05/23/2011 24964 ECHO Transthoracic, Real-Time 2D With Doppler And Color Completed Flow 05/22/2011 95942 EKG Tracing & Interpretation Completed 08/27/2010 52374879 Colonoscopy Completed 11/25/2006 70106 Color Flow Doppler/Interp & Reprt Completed 11/25/2006 64976 Pulse Wave/Continuous-Interp.RPT Completed 11/25/2006 45151 Pulse Wave/Continuous-Interp.RPT Completed 11/25/2006 44616 Echocardiogram Completed 02/06/2006 03388 EKG Tracing & Interpretation Completed 10/04/2005 34927 Inj Proc LFT Vent/LFT Atrl Angio Completed 10/04/2005 87184 Left Heart Catheterization Completed 10/04/2005 22833 Coronary Angiography Completed 10/04/2005 83111 S/I/R Inj Proc Vent &/Or Atrial Completed 10/04/2005 74307 Selective Coronary Angiography Completed 10/03/2005 23618 ECHO/Stress Completed 10/03/2005 06312 Treadmill Interp/Report Only Completed 10/03/2005 37073 Stress Test Supervsn W/Out I/R Completed 10/03/2005 72291 EKG, Interpretation Only Completed 10/02/2005 83345 Color Doppler Completed 10/02/2005 04329 Pulse Doppler & Continuous Wave Completed 10/02/2005 44268 Echocardiogram Completed 02/01/2003 91062659 Colonoscopy Completed Encounters Type Date Location Provider Dx Diagnosis Office Visit 04/28/2019 Daryl Valles, I70.213 [facility] [place] 11:00a [facility] arteries of nick w intrmt karin, bi legs Office Visit 04/27/2019 [facility] Qutanancy Rai G47.33 Obstructive sleep 1:30p Hermelindo Schwartz apnea (adult) (pediatric) I10 Essential (primary) hypertension E66.9 Obesity, unspecified E78.1 Pure hyperglyceridemia R06.02 Shortness of breath Office 04/19/2019 [facility] Mar[facility]ruz Valdes MD E04.1 Nontoxic Visit 3:00p [facility] single thyroid nodule Office 02/23/2019 [facility] Gastroenterology Nurse Visit R11.0 Nausea Visit 10:00a Gastroenterology Office 02/19/2019 [facility] Gastroenterology Asya Red NP R19.4 Change in Visit 3:30p bowel habit R11.0 Nausea R14.0 Abdominal distension (gaseous) R73.9 Hyperglycemia, unspecified K58.2 Mixed irritable bowel syndrome Office Visit 12/02/2018 10:00a Daryl Mccabe I70.212 [facility] [place] [facility] Valles M.D. arteries of nick w lion karin, left leg I83.813 Varicose veins of bilateral lower extremities with pain Office Visit 11/13/2018 Daryl Mccabe I70.212 [facility] [place] 3:19p [facility] Valles M.D. arteries of nick w intrzoraida karin, left leg Office Visit 10/28/2018 Daryl Mccabe I70.212 [facility] [place] 11:30a [facility] Valles M.D. arteries of nick w intrzoraida karin, left leg Office Visit 10/14/2018 [facility] G47.33 Obstructive sleep 2:15p Sleep [facility] VIJI Ryan, RN, apnea (adult) [facility] [employer] (pediatric) G47.14 Hypersomnia due to medical condition Z68.42 Body mass index (BMI) 45.0-49.9, adult Office Visit 07/28/2018 [facility] G47.33 Obstructive sleep 1:30p [facility] VI[facility]I Ryan, RN, apnea (adult) [facility] [employer] (pediatric) G47.14 Hypersomnia due to medical condition Z68.42 Body mass index (BMI) 45.0-49.9, adult Office Visit 05/13/2018 Surgical Enrico Barbour 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 syndrome, bilateral upper limbs R79.82 Elevated C-reactive protein (CRP) M10.9 Gout, unspecified Office Visit 04/23/2018 1:00p Rheumatology Uziel Burnham G56.03 Carpal tunnel [facility] Casarez syndrome, bilateral upper limbs M10.9 Gout, unspecified M06.4 Inflammatory polyarthropathy M76.61 Achilles tendinitis, right leg R20.8 Other disturbances of skin sensation Office Visit 04/20/2018 11:00a [facility]ology [facility] Sleep Radha Phillip, R40.0 Somnolence Services [facility] R06.83 Snoring R35.1 Nocturia Z72.821 Inadequate sleep hygiene E66.01 Morbid (severe) obesity due to excess calories Z68.42 Body mass index (BMI) 45.0-49.9, adult Office Visit 03/19/2018 [facility] N63.10 Unspecified lump in 4:00p [facility] MD Carina the right breast, unspecified quadrant Office Visit 03/10/2018 [facility] Ubaldo Shi, A09 Infectious 1:41p Assocmaxime MD gastroenteritis and Hospitalists colitis, unspecified I10 Essential (primary) hypertension E66.01 Morbid (severe) obesity due to excess calories G47.33 Obstructive sleep apnea (adult) (pediatric) Office Visit 03/09/2018 [facility] Ubaldo Shi K52.9 Noninfective 1:40p Assocmaxime MD gastroenteritis and Hospitalists colitis, unspecified A09 Infectious gastroenteritis and colitis, unspecified I10 Essential (primary) hypertension E66.01 Morbid (severe) obesity due to excess calories Office Visit 03/08/2018 [facility] Sonali Hebert K52.9 Noninfective 1:39p Assoc,maxime Rivas DO gastroenteritis and Hospitalists colitis, unspecified A09 Infectious gastroenteritis and colitis, unspecified I10 Essential (primary) hypertension E66.01 Morbid (severe) obesity due to excess calories Office Visit 09/25/2017 10:30a Orthopedic Dagoberto M10.041 Idiopathic gout, Services Of Hermelindo Mcgregor right hand C.M.A. Office Visit 05/13/2017 11:45a [facility]opedic Dagoberto Tsang76.61 Achilles [facility] Hermelindo Mcgregor tendinidavid, C.M.A. right leg Office Visit 04/29/2017 11:00a Orthopedic Dagoberto Tsang76.61 Achilles [facility] Hermelindo Mcgregor tendinidavid, C.M.A. right leg Office Visit 03/21/2017 1:00p Orthopedic Dagoberto Trinidad.61 Achilles [facility] Hermelindo Mcgregor tendinidavid, C.M.A. right leg M72.2 Plantar fascial fibromatosis Office Visit 02/13/2017 11:00a [facility]opedic Dagoberto Tsang72.2 Plantar fascial Services Of Hermelindo Mcgregor fibromatosis C.M.A. Office Visit 12/27/2016 10:45a Orthopedic Dagoberto Tsang76.61 Achilles Services Of Hermelindo Mcgregor tendinitis, right C.M.A. leg Office Visit 10/18/2016 11:30a Orthopedic Dagoberto Tsang76.61 Achilles Services Of Hermelindo Mcgregor tendinidavid, right C.M.A. leg Office Visit 09/06/2016 11:00a Orthopedic Dagoberto Tsang76.61 Achilles Services Of Hermelindo Mcgregor tendinitis, right C.M.A. leg Office Visit 08/06/2016 1:00p Orthopedic Js Lock M76.61 Achilles Services Of MD Eliane tendinitis, right C.M.A. leg S86.011A Strain of right Achilles tendon, initial encounter Office Visit 07/28/2014 1:30p Orthopedic Teresa Sorenson, 354.0 Carpal Tunnel Services Of Hermelindo Syndrome C.M.A. 727.41 [facility]lion Joint [facility] 3:33p Assoc,maxime Saez M.D. Gastrointestinal Hospitalists Tract Unspec 530.3 Esophageal Stricture & Stenosis 401.9 Hypertension Unspec 311 Depressive Disorder Not Elsewhere Spec [facility] Hem[facility]age 3:33p maxime Adames M.D. Gastrointestinal Hospitalists Tract Unspec 530.3 Esophageal Stricture & Stenosis 401.9 Hypertension Unspec 311 Depressive Disorder Not Elsewhere Spec Office Visit [facility]78[facility] Hemorrhage 3:32p maxime Adames M.D. Gastrointestinal Hospitalists Tract Unspec 530.81 Esophageal Reflux 401.9 Hypertension Unspec 311 Depressive Disorder Not Elsewhere Spec Office Visit 07/19/2014 [facility] 578.9 Hemorrhage 3:32p maxime Adames M.D. Gastrointestinal Hospitalists Tract Unspec 530.81 Esophageal Reflux 401.9 Hypertension Unspec 311 Depressive Disorder Not Elsewhere Spec Office 07/18/2014 [facility] 578.9 Hemorrhage Visit 3:31p maxime Adames Gastrointestinal Hospitalists Hermelindo Tract Unspec 530.81 Esophageal Reflux 401.9 Hypertension Unspec 311 Depressive Disorder Not Elsewhere Spec Office Visit 03/06/2014 [facility], 557.0 Vascular 9:48a maxime Adames M.D. Insufficiency Of Hospitalists Intestine Acute 401.9 Hypertension Unspec 272.2 Hyperlipidemia Mixed 530.81 Esophageal Reflux Office Visit 03/05/2014 [facility], 557.0 Vascular 9:47a maxime Adames M.D. Insufficiency Of Hospitalists Intestine Acute 401.9 Hypertension Unspec 272.2 Hyperlipidemia Mixed 530.81 Esophageal Reflux Office Visit 03/04/2014 [facility], 557.0 Vascular 9:47a maxime Adames M.D. Insufficiency Of Hospitalists Intestine Acute 401.9 Hypertension Unspec 272.2 Hyperlipidemia Mixed 530.81 Esophageal Reflux Office Visit 03/03/2014 [facility], 557.0 Vascular 9:45a maxime Adames M.D. Insufficiency Of Hospitalists Intestine Acute 401.9 Hypertension Unspec 272.2 Hyperlipidemia Mixed 530.81 Esophageal Reflux Office 07/01/2012 [facility] Ramesh S. 794.31 Electrocardiogram Visit 3:40p Cardiology Hermelindo Schwartz (ECG) (EKG) Abnormal 401.1 Hypertension Benign 272.4 Hyperlipidemia Other Unspec 786.50 Pain Chest Unspec Office 07/17/2011 [facility] Qutaybeh S. 794.31 Electrocardiogram Visit 1:20p Cardiology Hermelindo Schwartz (ECG) (EKG) Abnormal 401.1 Hypertension Benign 272.4 Hyperlipidemia Other Unspec 427.61 Premature Beats Supraventricular Office 07/04/2011 [facility] Qutaybeh S. 794.31 Electrocardiogram Visit 9:30a Cardiology Hermelindo Schwartz (ECG) (EKG) Abnormal 401.1 Hypertension Benign 786.50 Pain Chest Unspec 272.4 Hyperlipidemia Other Unspec Office Visit 05/22/2011 [facility] Qutaybeh S. 272.4 Hyperlipidemia 3:40p Cardiology Hermelindo Schwartz Other Unspec 401.1 Hypertension Benign 780.4 Dizziness & Giddiness 785.1 Palpitations 786.50 Pain Chest Unspec Office Visit 02/06/2006 [facility] Qusakinaybeh S. 272.4 Hyperlipidemia 2:20p Cardiology Hermelindo Schwartz Other Unspec V72.81 Examination Preoperative Cardiovascular Plan of Treatment Future Appointment(s):07/26/2019 1:20 pm - Ramesh Schwartz M.D. at [facility]06/16/2019 8:30 am - Ramesh Schwartz M.D. at [facility]06/14/2019 1:00 pm - [place] [facility] Schedule at [facility]
--- OUTSIDE RECORDS SUMMARY | 2019-06-23 15:55 | XMS REPORT | Continuity of Care Document ---
:1945 External Reference #:[id number] Author Name Orlin Barragan M.D. Address 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 Onset: 02/19/2017 Presbyopia Silvio Thomas O.D. Onset: 01/17/2016 Vitreous degeneration Silvio Thomas O.D. Onset: 01/17/2016 Epiretinal membrane Silvio Thomas O.D. Onset: 01/17/2016 Combined form of senile cataract Silvio Thomas O.D. Onset: 01/17/2016 Social History Type Date Description Comments Sex Unknown ETOH Use Denies alcohol use Tobacco Use Start: Unknown Patient is a current smoker, smokes some marijuana days Smoking Status Reviewed: 06/23/19 Patient is a current smoker, smokes some marijuana days Allergies, Adverse Reactions, Alerts Active Allergies Reaction Severity Comments Date Morphine 01/17/2017 Medications Active Medications SIG Qnty Indications Ordering Provider Date Gabapentin Unknown 300mg Capsules Lexapro 1 by mouth every Unknown 10mg Tablets day Oxybutynin Chloride ER Unknown 15mg Tablets ER 24HR Lisinopril Unknown 20mg Tablets Nexium 24HR Unknown 20mg Capsules Vitamin D3 Unknown 1000Unit Capsules Probiotic Unknown Capsules Vitamin B12 1 by mouth every Unknown 100mcg day Tablets Myrbetriq Take 1 Tablet By Unknown 50mg Tablets ER Mouth Once Daily 24HR In The Evening Esomeprazole Magnesium Take 1 Capsule By Unknown Mouth Once Daily 40mg Capsules DR Holden Unknown 600mg Tablets Immunizations Description No Information Available Vital Signs Date Vital Result Comment 06/23/2019 2:41pm Intraocular Pressure Right Eye 16 mmHg Intraocular Pressure Left Eye 16 mmHg 11/19/2017 1:41pm Intraocular Pressure Right Eye 15 mmHg Intraocular Pressure Left Eye 16 mmHg Results Description No Information Available Procedures Date Code Description Status 06/23/2019 49459 Visual Field Exam Extended, Unilateral Or Bilateral Completed 06/23/2019 97969 Eye Exam Est Intermediate Completed Medical Devices Description No Information Available Encounters Description No Information Available Assessments Date Code Description Provider 06/23/2019 I63.9 Cerebral infarction, unspecified Orlin Barragan M.D. Plan of Treatment No Information Available Functional Status Description No Information Available Mental Status Description No Information Available Referrals Description No Information Available
--- OUTSIDE RECORDS SUMMARY | 2019-06-23 15:55 | XMS REPORT | Continuity of Care Document ---
:1945 External Reference #:[id number] Author Name Celina Anguiano Care Team Providers Name Role Phone Dallas Cornelius MD Primary Care Physician Unavailable Payers Date Identification Numbers Payment Provider Subscriber Expires: 2018 Policy Number: [id number] [facility] Joshua Claudio PayID: [id number] [address] [address] [place] [address] Policy Number: [id number] Medicare Radha Vang PayID: [id number] [address] [place] [address] Effective: 2018 Policy Number: [id number] [facility] Radha Vang PayID: [id number] [address] [place] [address] Problems Active Problems Provider Date Electrocardiogram abnormal Ramesh Schwartz M.D. Onset: 07/01/2012 Benign essential hypertension Ramesh Shcwartz M.D. Onset: 07/01/2012 Hyperlipidemia Ramesh Schwartz M.D. Onset: 07/01/2012 Chest pain Ramesh Schwartz M.D. 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 Onset: 12/02/2018 Intermittent claudication due to Aristeo Valles M.D. 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 [...] Medications Active Medications SIG Qnty Indications Ordering Date Provider Gemfibrozil one po bid 180tabs E78.1 Qutaybjose carlos STereza 04/27/2019 600mg Hermelindo Schwartz Tablets Wrist Splint use nightly to 2units G56.03 Uziel Burnham, 04/23/2018 [facility] [place] numbness and tingling in the right and left hand g560.03, carpal tunnel Calcium Citrate 500mg Unknown 200mg Tablets Hyoscyamine [...] every Unknown 20mg Tablets day History Medications Compression Stockings wear as directed 1Pair Dagoberto Mcgregor, 11/10/2017 - M.DTereza 07/27/2018 Misc Naproxen 1 by mouth twice 30tabs M10.041 Dagoberto Mcgregor, 09/25/2017 - 375mg Tablets a day M.DTereza 04/23/2018 Percocet take 1-2 tabs by 40tabs Dagoberto Mcgregor, 05/30/2017 - 5-325mg mouth q4-6 hours M.DTereza 07/06/2017 Tablets as needed pain Celexa one tablet qd po 30tabs Retataybjose carlos STereza 02/05/2006 - 50mg Tablets Hermelindo Schwartz 05/22/2011 Zetia 1 PO qd 90tabs Qutaybeh S. 02/05/2006 - 10mg Tablets Hermelindo Schwartz 05/22/2011 Celebrex One Tablet bid PO 30caps Ramesh STereza 02/05/2006 - 200mg Capsules Hermelindo Schwartz 05/22/2011 Nexium 1 PO bid- takes Qutaybeh S. 02/05/2006 - 40mg Capsules 20mg daily Hermelindo Schwartz 08/07/2016 Hair Skin Nails Unknown - Unknown Capsules Citracal +D3 take one Unknown - capsule/tablet by Unknown [id number]-Unit mouth twice daily Chewtabs Calcium 600 + Unknown - Minerals 04/23/2018 [id number] Tablets Nexium 1 by mouth every Unknown - 20mg Capsules DR day 11/28/2018 Acetaminophen Extra 2 tab by [...] Suspension three times daily Gabapentin Three times daily Unknown - 100mg 07/28/2014 Capsules Gabapentin 1 po tid 90caps Unknown - 300mg 07/26/2014 Capsules Xanax 1/2 to 1 as 40tabs Unknown - 0.5mg Tablets needed up to 3x/d Unknown Gelnique as directed Unknown - 10% Gel 08/05/2016 Lisinopril 1 po qd 90tabs Unknown - 20mg Tablets 07/26/2014 Niaspan 1tab pm 30tabs Unknown - 500mg Tablets 07/26/2014 ER Mirtazapine 1 by mouth every 30tabs Unknown - 15mg night 08/05/2016 Tablets Vital Signs Date Vital Result Comment 04/27/2019 1:12pm Height 61 inches 5'1" Weight [...] Test Result H/L Range Note Laboratory test 04/23/2019 [facility] Cytology SEE RESULT [address] [place] [address] [phone] Surgical Pathology <pending> Laboratory test 02/23/2019 [facility] H Pylori C Negative Negative 2, [address] [place] [address] Test [phone] Laboratory test 02/19/2019 [facility] Lipase 21 U/L N 11.0- 82.[address] [place] [address] [phone] Amylase 29 U/L N 29-103 Comp Metabolic Panel 02/19/2019 [facility] Sodium 136 mmol/L N 135-[address] [place] [address] [phone] Potassium 4.8 mmol/L N 3.5-5.0 Chloride 100 mmol/L Low 101-111 Co2 Carbon Dioxide 27 mmol/L N 22-32 Anion Gap 9 mmol/L N 2-11 Glucose 107 mg/dL High 70-100 Blood Urea Nitrogen 26 mg/dL High 6-24 Creatinine 1.14 mg/dL High 0.51-0.95 BUN/Creatinine Ratio 22.8 High 8-20 Calcium 10.9 mg/dL High 8.6-10.3 Total Protein 7.9 g/dL N 6.4-8.9 Albumin 4.6 g/dL N 3.2-5.2 Globulin 3.3 g/dL N 2-4 Albumin/Globulin Ratio 1.4 N 1-3 Total Bilirubin 1.00 mg/dL N 0.2-1.0 Alkaline Phosphatase 72 U/L N 34-104 Alt 17 U/L N 7-52 Ast 17 U/L N 13-39 Egfr Non- 46.7 >60 Egfr 56.5 >60 4 CBC No Diff 02/19/2019 [facility] White Blood 9.6 10^3/uL N 3.5-10.[address] [place] [address] [phone] Red Blood Count 5.04 10^6/uL High 3.70-4.87 Hemoglobin 14.5 g/dL N 12.0-16.0 Hematocrit 45 % N 35-47 Mean Corpuscular Volume 88 fL N 80-97 Mean Corpuscular Hemoglobin 29 pg N 27-31 Mean Corpuscular HGB Conc 33 g/dL N 31-36 Red Cell Distribution Width 16 % High 10.5-15 Platelet Count 323 10^3/uL N 150-450 Mean Platelet Volume 9.5 fL N 7.4-10.4 Laboratory test 11/13/2018 [facility] Poc Activated 192 seconds [address] [place] [address] [phone] Laboratory test 11/13/2018 [facility] Poc Activated 140 seconds [address] [place] [address] [phone] Basic Metabolic 11/10/2018 [facility] Sodium 138 mmol/L N 135- [address] [place] [address] [phone] Potassium 4.3 mmol/L N 3.5-5.0 Chloride 103 mmol/L N 101-111 Co2 Carbon Dioxide 27 mmol/L N 22-32 Anion Gap 8 mmol/L N 2-11 Glucose 104 mg/dL High 70-100 Blood Urea Nitrogen 20 mg/dL N 6-24 Creatinine 1.18 mg/dL High 0.51-0.95 BUN/Creatinine Ratio 16.9 N 8-20 Calcium 10.2 mg/dL N 8.6-10.3 Egfr Non- 44.9 >60 Egfr 54.3 >60 7 Laboratory test 04/23/2018 [facility] TSH (Thyroid 1.46 mcIU/mL N 0.34-5.60 [address] [place]) [place] [address] [phone] Vitamin B6 04/23/2018 [facility] Pyridoxal 5 g/L 5-[address] [place] 5[place] [address] [phone] Pyridoxic Acid 6 g/L 3-30 10 Hla B27 04/23/2018 [facility] Hla B27 Negative [address] [place] [address] [phone] Hla B27 Interp See Comment 12 Connective Tissue 04/23/2018 [facility] Anti-Nuclear 0.3 U [address] [place] [address] [phone] Cyclic Citrullinated Peptide <15.6 U 14 Interpretation See Comment 15 Laboratory test 04/23/2018 [facility] Rheumatoid < 10 IU/mL N <[address] [place] [address] [phone] C Reactive Protein 11.88 mg/L High <8.01 17 Erythrocyte Sed Rate 40 mm/Hr N 0-40 18 Vitamin B12 04/23/2018 [facility] Vitamin B12 > 1450 High 180- 9[address] pg/[place] [address] [phone] Folic Acid (Folate) 18.18 ng/mL >3.99 20 Laboratory test 09/25/2017 [facility] Erythrocyte Sed 25 mm/Hr N 0-[address] [place] [address] [phone] Miscellaneous Test See Comment 21 Inr/Protime 05/26/2017 [facility] Inr 0.91 N 0.89-1.[address] [place] [address] [phone] Basic Metabolic 05/26/2017 [facility] Sodium 137 mmol/L N 133- [address] [place] [address] [phone] Potassium 4.4 mmol/L N 3.5-5.0 Chloride 103 mmol/L N 101-111 Co2 Carbon Dioxide 26 mmol/L N 22-32 Anion Gap 8 mmol/L N 2-11 Glucose 104 mg/dL High 70-100 Blood Urea Nitrogen 17 mg/dL N 6-24 Creatinine 1.01 mg/dL High 0.51-0.95 BUN/Creatinine Ratio 16.8 N 8-20 Calcium 9.6 mg/dL N 8.6-10.3 Egfr Non- 53.9 N >60 Egfr 69.3 N >60 22 Laboratory test 05/26/2017 [facility] Partial 29.9 seconds N 26.0-36.[address] [place] [address] PTT [phone] 1 SEE RESULT BELOW Name: RADHA VANG : [address]: Maricruz Valdes MD Acct: [id number] Unit: [id number] AGE: 73 Location: Re04/26/19 SEX: F Status: REG REF SPEC: [id number] ESTEFANI: 04/23/19-[address] [facility] [address]: Maricruz Valdes MD REQ: [id number] RECD: 04/25/19-1257 STATUS: HOLLIE LEE DR: Aristeo Valles MD _ ORDERED: FNA-IMG GUID BX, CYTO ADEQ-1ST P FINAL DIAGNOSIS Thyroid, left, ultrasound guided fine needle aspiration: --Benign thyroid nodule, colloid/hyperplastic type ([place] Class II). The specimen demonstrates abundant watery [...] CONTINUED ON NEXT PAGE DEPARTMENT OF PATHOLOGY, [facility] [employer] [place] [address] Andres Bañuelos M.D. Director TARUN # [id number] RUN DATE: 04/27/19 [facility] LAB LIVE PAGE 2 Patient: RADHA VANG [id number] (Continued) GROSS DESCRIPTION (Continued) GROSS DESCRIPTION Ultrasound guided, fine needle aspiration x 2 with 3 alcohol fixed slide(s) Signed by and Reported on: Lala Huff MD 04/27/19 0828 END OF REPORT DEPARTMENT OF PATHOLOGY, [facility] [employer] [place], [place] [address] Andres Bañuelos M.D. Director TARUN # [id number] 2 [id number] Result indicates the absence of current Helicobacter pylori infection. Test Performed by: [facility] [address], [place] [address] 4 Because ethnic data is not always [...] 5 Kidney failure <15 (or dialysis) 5 Medical Education Specialist: [id number] Reference Range: 74-125 seconds 6 Medical Education Specialist: [id number] Reference Range: 74-125 seconds 7 Because ethnic [...] developed and its performance characteristics determined by [facility] in a manner consistent with CLIA requirements. This test has not been cleared or approved by the U.S. Food and Drug Administration. 10 ADDITIONAL INFORMATION This test was developed and its performance characteristics determined by [facility] in a manner consistent with CLIA requirements. This test has not been cleared or approved by the U.S. Food and Drug Administration. Test Performed by: [facility] [address] [place] [address] 11 REFERENCE VALUE Not Applicable 12 RESULT: HLA-B27 antigen was not detected. ADDITIONAL INFORMATION Method: Flow Cytometry Performing Laboratory CLIA# [id number] Test Performed by: [facility] - [address] [address] 13 REFERENCE VALUE <=1.0 (Negative) 14 REFERENCE VALUE <20.0 (Negative) 15 Tests for antibodies to dsDNA and NABILA antigens are not performed automatically unless the LUZ result is > or = 3.0 U. Studies performed at [facility] indicate that positive LUZ results <3.0 U are rarely accompanied by positive second order tests. Test Performed by: [facility] - [address] [address] 16 PLEASE CHECK LABS THIS WEEK 17 [...] with other clinical data. Test Performed by: [address] [address] 22 Because ethnic data is not always [...] dialysis) Procedures Date Code Description Status 04/27/2019 43690 EKG Tracing & Interpretation Completed 11/13/2018 66778 Moderate Sedation Services; Same Phys Intl 15 Mins; PT Completed >= 5 Years 11/13/2018 20624 Ultrasound Guidance For Vascular Access Completed 11/13/2018 71132 Bjbsn-Gqobklpbm-Rheawmilbg Completed 11/13/2018 44915 Revascularization,Endovascular,Transluminal Angioplasty Completed 05/10/2018 71667 Sleep Study Unattended,HRT Rate,Oxygen Sat,Resp Completed Effort/Airflow 01/21/2018 [id number] Colonoscopy Completed 11/19/2017 [id number] Mammogram Completed 06/24/2017 97238 Short Leg Cast Completed 06/13/2017 70340 Walking Cast Completed 06/04/2017 51606 EKG, Interpretation Only Completed 06/02/2017 77242 Lengthening Or Shortening Tendon,Leg,Ankle Single Completed Tendon 06/02/2017 22641 Lengthening Or Shortening Tendon,Leg,Ankle Single Completed Tendon 03/25/2016 72174382 Mammogram Completed 08/16/2014 48846 Rad Exam; Foot Comp Completed 07/28/2014 19875 Rad Exam; Wrist, Comp, Min 3 Views Completed 07/19/2014 58341 EKG, Interpretation Only Completed 07/01/2012 38767 EKG Tracing & Interpretation Completed 07/04/2011 09377 Treadmill Interp/Report Only Completed 07/04/2011 20407 Stress Test Supervsn W/Out I/R Completed 06/11/2011 73441 Holter Monitoring 24 HR New Completed 05/23/2011 86442 ECHO Transthoracic, Real-Time 2D With Doppler And Color Completed Flow 05/22/2011 63581 EKG Tracing & Interpretation Completed 08/27/2010 18203009 Colonoscopy Completed 11/25/2006 52692 Color Flow Doppler/Interp & Reprt Completed 11/25/2006 98651 Pulse Wave/Continuous-Interp.RPT Completed 11/25/2006 08807 Pulse Wave/Continuous-Interp.RPT Completed 11/25/2006 98324 Echocardiogram Completed 02/06/2006 87466 EKG Tracing & Interpretation Completed 10/04/2005 46773 Inj Proc LFT Vent/LFT Atrl Angio Completed 10/04/2005 08253 Left Heart Catheterization Completed 10/04/2005 76701 Coronary Angiography Completed 10/04/2005 59631 S/I/R Inj Proc Vent &/Or Atrial Completed 10/04/2005 38503 Selective Coronary Angiography Completed 10/03/2005 15281 ECHO/Stress Completed 10/03/2005 93718 Treadmill Interp/Report Only Completed 10/03/2005 15614 Stress Test Supervsn W/Out I/R Completed 10/03/2005 51899 EKG, Interpretation Only Completed 10/02/2005 40908 Color Doppler Completed 10/02/2005 95424 Pulse Doppler & Continuous Wave Completed 10/02/2005 49860 Echocardiogram Completed 02/01/2003 47230065 Colonoscopy Completed Encounters Type Date Location Provider Dx Diagnosis Office Visit 04/19/2019 [facility] Valdes MD E04.1 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 arteries of extrm w intrmt karin, left leg I83.813 Varicose veins of bilateral lower extremities with pain Office Visit 11/13/2018 [facility] Chinyere Mccabe I70.212 Athscl [place] 3:19p Medicine Of Jazz Valles M.D. arteries of extrm w intrmt karin, left leg Office Visit 10/28/2018 [facility] Chinyere Mccabe I70.212 Athscl [place] 11:30a Medicine Of Jazz Valles M.D. arteries of extrm w intrmt karin, left leg Office Visit 10/14/2018 Pulmonology And Kianna G47.33 Obstructive sleep 2:15p Sleep Services [facility] VIJI Ryan RN, [facility] ([facility] G47.14 Hypersomnia due to medical condition Z68.42 Body mass index (BMI) 45.0-49.9, adult Office Visit 07/28/2018 Pulmonology And Kianna G47.33 Obstructive sleep 1:30p Sleep Services Of VIJI Ryan RN, apnea (adult) [facility] BUFFET MANAGER-BC (pediatric) G47.14 Hypersomnia due to medical condition [...] Sleep Radha Phillip, R40.0 Somnolence Services Of [facility] R06.83 Snoring R35.1 Nocturia Z72.821 Inadequate sleep hygiene E66.01 Morbid (severe) obesity due to excess calories Z68.42 Body mass index (BMI) 45.0-49.9, adult Office Visit 03/19/2018 [facility] N63.10 Unspecified lump in 4:00p Clinic of Jazz Lim MD the right breast, unspecified quadrant Office Visit 03/10/2018 [facility] Ubaldo Shi, A09 Infectious 1:41p maxime Adames MD gastroenteritis and Hospitalists colitis, unspecified I10 Essential (primary) hypertension E66.01 Morbid (severe) obesity due to excess calories G47.33 Obstructive sleep apnea (adult) (pediatric) Office Visit 03/09/2018 [facility] Ubaldo Shi, K52.9 Noninfective 1:40p maxime Adames MD gastroenteritis and Hospitalists colitis, unspecified A09 Infectious gastroenteritis and colitis, unspecified I10 Essential (primary) hypertension E66.01 Morbid (severe) obesity due to excess calories Office Visit 03/08/2018 [facility] Emilee K52.9 Noninfective 1:39p maxime Adames, DO gastroenteritis and Hospitalists colitis, unspecified A09 Infectious gastroenteritis and colitis, unspecified I10 Essential (primary) hypertension E66.01 Morbid (severe) obesity due to excess calories Office Visit 09/25/2017 10:30a Orthopedic Dagoberto M10.041 Idiopathic gout, Services Of Hermelindo Mcgregor right hand C.M.A. Office Visit 05/13/2017 11:45a Orthopedic Dagoberto Trinidad.61 [facility] Of Hermelindo Mcgregor C.MAmy right leg Office Visit 04/29/2017 11:00a Orthopedic Dagoberto Trinidad.61 [facility] Of Hermelindo Mcgregor CTerezaM.Km right leg Office Visit 03/21/2017 1:00p Maria Del Rosario Harrington61 [facility] Of Balbir, M.D. tendinitis, C.M.A. right leg M72.2 Plantar fascial fibromatosis Office Visit 02/13/2017 11:00a Orthopedic Dagoberto Tsang72.2 Plantar fascial Services Of Hermelindo Mcgregor fibromatosis C.M.A. Office Visit 12/27/2016 10:45a Orthopedic Dagoberto Tsang76.61 [facility] Of Hermelindo Mcgregor tendinitis, right C.M.A. leg Office Visit 10/18/2016 11:30a Orthopedic Dagoberto Trinidad.61 [facility] Of Hermelindo Mcgregor tendinitis, right C.M.A. leg Office Visit 09/06/2016 11:00a Orthopedic Dagoberto Tsang76.61 [facility] Of Hermelindo Mcgregor tendinitis, right C.M.A. leg Office Visit 08/06/2016 1:00p Orthopedic Js Lock M76.61 [facility] Services Of MD Eliane tendinitis, right C.M.A. leg S86.011A Strain of right Achilles tendon, initial encounter Office Visit 07/28/2014 1:30p Orthopedic Teresa Sorenson, 354.0 Carpal Tunnel Services Of M.D. Syndrome C.M.A. 727.41 Ganglion Joint Office Visit 07/22/2014 [facility] 578.9 Hemorrhage 3:33p maxime Adames M.D. Gastrointestinal Hospitalists Tract Unspec 530.3 Esophageal Stricture & Stenosis 401.9 Hypertension Unspec 311 Depressive Disorder Not Elsewhere Spec Office Visit 07/21/2014 [facility] 578.9 Hemorrhage 3:33p maxime Adames M.D. Gastrointestinal Hospitalists Tract Unspec 530.3 Esophageal Stricture & Stenosis 401.9 Hypertension Unspec 311 Depressive Disorder Not Elsewhere Spec [facility] Hem[facility]age 3:32p maxime Adames M.D. Gastrointestinal Hospitalists Tract Unspec 530.81 Esophageal Reflux 401.9 Hypertension Unspec 311 Depressive Disorder Not Elsewhere Spec Office Visit 07/19/2014 [facility] 578.9 Hemorrhage 3:32p maxime Adames M.D. Gastrointestinal Hospitalists Tract Unspec 530.81 Esophageal Reflux 401.9 Hypertension Unspec 311 Depressive Disorder Not Elsewhere Spec Office 07/18/2014 [facility] 578.9 Hemorrhage Visit 3:31p maxime Adames Gastrointestinal Hospitalists Hermelindo Tract Unspec 530.81 Esophageal Reflux 401.9 Hypertension Unspec 311 Depressive Disorder Not Elsewhere Spec Office Visit 03/06/2014 [facility], 557.0 Vascular 9:48a maxime Adames M.D. Insufficiency Of Hospitalists Intestine Acute 401.9 Hypertension Unspec 272.2 Hyperlipidemia Mixed 530.81 Esophageal Reflux Office Visit 03/05/2014 [facility], 557.0 Vascular 9:47a maxime Adames M.D. Insufficiency Of Hospitalists Intestine Acute 401.9 Hypertension Unspec 272.2 Hyperlipidemia Mixed 530.81 Esophageal Reflux Office Visit 03/04/2014 [facility], 557.0 Vascular 9:47a maxime Adamse M.D. Insufficiency Of Hospitalists Intestine Acute 401.9 Hypertension Unspec 272.2 Hyperlipidemia Mixed 530.81 Esophageal Reflux Office Visit 03/03/2014 [facility], 557.0 Vascular 9:45a maxime Adames M.D. Insufficiency Of Hospitalists Intestine Acute 401.9 Hypertension Unspec 272.2 Hyperlipidemia Mixed 530.81 Esophageal Reflux Office 07/01/2012 [place] Qutaybeh S. 794.31 Electrocardiogram Visit 3:40p Cardiology Hermelindo Schwartz (ECG) (EKG) Abnormal 401.1 Hypertension Benign 272.4 Hyperlipidemia Other Unspec 786.50 Pain Chest Unspec Office 07/17/2011 [place] Qutaybeh S. 794.31 Electrocardiogram Visit 1:20p Cardiology Hermelindo Schwartz (ECG) (EKG) Abnormal 401.1 Hypertension Benign 272.4 Hyperlipidemia Other Unspec 427.61 Premature Beats Supraventricular Office 07/04/2011 [place] Qutaybeh S. 794.31 Electrocardiogram Visit 9:30a Luna Schwartz M.D. (ECG) (EKG) Abnormal 401.1 Hypertension Benign 786.50 Pain Chest Unspec 272.4 Hyperlipidemia Other Unspec Office Visit 05/22/2011 [place] Qutaybeh S. 272.4 Hyperlipidemia 3:40p Luna Schwartz M.D. Other Unspec 401.1 Hypertension Benign 780.4 Dizziness & Giddiness 785.1 Palpitations 786.50 Pain Chest Unspec Office Visit 02/06/2006 [place] Qutaybeh S. 272.4 Hyperlipidemia 2:20p Cardiology Hermelindo Schwartz Other Unspec V72.81 Examination Preoperative Cardiovascular Plan of Treatment Future Appointment(s):07/26/2019 1:20 pm - Ramesh Schwartz M.D. at [facility]06/16/2019 8:30 am - Ramesh Schwartz M.D. at [facility]06/14/2019 1:00 pm - [place] E[facility] Schedule at [facility]2018 - Ramesh Schwartz M.D.G47.33 Obstructive sleep apnea (adult) ( pediatric)I10 Essential (primary) avtngnymbavvQ95.9 Obesity, esiaadnlebxD14.1 Pure hyperglyceridemiaNew Medication:Gemfibrozil 600 mg - one po bidFollow up:6- 9 wks ov to discuss xwahxC65.02 Shortness of breathNew Orders:Echocardiogram, Scheduled: 06/14/19Lexiscan Nuclear Myoview, Scheduled: 06/16/19
--- NOTE | 2019-06-23 16:31 | ED ---
Neurological HPI - HPI Summary HPI Summary: The patient is a 74 y/o F presenting to [facility] accompanied by with a chief complaint of visual changes in the left eye following a vertigo dizziness episode two days ago. She reports that shes had two vertigo attacks, one a few months ago where she fell, and a second one about 40 hours ago, where she also fell. She states that the peripheral vision in the left eye has gone away since she fell, and while she was in the car, she was unable to see him driving when she turned. She notes that her vision has improved since onset. She did visit Dr. Barragan from ophthalmology about 2 hours ago, and he diagnosed her with a stroke posterior to the left eye. She additionally c/o diaphoresis during the event. Currently, her symptoms are rated 0/10 in severity. There are no aggravating or alleviating factors. PMHx: cataracts, angina, HLD, HTN, atherosclerosis, GERD, IBS, anxiety, depression. Former smoker, rare EtOH, marijuana use. Medications reviewed. Allergies noted. - History of Current Complaint Chief Complaint: EDNeurologicalDeficit Stated Complaint: STROKE BEHIND HIGH PER DOC 40 HR AGO Time Seen by Provider: 06/23/19 16:21 Hx Obtained From: Patient Onset/Duration: Sudden Onset, Started days ago - two, Still Present - improved since onset Timing: Sudden Onset Onset Severity: Moderate Current Severity: Mild Pain Intensity: 0 Pain Scale Used: 0-10 Numeric Character: Dizzy, Visual Changes - decreased peripheral vision on left Aggravating: Nothing Alleviating: Nothing Associated Signs and Symptoms: Positive: Dizziness, Diaphoresis TPA Considered: No - patient's symptoms began more than 40 hours ago - Additional Pertinent History Primary Care Physician: [id number] - Allergy/Home Medications Allergies/Adverse Reactions: Allergies Allergy/AdvReac Type Severity Reaction Status Date / Time codeine Allergy Hallucinati Verified 06/23/19 15:41 ons meperidine [From Demerol] Allergy Hallucinati Verified 06/23/19 15:41 ons metoclopramide [From Reglan] Allergy Hallucinati Verified 06/23/19 15:41 ons NSAIDS (Non-Steroidal Allergy See Comment Verified 06/23/19 15:41 Anti-Inflamma morphine AdvReac Hallucinati Verified 06/23/19 15:41 ons nitroglycerin AdvReac See Comment Verified 06/23/19 15:41 statins Allergy See Comment Uncoded 06/23/19 15:41 Home Medications: Home Medications Allopurinol TAB* [Zyloprim 300 MG TAB*] 300 mg PO DAILY 06/23/19 [History Confirmed 06/23/19] Calcium Citrate TAB* [Citracal TAB*] 1,000 mg PO DAILY 06/23/19 [History Confirmed 06/23/19] Cyanocobalamin (Vitamin B-12) [Vitamin B12] 5,000 mcg PO DAILY 06/23/19 [ History Confirmed 06/23/19] Esomeprazole(NF) [NexIUM(NF)] 40 mg PO DAILY 06/23/19 [History Confirmed ] Methylcellulose [Fiber Therapy] 1,000 mg PO DAILY 06/23/19 [History Confirmed ] PMH/Surg Hx/FS Hx/Imm Hx Endocrine/Hematology History: Denies: Hx Diabetes Cardiovascular History: Reports: Hx Angina - No current chest pain, Hx Hypercholesterolemia, Hx Hypertension, Hx Valvular Heart Disease - MR, Other Cardiovascular Problems/Disorders - ATHEROSCLEROSIS DX 2013 Denies: Hx Coronary Artery Disease, Hx Myocardial Infarction, Hx Pacemaker/ ICD Respiratory History: Denies: Hx Asthma, Hx Chronic Obstructive Pulmonary Disease (COPD) GI History: Reports: Hx Gastroesophageal Reflux Disease - controlled with medication, Hx Irritable Bowel - listed in H&P, Other GI Disorders - Hx ischemic colitis, (in chart) History: Reports: Other Problems/Disorders - stress incontinence/ wears pad Denies: Hx Renal Disease Musculoskeletal History: Reports: Hx Arthritis - possible in knees, Other Musculoskeletal History - right torn achilles tendon Sensory History: Reports: Hx Cataracts - February 2015, Hx Hearing Aid - hearing aides at home with Denies: Hx Contacts or Glasses Opthamlomology History: Reports: Hx Cataracts - February 2015 Denies: Hx Contacts or Glasses Neurological History: Denies: Hx Headaches Psychiatric History: Reports: Hx Anxiety - controlled with medication, Hx Depression - controlled with medication Denies: Hx Panic Disorder - Cancer History Hx Chemotherapy: No Hx Radiation Therapy: No - Surgical History Surgical History: Yes Surgery Procedure, Year, and Place: CHOLECYSTECTOMY 1987, BILATERAL HIP REPLACEMENTS, 2005, 2009. EXPLORATORY ABD 2004. CATARACT 2017. 1987 - GASTRIC BYPASS, PREVOUSLY - LAP BAND - THEN REVERSAL . 1996 - ABDOMINOPLASTY & PANNICULECTOMY; 1997 - COSMETIC -THIGHS ( REMOVAL OF SKIN) : 2002 OPEN WOUND - ABD AREA FROM PREV SURG -. 2010 LT KNEE. 2004 - CARDIAC CATH - NO STENTS. gastric bypass revision/reversal 2014 Hx Anesthesia Reactions: No Infectious Disease History: No Infectious Disease History: Denies: Traveled Outside the [place] in Last 30 Days - Family History Known Family History: Positive: Cardiac Disease - Social History Alcohol Use: Rare Alcohol Amount: 1-2 drinks, one-two x a year Hx Substance Use: Yes Substance Use Type: Reports: Marijuana Substance Use Comment - Amount & Last Used: 1-2 x a day Hx Tobacco Use: No Smoking Status (MU): Former Smoker Amount Used/How Often: smoked for approx 10 yrs, 1 ppd Review of Systems Positive: Skin Diaphoresis Positive: Other - decreased vision in left eye Neurological: Other - dizziness All Other Systems Reviewed And Are Negative: Yes Physical Exam - Summary Physical Exam Summary: VITAL SIGNS: Reviewed. GENERAL: Patient is a well-developed and nourished female who is lying comfortable in the stretcher. Patient is not in any acute respiratory distress. HEAD AND FACE: No signs of trauma. No ecchymosis, hematomas or skull depressions. No sinus tenderness. EYES: PERRLA, EOMI x 2, No injected conjunctiva, no nystagmus. No photophobia. EARS: Hearing grossly intact. Ear canals and tympanic membranes are within normal limits. MOUTH: Oropharynx within normal limits. NECK: Supple, trachea is midline, no adenopathy, no JVD, no carotid bruit, no c- spine tenderness, neck with full ROM. No meningeal signs, no Kernig's or brudzinskis signs. CHEST: Symmetric, no tenderness at palpation. LUNGS: Clear to auscultation bilaterally. No wheezing or crackles. CVS: Regular rate and rhythm, S1 and S2 present, no murmurs or gallops appreciated. ABDOMEN: Soft, non-tender. No signs of distention. No rebound, no guarding, and no masses palpated. Bowel sounds are normal. EXTREMITIES: FROM in all major joints, no edema, no cyanosis or clubbing. NEURO: Alert and oriented x 3. Left eye has peripheral vision loss. Speech is normal and follows commands. NIH: 1 (see scale). SKIN: Dry and warm. GCS: 15. Triage Information Reviewed: Yes Vital Signs On Initial Exam: Initial Vitals Temp Pulse Resp BP Pulse Ox 98.2 F 79 16 153/79 95 06/23/19 15:35 06/23/19 15:35 06/23/19 15:35 06/23/19 15:35 06/23/19 15:35 Vital Signs Reviewed: Yes - John Coma Scale Best Eye Response: 4 - Spontaneous Best Motor Response: 6 - Obeys Commands Best Verbal Response: 5 - Oriented Coma Scale Total: 15 Diagnostics - Vital Signs Vital Signs Temp Pulse Resp BP Pulse Ox 06/23/19 15:35 98.2 F 79 16 153/79 95 - Laboratory Result Diagrams: 06/23/19 17:24 06/23/19 17:24 Lab Statement: Any lab studies that have been ordered have been reviewed, and results considered in the medical decision making process. - CT Brain CT CT Interpretation Completed By: Radiologist Summary of CT Findings: Impression: 1. Early subacute infarct of the right FLYING SHEAR OPERATOR territory with only mild local mass effect. There is no associated hemorrhage. 2. Mild chronic small vessel scanner disease is likely. ED physician has reviewed this imaging report. - EKG 1659 Cardiac Rate: NL - 74 bpm EKG Rhythm: Sinus Rhythm EKG Comparison: No Significant Change - Similar to previous EKG taken on . Summary of EKG Findings: NSR at [address] elevations. NIH Scale - NIH Scale Level of Consciousness: Alert/Keenly Responsive Ask Patient the Month and His/Her Age: Both Correct Ask Pt to Open/Close Eyes and Sinker Puller/Release Non-Paretic Hand: Both Correctly Best Gaze (Only Horizontal Eye Movement): Normal Visual Field Testing: Partial Hemianopia Facial Paresis-Pt to Smile & Close Eyes or Grimace Symmetry: Normal/Symmetrical Motor Function - Right Arm: No Drift-Holds 10 Seconds Motor Function - Left Arm: No Drift-Holds 10 Seconds Motor Function - Right Leg: No Drift-Holds 10 Seconds Motor Function - Left Leg: No Drift-Holds 10 Seconds Limb Ataxia-Must be out of Proportion to Weakness Present: Absent Sensory (Use Pinprick to Test Arms/Legs/Trunk/Face): Normal Best Language (Describe Picture, Name Items): No Aphasia Dysarthria (Read Several Words): Normal Extinction and Inattention: No Abnormality Total Score: 1 Re-Evaluation - Re-Evaluation First Eval Re-Evaluation Time: 17:35 Comment: We discussed plan for admission following CT results. Course/Dx - Course Assessment/Plan: Patient is a 74 y/o F with chief complaint of sudden onset impaired monocular vision on the left beginning approximately 40 hours prior to arrival following an episode of vertigo that caused her to fall. Dx of stroke behind left eye, per Dr. Barragan, ophthalmology, 2 hours prior to arrival. Blood test results without any significant abnormality, except for creatinine of 0.96, glucose of 104, and the urinalysis is negative for UTI. Head CT impression: Fairly subacute infarct of the right FLYING SHEAR OPERATOR territory with only mild local mass effect. There is no associated hemorrhage. Mild chronic small vessel ischemic disease is likely. I discussed my physical exam and findings with and Dr. Puga from neurology, and since the patients symptoms are more than 40 hours ago the patient is not a candidate for TPA. Therefore, he recommends for the patient to be giving Plavix since the patient has an allergy to NSAIDs. He also recommends a dysphagia screen and admission to the hospitalist. I discussed my physical exam and findings with Dr. Tate from the hospital services who accepted the patient for admission. The patient is hemodynamically stable alert and oriented 3. - Diagnoses Provider Diagnoses: Cerebral infarct - Physician Notifications Discussed Care Of Patient With: Faby Tate - hospitalist Time Discussed With Above Provider: 17:30 Instructed by Provider To: Admit As Observation - Dr. Tate accepts patient for admission concerning subacute stroke. I spoke with Dr. Puga, neurology, prior to admission, concerning the patient's case, and he agrees with admission. He recommended Plavix and no TPA since the patient's symptoms began more than 40 hours ago. - Critical Care Time Critical Care Time: 30-74 min Discharge ED - Sign-Out/Discharge Documenting (check all that apply): Patient Departure - Patient accepted for admission by Dr. Tate. Patient Received Moderate/Deep Sedation with Procedure: No - Discharge Plan Condition: Stable Disposition: ADMITTED TO [facility] Referrals: Dallas Cornelius MD [Primary Care Provider] - - Billing Disposition and Condition Condition: STABLE Disposition: Admitted to [facility] - Attestation Statements Document Initiated by Scribe: Yes Documenting Scribe: Nisreen Keen Provider For Whom Scribe is Documenting (Include Credential): Dr. Bradley Byrd MD Scribe Attestation: I, Nisreen Keen, scribed for Dr. Bradley Byrd MD on 06/23/19 at 1839. Scribe Documentation Reviewed: Yes Provider Attestation: The documentation as recorded by the scribe, Nisreen Keen accurately reflects the service I personally performed and the decisions made by me, Dr. Bradley Byrd MD Status of Scribe Document: Viewed
[2019-06-23 17:34] LABS: ABS Basophils 0.1 10^3/ul (0-0.2); ABS Eosinophils 0.2 10^3/ul (0-0.6); ABS Lymphocytes 2.1 10^3/ul (1.0-4.8); ABS Monocytes 0.7 10^3/ul (0-0.8); ABS Neutrophils 5.6 10^3/ul (1.5-7.7); Eosinophil % 2.3 %; Hematocrit 42 % (35-47); Hemoglobin 13.7 g/dL (12.0-16.0); Lymphocyte % 23.8 %; Mean Corpuscular HGB Conc 33 g/dL (31-36); Mean Corpuscular Hemoglobin 29 pg (27-31); Mean Corpuscular Volume 88 fL (80-97); Mean Platelet Volume 9.1 fL (7.4-10.4); Nucleated Red Blood Cells % 0.1; Platelet Count 259 10^3/uL (150-450); Red Blood Count 4.71 10^6 /uL (3.70-4.87); Red Cell Distribution Width 16 % (10-15); White Blood Count 8.6 10^3/uL (3.5-10.8)
[2019-06-23] MEDS ORDERED: Clopidogrel TAB* 75 MG PO ONE (17:35)
[2019-06-23 17:45] LABS: INR 1.04 (0.82-1.09); Urine Appearance Clear; Urine Bilirubin Negative (Negative); Urine Blood Negative (Negative); Urine Color Straw; Urine Glucose Negative (Negative); Urine Ketones Negative (Negative); Urine Nitrite Negative (Negative); Urine Protein Negative (Negative); Urine Specific Gravity 1.005 (1.010-1.030); Urine Urobilinogen Negative (Negative)
[2019-06-23 17:52] LABS: Albumin 4.1 g/dL (3.2-5.2); Albumin/Globulin Ratio 1.2 (1-3); BUN/Creatinine Ratio 14.6 (8-20); EGFR African American 68.7 (>60); EGFR Non-African American 56.8 (>60); Globulin 3.4 g/dL (2-4); HDL Cholesterol 36.7 mg/dL; Potassium 3.8 mmol/L (3.5-5.0); Total Bilirubin 0.7 mg/dL (0.2-1.0); Total Protein 7.5 g/dL (6.4-8.9); Troponin I 0.01 ng/mL (<0.04)
--- NOTE | 2019-06-23 22:04 | HP ---
CC: Dr. Dallas Cornelius * HISTORY AND PHYSICAL: DATE OF ADMISSION: 06/23/19 PRIMARY CARE PROVIDER: Dr. Dallas Cornelius. ATTENDING PHYSICIAN: Dr. Juliano Alvarado * (dictated by ART Brock). CHIEF COMPLAINT: 1. Left eye peripheral vision loss. 2. Vertigo. HISTORY OF PRESENT ILLNESS: Ms. Hardwick is a 74-year-old female with past medical history of hypertension, hyperlipidemia, atherosclerosis, obesity, who presented to the ER today with complaints of 40 hours of left eye peripheral vision loss. She notes that about 2 days ago, she was standing in a room that was very hot, she was feeling stressed. She suddenly developed sensation of vertigo that lasted 5 to 10 minutes. She then noticed that she had lost her peripheral vision in her left eye. She had associated dizziness and was falling due to loss of balance. She denied weakness at that time. She had associated diaphoresis and generally felt unwell. The vertigo lasted 5 to 10 minutes, but she noticed that the peripheral vision loss in the left eye continued. She went to the eye doctor today. He recommended she be seen in the ER as she was suspected to have had a stroke. She denies associated dysphagia, dysarthria, focal weakness, headache, lightheadedness, dizziness, blurred vision. She has no other complaints today. In the ER, NIH stroke scale score was 1. She received a full workup which included a blood work that revealed no gross abnormalities. EKG was within normal limits with a rate of 75. 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 No hemorrhage. The patient was given clopidogrel 75 mg p.o. in the ER. The hospitalist team was asked to evaluate the patient for admission. PAST MEDICAL HISTORY: 1. Hypertension. 2. Hyperlipidemia. 3. Atherosclerosis. 4. Obesity, BMI 48.8. 5. GERD. 6. IBS. 7. Stress incontinence. 8. Anxiety, depression. 9. Obstructive sleep apnea, on CPAP. PAST SURGICAL HISTORY: 1. Cholecystectomy. 2. Bilateral hip exploratory lap. 3. Cataracts. 4. Gastric bypass. 5. Lap band with reversal. 6. Abdominoplasty. 7. Panniculectomy. 8. Left knee. HOME MEDICATIONS: 1. Allopurinol 300 mg p.o. daily. 2. Calcium citrate 1000 mg p.o. daily. 3. Cholecalciferol 5000 units p.o. daily. 4. Cyanocobalamin 5000 mcg p.o. daily. 5. Escitalopram 10 mg p.o. daily. 6. Esomeprazole 40 mg p.o. daily. 7. Gabapentin 300 mg p.o. t.i.d. 8. Hyoscyamine sulfate 0.375 mg p.o. daily p.r.n. diarrhea. 9. Lisinopril 10 mg p.o. daily. 10. Methylcellulose 1000 mg p.o. daily. 11. Mirabegron 50 mg p.o. daily. DRUG ALLERGIES: CODEINE, hallucinations; MEPERIDINE, hallucinations; METOCLOPRAMIDE, hallucinations; NSAIDs. The patient has gastric bypass. MORPHINE, hallucinations; NITROGLYCERIN, leads to syncope; STATINS, whole body feels like it is a vise. FAMILY HISTORY: Paternal grandmother with diabetes mellitus. Mother at the age of 40 with ovarian versus uterine cancer, [place]. Father had 3 MIs, at the age of 85 from [place]. No family history of CVA. SOCIAL HISTORY: The patient denies current or former use of tobacco. She does not use alcohol. She uses marijuana daily. 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 She is , lives with her spouse. She has 2 children who are out of the house. In the event that she is unable to make her own medical decisions , she has appointed her , Dennis Hardwick, to be her surrogate decision maker. REVIEW OF SYSTEMS: A 10-point of review of systems has been performed and all the pertinent positives and negatives are in the HPI. All other systems are negative. PHYSICAL EXAMINATION GENERAL: Ms. Hardwick is a well-developed, well-nourished, obese 74-year-old female who is sitting up in bed. She is asleep upon entering, but wakes easily. She is in no acute distress. VITAL SIGNS: Temperature 98.2 temporal, heart rate 79, respiratory rate 16, oxygen saturation 95% on room air, blood pressure 153/79. HEENT: Left eye hemianopia. Right eye with visual barrera grossly intact. PERRL. EOMI. Nonicteric sclerae. Hearing grossly intact. Oral mucous membranes are moist. There are no lesions. Tongue is at midline. The pharynx is clear. Palate elevates symmetrically. There is no facial asymmetry. NECK: RESPIRATORY: Symmetrical chest expansion without use of accessory muscles. Lungs are clear to auscultation bilaterally without rhonchi, wheezes or rubs. There is no digital clubbing or cyanosis. CARDIOVASCULAR: Regular rate and rhythm with S1, S2 present without murmurs, rubs, clicks, or gallops. There is no JVD. There is no peripheral edema. Radial and pedal pulses are palpable. ABDOMEN: Obese. Bowels sounds noted in all quadrants. The abdomen is soft. There is no tenderness to palpation. MUSCULOSKELETAL: Full range of motion without pain or deformities. NEUROLOGIC: The patient is awake. She is alert and oriented x3. Cranial nerves are grossly intact. She is able to move all of her extremities with a motor strength of 5/5 in bilateral upper and lower extremities. Boat Carpenter Mechanic strength is equal. Peripheral sensation intact. She has a steady gait. There are no impairments. DIAGNOSTIC STUDIES/LAB DATA: Labs without gross abnormality. EKG: Rate 75. Normal sinus rhythm. CT brain: Impression: Early subacute infarct of the right SEWER PIPE SORTER territory with only mild local mass effect. There is no associated hemorrhage. Mild chronic small vessel scanner disease is likely. ASSESSMENT AND PLAN: Ms. aHrdwick is a 74-year-old female with past medical history of hypertension, hyperlipidemia, atherosclerosis, obesity, who presented to the ER with complaints of a transient episode of vertigo that lasted 5 to 10 minutes followed by left eye hemianopia times approximately 40 hours. She was found to have a subacute infarct of the right posterior cerebral artery on CT. She will be admitted on observation for: 1. Cerebrovascular accident: CT brain reveals early subacute infarct in right posterior cerebral artery territory. The patient was given Plavix in the ER. This medication will be continued. She will be admitted to the telemetry floor. Neuro checks will be ordered q.4 hours. Echo with bubble study has been ordered. Neuro consult has been ordered and Dr. Puga has been notified. He requests MRI of the brain, MRA of the head and neck, which have been ordered. Dysphagia screening, physical therapy, occupational therapy and speech therapy have all been ordered. Hemoglobin A1c and lipid panel are pending. 2. Hypertension: Continue lisinopril. 3. Hyperlipidemia: The patient has history of extreme illness on statin medication and is currently refusing statins. Lipid panel is pending. 4. Gastroesophageal reflux disease. Continue esomeprazole. 5. Irritable bowel syndrome: Continue hyoscyamine, methylcellulose. 6. Stress incontinence. Continue Myrbetriq. 7. Gout: Continue allopurinol. 8. Anxiety, depression: Continue Lexapro. 9. Obstructive sleep apnea: Continue CPAP. 10. DVT prophylaxis: According to the DVT Risk Assessment, the patient scores 3 placing her at high risk. She will be started on heparin. 11. Code status: Full code. TIME SPENT: Approximately 60 minutes was spent on this admission, greater than half that time was spent [id number] with the patient obtaining history and performing physical and reviewing the plan of care. The case has been reviewed with my attending, Dr. Alvarado, who is in agreement with the plan of care. ART BROCK [id number]/CPS #: [id number] SARKIS
[2019-06-23] MEDS: Heparin VIAL(*) 5000 UNITS/ML VIAL (FIVE THOUSAND) SUBCUT SCH (22:44)
[2019-06-24] MEDS: Heparin VIAL(*) 5000 UNITS/ML VIAL (FIVE THOUSAND) SUBCUT SCH ×3 (07:28→22:26)
[2019-06-24] MEDS ORDERED: METHYLCELLULOSE 1000 MG PO SCH (09:00)
[2019-06-24] MEDS ORDERED: Mirabegron (NF) 25 MG TAB PO SCH (09:00)
[2019-06-24] MEDS: Pantoprazole TAB * 40 MG TAB PO SCH (10:56)
[2019-06-24] MEDS: Allopurinol TAB* 300 MG PO SCH (10:56)
[2019-06-24] MEDS: Lisinopril TAB* 10 MG PO SCH (10:56)
[2019-06-24] MEDS: Gabapentin CAP(*) 300 MG PO SCH ×3 (10:56→22:26)
[2019-06-24] MEDS: Clopidogrel TAB* 75 MG PO SCH (10:57)
[2019-06-24] MEDS: Escitalopram * 10 MG TAB PO SCH (10:57)
--- NOTE | 2019-06-24 11:02 | ECHO ---
*[facility]* [place] [address] Fax #: [phone] Limited Transthoracic Echocardiogram Patient: Radha Hardwick : 1945 Study Date: 06/24/2019 Age: 74 Gender: F HR: 73 bpm Height: 59.8 in /152 cm BSA: 2.28 m^2 Weight: 253 lb /115 kg BMI: 49.8 kg/m^2 *Clinical Trials Manager: * Yi Chamorro [facility] *Referring Physician: * Asya ReganReading Physician: * Tariq Noriega MD Indications: TIA. History: Functional status: Following treatment plan for sleep apnea. Risk factors: Hypertension. Obese. Hyperlipidemia. Daily marijuana use. Conclusions Summary: Atrial septum: A PFO is not demonstrated by color Doppler or agitated saline contrast. Negative Bubble Study. Images 3-5. Recommendations: Limited study only, full echocardiogram completed 06/14/2019. Study data: Transthoracic echocardiogram, limited study. Procedure: Transthoracic echocardiography was performed. Image quality was fair. A bubble study was performed. Location: Bedside. Patient status: Inpatient. Patient room number: 434. Rhythm: Normal sinus rhythm. Findings Atrial septum: A PFO is not demonstrated by color Doppler or agitated saline contrast. Negative Bubble Study. Images 3-5. Prepared and electronically signed by Tariq Noriega MD 06/24/2019 11:02
--- NOTE | 2019-06-24 13:57 | CONS ---
NEUROLOGY CONSULTATION REPORT: DATE OF CONSULT: 06/24/19 CONSULTING PROVIDER: ART Brock REASON FOR CONSULT: Stroke. CHIEF COMPLAINT: "Can't see on the left side and episode of vertigo." HISTORY OF PRESENT ILLNESS: Ms. Hardwick is a 74-year-old right-handed female who has history of obstructive sleep apnea, dyslipidemia, obesity, hypertension, who presented to [facility] on 06/23/19 with symptoms of left-sided visual loss. The patient had an attack of vertigo in April 2019. She described symptoms of dizziness and had a fall. The symptoms lasted a few days and completely abated. She had a second attack of vertigo on Friday evening when she was in [place] visiting her sister. The symptoms started at 8 p.m. that night. She was completely normal at 7:45 p.m. The vertigo resolved, but as a result of this event she developed left-sided visual loss. It was extremely stressful for her that she had her drive all the way back home because she could not see out of the left side. She went and saw Dr. Barragan yesterday and she was informed that she had a stroke. She came immediately to the ER for further evaluation. The patient's NIH stroke scale is 2 for complete homonymous hemianopsia on the left side. She had a CT of the head completed on 06/23/19 that showed early subacute infarct of the right NURSING HOME SOCIAL WORKER territory with mild local mass-effect. There is no associated hemorrhage. She had an MRI of the brain completed on 06/23/19 that showed an 5.7 x 2.1 cm of increased diffusion-weighted signal in the right occipital and posterior parietal lobe corresponding to subacute- appearing infarct with no evidence of hemorrhage. An MRA of the head and neck completed on 06/23/19 showed nonvisualization of the P2 and P3 branches of the right posterior cerebral artery consistent with occlusion, very slow flow. No dissection or aneurysms were noted. There is no evidence of atherosclerotic disease in the neck. The patient had a transthoracic echo completed on 06/23/19 that reported negative bubble study; the echo study was limited. PAST MEDICAL HISTORY: Cataract surgery, obesity, dyslipidemia, gout, obstructive sleep apnea, carpal tunnel syndrome, irritable bowel syndrome. The patient has peripheral vascular disease and history of gastric bypass surgery. MEDICATIONS: 1. Gabapentin 300 mg p.o. t.i.d. 2. Lisinopril 10 mg p.o. in the morning. 3. Escitalopram 10 mg p.o. in the morning. 4. Mirabegron 50 mg p.o. daily. 5. Hyoscyamine 0.375 mg p.o. daily. 6. Vitamin D3. 7. Esomeprazole. 8. Calcium. 9. Allopurinol 300 mg daily. 10. Cyanocobalamin 5000 mcg p.o. daily. 11. Methylcellulose 1000 mg p.o. daily. Please note that the patient was taking Plavix 75 mg daily, but stopped 1 month ago. She stopped due to rectal bleeding from a hemorrhoid. She described the bleeding as bright red blood. ALLERGIES: Her allergy list include CODEINE, MEPERIDINE, METOCLOPRAMIDE, MORPHINE, NITROGLYCERIN, and STATINS. FAMILY HISTORY: Her father at age 85 due to a myocardial infarction. Mother at age 40 unfortunately due to cancer and heart attack. SOCIAL HISTORY: The patient is retired. She smokes marijuana daily. She denied any tobacco use. She quit smoking 4 years ago. REVIEW OF SYSTEMS: A 14-point review of systems was obtained and otherwise negative except for what is mentioned in the HPI. PHYSICAL EXAM: Vitals: Temperature of 97.3, pulse of 71, respiratory rate of 16, oxygen saturation 97, heart rate of 146/90. General: Well-nourished, well - developed obese female in no acute distress. Head: Atraumatic and normo- cephalic without any obvious abnormality. Neck: Supple and symmetrical with no carotid bruit. Eyes: Conjunctiva/corneas are clear with no laceration. Cardiovascular: Regular rate and rhythm with normal S1, S2. Respiratory: Clear to auscultation bilaterally with no wheezing or rhonchi. Extremities: Normal range of motion with no cyanosis or edema. Skin: No skin lesions or laceration. Psych: Affect is broad, normal mood. Easy to establish rapport. Neurological Examination: Mental status: Awake, alert, oriented to person, place, time, general circumstances. Speech and language including expression, repetition, and comprehension were assessed and found to be normal. Cranial Nerves: Pupils equal, round, reactive to light; extraocular muscles are intact ; she has complete left homonymous hemianopsia. Normal sensation to the face, no facial asymmetry. Tongue is symmetrical midline with no atrophy or fasciculation. Motor examination: 5/5 strength in the upper and lower extremities symmetrically bilaterally. No pronator drift. Sensation is intact to light touch throughout. Normal vibration at the medial malleolus bilaterally. Coordination: Normal auhoef-ic-ioxk and [id number]-pv-[id number] testing. Reflexes 2+ in the upper extremities and trace in the ankles bilaterally. Gait: Wide-based, normal stance, no ataxia. ASSESSMENT: Ms. Radha Hardwick is a 74-year-old female with history of hypertension, dyslipidemia, obstructive sleep apnea, peripheral arterial disease , who stopped taking Plavix 1 month ago due to suspected hemorrhoid related bleeding, who presented to [facility] for a 2-day history of visual disturbance. The patient was found to have a right posterior cerebral artery vascular territory ischemic infarction. 1. Acute right posterior cerebral artery vascular territory ischemic infarction - etiology is unclear. Could be cryptogenic. However, the patient has significant risk factors for stroke which include: age, obstructive sleep apnea , obesity, hypertension, dyslipidemia, and family history of cardiovascular disease. Other etiology include thrombotic disease. She may have had symptoms approximately 2 months ago that are suggestive of a TIA. This would suggest again there is a thrombus at the distal P2 and P3 vascular distribution on the right, hence causing the stroke at this time after she stopped the Plavix therapy. NIH stroke scale is 2. The patient is not a candidate for IV TPA or mechanical thrombectomy given that she would not meet the timeframe as she presented outside the window for any interventions. 2. History of suspected hemorrhoid-related bleeding while on Plavix. 3. Obstructive sleep apnea. 4. Dyslipidemia, intolerant to statin therapy. The patient was never placed on low intensity statin therapy in the past. Given her elevated LDL, I recommend trialing pravastatin 40 mg nightly. The patient was amenable to this. 5. Hypertension. Allow permissive hypertension. RECOMMENDATION: Neuro checks every 4 hours, allow permissive hypertension, consult PT/OT/COMPLIANCE VICE PRESIDENT to evaluate and treat, pending a complete transthoracic echo. If unable to be done, we may need a EJ. She will also may need a loop recorder to be placed as an outpatient if we cannot find any possible source for her stroke. DVT prophylaxis, early ambulation and PCDs. We discussed fall precautions. We discussed driving restriction; she cannot drive at this time until cleared by her compliance administrator. I will continue to follow. [id number]/[facility] #: [id number] SARKIS
[2019-06-24] MEDS ORDERED: Acetaminophen TAB* 325 MG PO PRN (14:08)
[2019-06-24] MEDS ORDERED: Calcium Polycarbophil TAB* 625 MG PO SCH (15:27)
--- NOTE | 2019-06-24 16:57 | PN ---
Subjective Date of Service: 06/24/19 Interval History: Pt is feeling well today, and states she is regaining some peripheral vision in the left eye. She continues to deny weakness. She had a headache earlier, but this was relieved with Tylenol. She has no other complaints today. Pt notes extensive allergies to statins, stating that they cause muscle aches. Talked with PCP, Ashli, who notes patient has tried atorvastatin, zetia, niaspan, lovaza, all with adverse effects. She is on nexium, but has switched to protonix while on plavix. She will transition to protonix again. Objective Active Medications: Acetaminophen (Tylenol Tab*) 650 mg PO Q6H PRN Allopurinol (Zyloprim Tab*) 300 mg PO DAILY JIM Calcium Polycarbophil (Fibercon Tab*) 1,000 mg PO DAILY JIM Clopidogrel Bisulfate (Plavix Tab*) 75 mg PO DAILY JIM Escitalopram Oxalate (Lexapro *) 10 mg PO QAM JIM Gabapentin (Neurontin Cap(*)) 300 mg PO TID JIM Heparin Sodium (Porcine) (Heparin Vial(*)) 5,000 units SUBCUT Q8HR JIM Lisinopril (Prinivil Tab*) 10 mg PO QAM JIM Mirabegron (Myrbetriq (Nf)) 50 mg PO DAILY JIM Pantoprazole Sodium (Protonix Tab*) 40 mg PO DAILY JIM; Protocol Vital Signs: Temp Pulse Resp BP Pulse Ox 98.4 F 73 16 146/61 95 06/24/19 15:35 06/24/19 15:35 06/24/19 17:28 06/24/19 15:35 06/24/19 15:35 Oxygen Devices in Use Now: None Appearance: Pt sitting up in bed. No acute distress. Resting comfortably. Eyes: No Scleral Icterus, PERRLA, - - Some increase in peripheral vision of L eye. Ears/Nose/Mouth/Throat: NL Teeth, Lips, Gums, Clear Oropharnyx, Mucous Membranes Moist Neck: NL Appearance and Movements; NL JVP, Trachea Midline Respiratory: Symmetrical Chest Expansion and Respiratory Effort, Clear to Auscultation Cardiovascular: RRR, No Edema Abdominal: NL Sounds; No Tenderness; No Distention, No Hepatosplenomegaly Extremities: No Edema, No Clubbing, Cyanosis Neurological: Alert and Oriented x 3, NL Sensation, NL Muscle Strength and Tone Result Diagrams: 06/23/19 17:24 06/23/19 17:24 Assess/Plan/Problems-Billing Assessment: 74 PMHx HTn, HLD, atherosclerosis, HIRAM presents with L eye hemianopia and found to have R BUSINESS CONTINUITY STRATEGY DIRECTOR infarct. - Patient Problems (1) CVA (cerebral vascular accident) Comment: -Pt presents with transient episode of vertigo followed by continued L eye hemianopia -Imaging reveals R BUSINESS CONTINUITY STRATEGY DIRECTOR infarct -Neurology consulting -Continue neuro checks, tele -Echo bubble study negative -Continue PT/OT/ST -LDL elevated 122; pt cannot tolerate statins, zetia; see HLD below for further details -HA1c 6.2 -Continue Plavix (2) Hyperlipidemia Comment: -Talked with PCP, Ashli, who notes patient has tried atorvastatin, zetia, niaspan, lovaza, all with adverse effects -We will order repatha outpatient, as she has failed other treatments -Work with PCP, Cardiology for approval (3) GERD (gastroesophageal reflux disease) Comment: -Pt on nexium, which has interaction with plavix -Switch to pantoprazole and continue in outpatient setting (4) Hypertension Comment: -Continue lisinopril (5) IBS (irritable bowel syndrome) Comment: -Hyoscyamine, methylcellulose (6) Stress incontinence Comment: -Myrebetriq (7) HIRAM (obstructive sleep apnea) Comment: -CPAP (8) Anxiety and depression Comment: -Lexapro (9) DVT prophylaxis Comment: -Heparin (10) Full code status Status and Disposition: Observation. Discharge when stable.
[2019-06-25] MEDS: Heparin VIAL(*) 5000 UNITS/ML VIAL (FIVE THOUSAND) SUBCUT SCH (06:09)
[2019-06-25] MEDS ORDERED: PTO:Mirabegron (NF) 50 MG TAB PO SCH (09:00)
[2019-06-25] MEDS: Allopurinol TAB* 300 MG PO SCH (09:50)
[2019-06-25] MEDS: Escitalopram * 10 MG TAB PO SCH (09:50)
[2019-06-25] MEDS: Gabapentin CAP(*) 300 MG PO SCH (09:51)
[2019-06-25] MEDS: Pantoprazole TAB * 40 MG TAB PO SCH (09:51)
[2019-06-25] MEDS: Lisinopril TAB* 10 MG PO SCH (09:51)
[2019-06-25] MEDS: Clopidogrel TAB* 75 MG PO SCH (09:51)
[2019-06-25 12:43] VITALS: BP 137/62
--- NOTE | 2019-06-25 13:16 | PN ---
Subjective Date of Service: 06/25/19 Length of Stay: 2 Days Neurology is following for stroke. Interval History: She is worried about her stroke and obesity. She is eager to find some help. She still has visual deficits on the left. She knows not to be driving after this. I reviewed her 2D Echo with Asya. There is a finding of "severe NCC" which I will defer to her track inspector, Dr. Schwartz. She denied any headache or visual disturbance. She denied any dizziness or palpitation. She is refusing statin therapy due to the concerning feeling of "trapped." Labs, Imaging, and other diagnostic testing: LDL 122 Cholesterol: 213 Hemoglobin A1c: 6.2 CT head without contrast 06/23/2019: early subacute infarct of the right CARDIOLOGY FELLOW territory with only mild local mass effect. MRI brain/ MRA head/ MRA neck on 06/23/2019: 5.7 x 2.1 cm of abnormal increased signal on diffusion weighted imaging in the right occipital and posterior parietal lobe corresponding to the subacute appearing infarction. Nonvisualization of the P2 and P3 branches of the right CARDIOLOGY FELLOW. No dissection, aneurysm, or flow limiting stenosis. Review of Systems: Denied CP, SOB, or palpitations. Objective Active Medications: Acetaminophen (Tylenol Tab*) 650 mg PO Q6H PRN PRN Reason: PAIN HEADACHE W/ PAIN 1-3 Last Admin: 06/24/19 15:07 Dose: 650 mg Allopurinol (Zyloprim Tab*) 300 mg PO DAILY [facility] Last Admin: 06/25/19 09:50 Dose: 300 mg Calcium Polycarbophil (Fibercon Tab*) 1,000 mg PO DAILY [facility] Last Admin: 06/25/19 09:52 Dose: 1,000 mg Clopidogrel Bisulfate (Plavix Tab*) 75 mg PO DAILY [facility] Last Admin: 06/25/19 09:51 Dose: 75 mg Escitalopram Oxalate (Lexapro *) 10 mg PO QAM [facility] Last Admin: 06/25/19 09:50 Dose: 10 mg Gabapentin (Neurontin Cap(*)) 300 mg PO TID [facility] Last Admin: 06/25/19 09:51 Dose: 300 mg Heparin Sodium (Porcine) (Heparin Vial(*)) 5,000 units SUBCUT Q8HR [facility] Last Admin: 06/25/19 06:09 Dose: 5,000 units Lisinopril (Prinivil Tab*) 10 mg PO QAM [facility] Last Admin: 06/25/19 09:51 Dose: 10 mg Mirabegron (Myrbetriq (Nf)) 50 mg PO DAILY [facility] Last Admin: 06/25/19 09:53 Dose: 50 mg Pantoprazole Sodium (Protonix Tab*) 40 mg PO DAILY [facility]; Protocol Last Admin: 06/25/19 09:51 Dose: 40 mg Vital Signs 06/25/19 06/25/19 06/25/19 08:00 09:51 11:50 Temperature 97.4 F Pulse Rate 70 Respiratory 20 18 20 Rate Blood Pressure 137/62 (mmHg) O2 Sat by Pulse 96 Oximetry 06/25/19 12:40 Temperature Pulse Rate Respiratory 18 Rate Blood Pressure (mmHg) O2 Sat by Pulse Oximetry Intake and Output Last 24 Hours 06/23/19 06/24/19 06/25/19 06/26/19 06:59 06:59 06:59 06:59 Intake Total 0 840 360 Output Total 0 Balance 0 840 360 Weight 253 lb 12.8 oz Intake: Oral 0 840 360 Output: Urine 0 Other: # Bowel Movements 0 # Voids 0 Oxygen Devices in Use Now: None Neurology Exam: General: Well nourished, well developed, and in no acute distress. Obese female. HEENT: Normocephelic/atraumatic, sclera anicteric, mucous membranes moist Neck: Supple Chest: Clear to auscultation bilaterally Cardiovascular: Regular rate and rhythm without murmurs, rubs, gallops Extremities: No clubbing, cyanosis, or edema Neurological Findings: Awake, alert, and oriented to person, place, and time. Speech: fluent without dysarthria, repetition intact Cranial Nerve: left homonomous hemianopsia. PERRL, EOM-I. No facial asymmetry. Motor: s/s throughout, proximal and distal extremities x4 tone/bulk normal Sensation: intact to LT/PP bilaterally upper and lower extremities Deep Tendon Reflex: 1+ symmetric in the upper/lower extremities, Babinski - down going Finger to nose, rapid alternating movements intact without tremor, no dysdiadochokinesia Gait: intact with good arm swing and stride Result Diagrams: 06/23/19 17:24 06/23/19 17:24 Assessment/Plan 1. Acute right CARDIOLOGY FELLOW vascular territory ischemic stroke- most likely due to P2-P3 thrombosis due to her risk factors of: HTN, DMII, Dysl, obesity, and HIRAM. Need to rule out A.fib. Recommendations: - We will follow-up with the patient in 6 [address] [facility] Neurology - She was counseled regarding driving restriction until cleared by her family assessment worker - Discuss placing a loop recording as an outpatient. She follows up with Dr. Schwartz. - Plavix 75 mg daily (did not do DAPT due to the size of the stroke and increase risk of ICH) - Declined statin or Zetia therapy due to her risk of myalgias and other complications. She would be a good candidate for Repatha. - Discussed fall precautions - Discussed the importance in exercising and dieting. I will sign off. Please contact us for any questions or concerns.
--- NOTE | 2019-06-25 14:55 | DS ---
CC: Dallas Cornelius MD; Enrico Tran MD * DISCHARGE SUMMARY: DATE OF ADMISSION: 06/23/19 DATE OF DISCHARGE: 06/25/19 PRIMARY CARE PROVIDER: Dallas Cornelius MD NEUROLOGIST: Enrico rTan MD ATTENDING PHYSICIAN: Carmina Ayers MD * (dictated by ART Cui ). PRIMARY DIAGNOSES: 1. Posterior cerebral artery cerebrovascular accident. 2. Hyperlipidemia. SECONDARY DIAGNOSES: 1. Hypertension. 2. Hyperlipidemia. 3. Obesity, body mass index 48.8. 4. Atherosclerosis. 5. Obstructive sleep apnea, CPAP compliant. 6. Gastroesophageal reflux disease. 7. Irritable bowel syndrome. 8. Stress incontinence. 9. Anxiety, depression. CONSULTATIONS WHILE IN THE HOSPITAL: Neurology. Assessment and recommendations : The patient was found to have a right posterior cerebral artery vascular territory ischemic infarction. Neuro checks q.4 hours, allow permissive hypertension, consult PT/OT/HUMAN [employer]OURCES TEAM MEMBER to evaluate and treat pending TTE. Discussed driving restrictions. She cannot drive at this time until cleared by pack worker. STUDIES WHILE IN THE HOSPITAL: 1. Brain CT. Impression: Early subacute infarct of the right LAB SUPPORT TECH territory with only mild local mass effect. There is no associated hemorrhage. Mild chronic small vessel scanner disease is likely. 2. Brain MRI. Impression: 5.7 x 2.1 cm area of abnormal increased signal on diffusion weighted imaging in the right occipital and posterior parietal lobe corresponding to the subacute appearing infarction diagnosed on earlier noncontrast head CT. No hemorrhage, mass, or mass effect. Some of this appearance is T2 shine- through. Currently, there is still some decreased signal on ADC imaging here consistent with late acute to early subacute ischemic event. 3. Head MRA. Impression: Subacute appearing infarction noted in right LAB SUPPORT TECH distribution on earlier noncontrast head CT, nonvisualization of the P2 and P3 branches of the right posterior cerebral artery consistent with occlusion or very slow flow. No dissection, aneurysm, or flow-limiting stenosis seen elsewhere. 4. MRA neck. Impression: As above. 5. Transthoracic echocardiogram. Conclusion: A PFO not demonstrated by color Doppler or agitated saline contrast, negative bubble study. DISCHARGE MEDICATIONS: Home medications: 1. Allopurinol 300 mg p.o. daily. 2. Calcium citrate 1000 mg p.o. daily. 3. Cholecalciferol 5000 units p.o. daily. 4. Cyanocobalamin 5000 mcg p.o. daily. 5. Escitalopram 10 mg p.o. daily. 6. Gabapentin 300 mg p.o. t.i.d. 7. Hyoscyamine sulfate 0.375 mg p.o. daily p.r.n. diarrhea. 8. Lisinopril 10 mg p.o. daily. 9. Methylcellulose 1000 mg p.o. daily. 10. Mirabegron 50 mg p.o. daily. New home medications: 1. Pantoprazole 40 mg p.o. daily. 2. Evolocumab 140 mg subcu q.14 days. 3. Clopidogrel 75 mg p.o. daily. Discontinued home medications: Nexium. HISTORY OF PRESENT ILLNESS/HOSPITAL COURSE: Ms. Hardwick is a 74-year-old female with past medical history of hypertension, hyperlipidemia, obesity, atherosclerosis, obstructive sleep apnea who presented to the ER on 06/23/19 after experiencing an episode of vertigo followed by left eye hemianopia times approximately 40 hours. She presented due to this left eye peripheral vision loss. For full and complete details, please see the history and physical dictated by ART Cui, but in short, the patient presents with the above symptoms and is found to have a subacute infarct of the right LAB SUPPORT TECH on CT as well as MRI and MRA imaging. The patient was admitted to the hospital. Neurology was consulted and recommended continuation of Plavix. They recommended statin therapy, although the patient is noted to have intolerance to multiple statins. She has tried atorvastatin, Zetia, Niaspan, and Lovaza in the past, all of which she has been unable to tolerate. It is recommended that she start Repatha as outpatient. She may need referral for this from Cardiology or primary care provider, but the medication has been ordered. The patient worked with Physical Therapy, Occupational Therapy, Speech Language Pathology. She had no deficits beyond the left eye hemianopia which slowly improved throughout her stay. She is still experiencing some loss of peripheral vision in the left eye at the time of discharge. Transthoracic echocardiogram was ordered. The patient was noted to have had an echo at the beginning of this month which was within normal limits. A limited study was performed and revealed negative bubble study. The patient's LDL was noted to be 122. Hemoglobin A1c was 6.2. We discussed dietary changes for lowering LDL and managing elevated hemoglobin A1c. The patient will be continued on Plavix as outpatient. She will change from Nexium to Protonix in the outpatient setting due to continuation of Plavix. She is agreeable to this. Discussion was had with primary care provider about statin use. He notes that she has had multiple trials of statins as well as Zetia, Niaspan, and Lovaza, all of which she failed. Recommendation is for Repatha as outpatient for management of elevated LDL cholesterol. Dr. Puga, Neurology, recommends loop recorder in the outpatient setting. The patient will follow with Dr. Schwartz for this. Driving has been restricted at this time. She will follow with her pack worker. At the time of discharge, the patient has no complaints. She continues to experience some left peripheral vision loss, although she has some improvement in peripheral vision of the left eye. She was experiencing visual symptoms yesterday such as flashes of light, but she notes that she has not experienced this today. She denies dizziness, lightheadedness, vertigo, headache, dysphagia, dysarthria, chest pain, shortness of breath, cough, fever, abdominal pain, nausea, vomiting, diarrhea. She does note that she has some mild constipation right now. She has no myalgias, arthralgias, or weakness in the joints. Ms. Hardwick is stable for discharge to home. REVIEW OF SYSTEMS: A 10-point of review of systems has been performed and all the pertinent positives and negatives are in the HPI. All other systems are negative. PHYSICAL EXAMINATION: Vital signs are temperature 97.4 oral, heart rate 70, respiratory rate 18, oxygen saturation 96% on room air, blood pressure 137/62. General: Ms. Hardwick is a well-developed, well-nourished, obese 74-year-old female who is lying on her side in bed. She appears to be in no acute distress. She is resting comfortably. HEENT: Right eye visual field grossly intact. The patient has some left eye peripheral vision loss noted. EOMI. Nonicteric sclerae. Hearing grossly intact. Oral mucous membranes are moist. There are no lesions. Face is symmetrical. Tongue is at midline. Pharynx is clear. Palate elevates symmetrically. Cardiovascular: Regular rate and rhythm with S1 and S2 present without murmurs, rubs, clicks, or gallops. There is no JVD. There is no peripheral edema. Radial and pedal pulses are palpable. Pulmonary: Symmetrical chest expansion without use of accessory muscles. Lungs are clear to auscultation bilaterally without rhonchi, wheezes, or rubs. No digital clubbing or cyanosis. Abdomen: Obese bowel sounds in all quadrants. The abdomen is soft. There is no tenderness to palpation. Musculoskeletal: Full range of motion without pain or deformities. Neuro: The patient is awake. She is alert and oriented x3. Cranial nerves grossly intact. There is some left eye hemianopia still present residually. The patient is able to move all of her extremities with motor strength 4/4 bilaterally that is equal. Communication Spec strength is equal. Sensation is intact. DISCHARGE PLAN: Ms. Hardwick is stable for discharge to home. CONDITION: Good. DIET: Heart healthy. ACTIVITY: As tolerated. NEW HOME MEDICATIONS: 1. Repatha injection q. 2 weeks ordered. May need prior authorization from insurance. Please work with PCP, Cardiology for approval. 2. Plavix 75 mg p.o. daily. 3. Discontinue Nexium and start pantoprazole 40 mg p.o. daily. EDUCATION: 1. Follow up with primary care provider in 4 to 7 days. Discussed medication changes, Repatha. 2. Follow up with Cardiology in 1 to 2 weeks for a loop recorder placement. Also discuss Repatha. 3. Follow up with Neurology in 4 to 6 weeks. 4. Follow up with pack worker. 5. Return to the ER or nearest hospital if you experience shortness of breath, chest discomfort or pain, high fevers, chills, night sweats, dizziness, lightheadedness, loss of consciousness, vision changes, worsening of peripheral vision loss, vertigo, or any other worrisome signs or symptoms. This is a summarized report of a complex medical history and hospital stay. For further details, please see the entire medical record. TIME SPENT: Approximately 35 minutes was spent on this discharge, greater than half that time was spent [id number] with the patient discussing discharging plans and instructions. ART ALEMAN [id number]/[facility] #: [id number] SARKIS
== END 2019-06-25 14:08 | disposition home or self-care (01) ==
LOC: ED 15:29 → MEDTELE 18:43
PROVIDERS: ADMIT Internal Medicine; ATTEND Internal Medicine
DX: I63.9 Cerebral infarction, unspecified (principal); E78.5 Hyperlipidemia, unspecified; I10 Essential (primary) hypertension; E66.9 Obesity, unspecified; Z68.42 Body mass index [BMI] 45.0-49.9, adult; I70.90 Unspecified atherosclerosis; G47.33 Obstructive sleep apnea (adult) (pediatric); K21.9 Gastro-esophageal reflux disease without esophagitis; K58.9 Irritable bowel syndrome, unspecified; N39.3 Stress incontinence (female) (male); F41.9 Anxiety disorder, unspecified; F32.9 Major depressive disorder, single episode, unspecified; Z79.899 Other long term (current) drug therapy; R42 Dizziness and giddiness
CPT/HCPCS: 36415; 70450; 70544; 70547; 70551; 80053; 80061; 81003; 83036; 83605; 84484; 85025; 85610; 93005; 93308; 94660; 96372; 97530; 99283; A9270-GY; G0378; G8978-GP-CH; G8979-GP-CH; G8980-GP-CH; G8987-GO-CI; G8988-GO-CI; J1644

== ENCOUNTER 2021-05-10 11:47 | Observation (INO) ==
[2021-05-10] MEDS ORDERED: Diltiazem IV push/loading dose 5 MG/ML 5 ML vial (25 mg) IV SLOW PU ONE (12:47)
[2021-05-10 13:24] LABS: ABS Basophils 0.1 10^3/ul (0-0.2); ABS Eosinophils 0.1 10^3/ul (0-0.6); ABS Lymphocytes 1.8 10^3/ul (1.0-4.8); ABS Monocytes 1.2 10^3/ul (0-0.8); ABS Neutrophils 6.4 10^3/ul (1.5-7.7); Eosinophil % 0.5 %; Hematocrit 43 % (35-47); Hemoglobin 14.1 g/dL (12.0-16.0); Lymphocyte % 18.7 %; Mean Corpuscular HGB Conc 33 g/dL (31-36); Mean Corpuscular Hemoglobin 28 pg (27-31); Mean Corpuscular Volume 84 fL (80-97); Mean Platelet Volume 8.9 fL (7.4-10.4); Nucleated Red Blood Cells % 0.1; Platelet Count 323 10^3/uL (150-450); Red Cell Distribution Width 17 % (10-15); White Blood Count 9.6 10^3/uL (3.5-10.8)
[2021-05-10 13:46] LABS: ALT 19 U/L (7-52); AST 17 U/L (13-39); Albumin 4.1 g/dL (3.2-5.2); Albumin/Globulin Ratio 1.1 (1-3); Alkaline Phosphatase 72 U/L (35-149); Anion Gap 9 mmol/L (2-11); Blood Urea Nitrogen 29 mg/dL (6-24); CO2 Carbon Dioxide 21 mmol/L (22-32); Calcium 10.9 mg/dL (8.6-10.3); Chloride 106 mmol/L (101-111); EGFR African American 50.4 (>60); EGFR Non-African American 41.7 (>60); Globulin 3.7 g/dL (2-4); Glucose 126 mg/dL (70-100); Magnesium 1.5 mg/dL (1.9-2.7); Potassium 4.1 mmol/L (3.5-5.0); Sodium 136 mmol/L (135-145); Total Protein 7.8 g/dL (6.4-8.9)
[2021-05-10] MEDS ORDERED: Magnesium Sulfate 2 gm BAG 2 GM/50 ML BAG IVPB ONE ×2 (13:50→15:33)
[2021-05-10] MEDS ORDERED: Lactated Ringers 500 ml BAG 500 ML IV ONE (13:51)
[2021-05-10] MEDS ORDERED: Diltiazem (ADVAN VIAL) 100 MG/100 ML ADDV.BAG IV SCH (14:00)
[2021-05-10 14:03] LABS: TSH Ultra Thyroid Stim Horm 1.94 mcIU/mL (0.34-5.60)
[2021-05-10] MEDS ORDERED: Magnesium Sulfate IV 1GM/100ML 1 GM/100 ML BAG IV ONE (14:13)
[2021-05-10] MEDS ORDERED: Lactated Ringers 1000 ml BAG IV.FLUID IV ONE (15:26)
[2021-05-10 16:12] LABS: Troponin I 0.06 ng/mL (<0.03)
[2021-05-10] MEDS ORDERED: NS 0.9% 1000 ml BAG 1,000 ML IV ONE (16:38)
[2021-05-10 18:30] LABS: Troponin I 0.05 ng/mL (<0.03)
[2021-05-10] MEDS: NFT: ICOSAPENT ETHYL 1 GM CAPSULE (NF) PO SCH (23:25)
[2021-05-10 23:42] LABS: Troponin I 0.05 ng/mL (<0.03)
[2021-05-10 23:59] LABS: Magnesium 1.8 mg/dL (1.9-2.7)
[2021-05-11] MEDS ORDERED: Magnesium Sulfate IV 1GM/100ML 1 GM/100 ML BAG IV ONE (00:07)
[2021-05-11] MEDS ORDERED: MIRABEGRON 50 MG PO ONE (02:00)
[2021-05-11] MEDS ORDERED: HYOSCYAMINE 0.375 MG PO ONE (02:00)
[2021-05-11] MEDS: NFT: Mirabegron 25 mg ER TAB (NF) PO SCH ×2 (02:24→18:08)
[2021-05-11] MEDS: HYOSCYAMINE 0.375 MG PO SCH ×3 (02:24→20:59)
[2021-05-11 06:06] LABS: ABS Basophils 0.1 10^3/ul (0-0.2); ABS Eosinophils 0.1 10^3/ul (0-0.6); ABS Lymphocytes 1.9 10^3/ul (1.0-4.8); ABS Monocytes 0.9 10^3/ul (0-0.8); Hematocrit 38 % (35-47); Hemoglobin 12.4 g/dL (12.0-16.0); Lymphocyte % 23.6 %; Mean Corpuscular HGB Conc 33 g/dL (31-36); Mean Corpuscular Hemoglobin 28 pg (27-31); Mean Corpuscular Volume 84 fL (80-97); Mean Platelet Volume 8.8 fL (7.4-10.4); Nucleated Red Blood Cells % 0.1; Platelet Count 273 10^3/uL (150-450); Red Blood Count 4.49 10^6 /uL (3.70-4.87); Red Cell Distribution Width 17 % (10-15); White Blood Count 7.9 10^3/uL (3.5-10.8)
[2021-05-11 06:13] LABS: Magnesium 1.9 mg/dL (1.9-2.7); Potassium 4.1 mmol/L (3.5-5.0)
[2021-05-11 06:19] LABS: EGFR African American 55.5 (>60); EGFR Non-African American 45.9 (>60)
[2021-05-11] MEDS: NFT: ICOSAPENT ETHYL 1 GM CAPSULE (NF) PO SCH ×2 (08:52→20:59)
[2021-05-12 07:56] VITALS: BP 133/73
[2021-05-12] MEDS: NFT: ICOSAPENT ETHYL 1 GM CAPSULE (NF) PO SCH (09:46)
[2021-05-12] MEDS: HYOSCYAMINE 0.375 MG PO SCH (09:46)
== END 2021-05-12 13:30 | disposition home or self-care (01) ==
LOC: ED 11:47 → MED 11:47 → ICU 18:26 → MED 21:51
PROVIDERS: ADMIT Nurse Practitioner; ATTEND Internal Medicine

== ENCOUNTER 2022-05-27 17:19 | Observation (INO) ==
[2022-05-27 20:10] LABS: ABS Basophils 0.1 10^3/ul (0-0.2); ABS Lymphocytes 1.8 10^3/ul (1.0-4.8); ABS Monocytes 0.9 10^3/ul (0-0.8); ABS Neutrophils 9.3 10^3/ul (1.5-7.7); Eosinophil % 0.2 %; Hematocrit 42 % (35-47); Hemoglobin 13.2 g/dL (12.0-16.0); Lymphocyte % 14.7 %; Mean Corpuscular HGB Conc 32 g/dL (31-36); Mean Corpuscular Hemoglobin 28 pg (27-31); Mean Corpuscular Volume 89 fL (80-97); Mean Platelet Volume 9.2 fL (7.4-10.4); Platelet Count 292 10^3/uL (150-450); Red Blood Count 4.71 10^6 /uL (3.70-4.87); Red Cell Distribution Width 16 % (10-15); White Blood Count 12.1 10^3/uL (3.5-10.8)
[2022-05-27 20:46] LABS: Albumin 4.2 g/dL (3.2-5.2); Albumin/Globulin Ratio 1.4 (1-3); Calcium 11.4 mg/dL (8.6-10.3); Globulin 3.1 g/dL (2-4); Potassium 4.6 mmol/L (3.5-5.0); Total Bilirubin 0.6 mg/dL (0.2-1.0); Total Protein 7.3 g/dL (6.4-8.9); eGFR CKD-EPI 31.8 (>60)
[2022-05-27 20:59] LABS: TSH Ultra Thyroid Stim Horm 1.74 mcIU/mL (0.34-5.60)
[2022-05-27] MEDS ORDERED: NS 0.9% 1000 ml BAG 1,000 ML IV ONE (20:59)
[2022-05-27 21:28] LABS: High Sensitivity Troponin 1 Hr 11 pg/mL (<15)
[2022-05-28] MEDS ORDERED: Iodixanol (CONTRAST) 320 MG/ML 100 ML SDV IV ONE (00:20)
[2022-05-28 02:04] LABS: Urine Appearance Clear; Urine Bilirubin Negative (Negative); Urine Color Yellow; Urine Glucose Negative (Negative); Urine Ketones Negative (Negative); Urine Specific Gravity 1.015 (1.005-1.030)
[2022-05-28 02:05] LABS: Urine Blood Trace (Intact) (Negative); Urine Nitrite Negative (Negative); Urine Protein Negative (Negative); Urine Urobilinogen 0.2 (Negative) (Negative)
[2022-05-28 02:17] LABS: Urine Bacteria Absent (Absent); Urine Red Blood Cell Trace(0-2/hpf) (Absent); Urine Squamous Epithelial Cell Present (Absent); Urine White Blood Cell Trace(0-5/hpf) (Absent)
[2022-05-28] MEDS ORDERED: Ciprofloxacin 400mg IVPREMIX 400 MG/200 ML BAG IVPB ONE (03:16)
[2022-05-28] MEDS ORDERED: NS 0.9% 500 ml BAG 500 ML IV ONE (03:18)
[2022-05-28] MEDS ORDERED: metroNIDAZOLE IV 500 MG/100ML 500 MG/100 ML BAG IVPB ONE (03:18)
[2022-05-28] MEDS ORDERED: NS 0.9% 1000 ml BAG 1,000 ML IV ONE (03:38)
[2022-05-28] MEDS ORDERED: NS 0.9% 1000 ml BAG 1,000 ML IV SCH (07:00)
[2022-05-28] MEDS ORDERED: Ciprofloxacin 400mg IVPREMIX 400 MG/200 ML BAG IVPB SCH (08:00)
[2022-05-28 08:14] LABS: ABS Basophils 0.1 10^3/ul (0-0.2); ABS Eosinophils 0.2 10^3/ul (0-0.6); ABS Lymphocytes 2.1 10^3/ul (1.0-4.8); ABS Monocytes 0.9 10^3/ul (0-0.8); ABS Neutrophils 6.9 10^3/ul (1.5-7.7); Eosinophil % 1.6 %; Hematocrit 38 % (35-47); Hemoglobin 12.3 g/dL (12.0-16.0); Lymphocyte % 20.8 %; Mean Corpuscular HGB Conc 32 g/dL (31-36); Mean Corpuscular Hemoglobin 29 pg (27-31); Mean Corpuscular Volume 89 fL (80-97); Mean Platelet Volume 8.8 fL (7.4-10.4); Nucleated Red Blood Cells % 0.1; Platelet Count 245 10^3/uL (150-450); Red Blood Count 4.29 10^6 /uL (3.70-4.87); Red Cell Distribution Width 17 % (10-15); White Blood Count 10.2 10^3/uL (3.5-10.8)
[2022-05-28 08:26] LABS: Activated Partial Thrombo Time 35.1 seconds (26.0-38.0); INR 1.32 (0.89-1.11)
[2022-05-28 08:51] LABS: Albumin 3.8 g/dL (3.2-5.2); Albumin/Globulin Ratio 1.4 (1-3); Calcium 10.4 mg/dL (8.6-10.3); Globulin 2.7 g/dL (2-4); Magnesium 1.3 mg/dL (1.9-2.7); Phosphorus 2.7 mg/dL (2.5-5.0); Potassium 4.1 mmol/L (3.5-5.0); Total Bilirubin 0.9 mg/dL (0.2-1.0); Total Protein 6.5 g/dL (6.4-8.9); eGFR CKD-EPI 48.1 (>60)
[2022-05-28 10:14] LABS: Urine Creatinine Concentration 145.13 mg/dL
[2022-05-28] MEDS ORDERED: metroNIDAZOLE IV 500 MG/100ML 500 MG/100 ML BAG IVPB SCH (12:00)
[2022-05-28 16:05] VITALS: BP 126/74
[2022-05-29] MEDS ORDERED: Ciprofloxacin 400mg IVPREMIX 400 MG/200 ML BAG IVPB SCH (09:00)
== END 2022-05-28 14:28 | disposition home or self-care (01) ==
LOC: ED 17:19 → SUATTDRO 05-28 06:35 → EDHOLD 05-28 06:35 → INTOOBSV 05-28 06:35
PROVIDERS: ADMIT Internal Medicine; ATTEND Internal Medicine

== ENCOUNTER 2024-07-06 12:55 | Observation (INO) ==
[2024-07-06 13:18] LABS: ABS Basophils 0.1 10^3/uL (0.0-0.1); ABS Eosinophils 0.1 10^3/uL (0.0-0.5); ABS Lymphocytes 3.4 10^3/uL (1.0-4.8); ABS Nucleated RBC 0.02 10^3/ul; Eosinophil % 0.4 %; Hematocrit 46.7 % (35-45); Hemoglobin 15.2 g/dL (11.5-14.3); Lymphocyte % 24.7 %; Mean Corpuscular Hemoglobin 29.7 pg (27-33); Mean Corpuscular Hgb Conc 32.6 g/dL (31-36); Mean Corpuscular Volume 91.1 fL (80-97); Nucleated Red Blood Cells % 0.2 %/100WBC (0.0-0.8); Platelet Count 428 10^3/uL (150-450); Red Blood Count 5.12 10^6/uL (3.63-4.92); Red Cell Distribution Width 16.2 % (12-17); White Blood Count 13.6 10^3/uL (3.8-11.8)
[2024-07-06] MEDS: Iodixanol 320 (CONTRAST) 100 ML SDV IV ONE (13:22)
[2024-07-06 14:21] LABS: Activated Partial Thrombo Time 38.5 seconds (26.0-38.0); INR 1.67 (0.85-1.14)
[2024-07-06 14:38] LABS: High Sensitivity Troponin 1 Hr 61 pg/mL (<15)
[2024-07-06 14:50] LABS: Albumin 4.1 g/dL (3.2-5.2); Albumin/Globulin Ratio 1.1 (1-3); C Reactive Protein 8.43 mg/L (<8.01); Calcium 11.4 mg/dL (8.6-10.3); Creatinine, Serum 1.54 mg/dL (0.51-0.95); Globulin 3.8 g/dL (2-4); HDL Cholesterol 40.5 mg/dL; Total Bilirubin 0.9 mg/dL (0.2-1.0); Total Protein 7.9 g/dL (6.4-8.9); eGFR CKD-EPI 34.1 (>60)
[2024-07-06 14:51] LABS: Direct Bilirubin 0.1 mg/dL (0.03-0.18); Indirect Bilirubin 0.8 mg/dL (0.3-1.0); Potassium 4.3 mmol/L (3.5-5.0)
[2024-07-06] MEDS: Lactated Ringers 1000 ml BAG 1,000 ML IV ONE ×2 (15:34→16:32)
[2024-07-06] MEDS: Piperacillin/Tazobac 3.375 BAG 3.375 GM/100 ML BAG IV ONE (15:54)
[2024-07-06] MEDS ORDERED: Iodixanol (CONTRAST) 320 MG/ML 100 ML SDV IV ONE ×2 (16:10→16:20)
[2024-07-06] MEDS ORDERED: Polyethylene Glycol 3350 17 GM PACKET PO PRN (18:41)
[2024-07-06] MEDS ORDERED: Al Hydrox/Mg Hydrox/Simet LIQ 30 ML UDC PO PRN (18:41)
[2024-07-06] MEDS: NS 0.9% 1000 ml BAG 1,000 ML IV SCH (18:57)
[2024-07-07 01:30] LABS: Urine Appearance Clear; Urine Bacteria Absent /HPF (Absent); Urine Bilirubin Negative (Negative); Urine Blood Negative (Negative); Urine Color Yellow; Urine Glucose Negative (Negative); Urine Ketones Negative (Negative); Urine Nitrite Negative (Negative); Urine Protein 1+ (>=30 mg/dL) (Negative); Urine Red Blood Cell Absent /HPF (0-Trace); Urine Specific Gravity >1.050 (1.002-1.030); Urine Squamous Epithelial Cell Present /HPF (Absent); Urine Urobilinogen Negative (Negative); Urine White Blood Cell Absent /HPF (0-Trace); Urine pH 5.5 (5.0-8.0)
[2024-07-07 06:58] LABS: ABS Basophils 0.1 10^3/uL (0.0-0.1); ABS Eosinophils 0.2 10^3/uL (0.0-0.5); ABS Lymphocytes 2.9 10^3/uL (1.0-4.8); ABS Monocytes 0.9 10^3/uL (0.0-0.9); ABS Neutrophils 7.1 10^3/uL (1.5-7.6); Eosinophil % 1.9 %; Hematocrit 42.6 % (35-45); Hemoglobin 13.6 g/dL (11.5-14.3); Lymphocyte % 26.1 %; Mean Corpuscular Hemoglobin 29.8 pg (27-33); Mean Corpuscular Hgb Conc 31.8 g/dL (31-36); Mean Corpuscular Volume 93.6 fL (80-97); Mean Platelet Volume 8.9 fL (7.5-11.2); Platelet Count 301 10^3/uL (150-450); Red Blood Count 4.55 10^6/uL (3.63-4.92); White Blood Count 11.2 10^3/uL (3.8-11.8)
[2024-07-07 07:19] LABS: Calcium 10.1 mg/dL (8.6-10.3); Creatinine, Serum 1.52 mg/dL (0.51-0.95); eGFR CKD-EPI 34.7 (>60)
[2024-07-07] MEDS: Sulfur Hexaflouride MICROSPHR 25 MG VIAL IV PRN (11:00)
[2024-07-08 09:23] LABS: Anion Gap 12 mmol/L (2-16); Blood Urea Nitrogen 23 mg/dL (6-24); CO2 Carbon Dioxide 20 mmol/L (22-32); Calcium 10.2 mg/dL (8.6-10.3); Chloride 105 mmol/L (101-111); Creatinine, Serum 1.08 mg/dL (0.51-0.95); Glucose 82 mg/dL (70-100); Sodium 137 mmol/L (135-145); eGFR CKD-EPI 52.3 (>60)
[2024-07-09 13:26] VITALS: BP 123/68
== END 2024-07-09 16:00 | disposition home or self-care (01) ==
LOC: EDHOLD 12:55 → ED 12:55 → MEDTELE 20:13
PROVIDERS: ADMIT Internal Medicine; ATTEND Internal Medicine